=== PATIENT | female | born 1995 | race Two or more races ===

== ENCOUNTER 2022-07-11 09:20 | Emergency (ER) | payer MEDICAID, OTHER, SELFPAY ==
[2022-07-11 09:25] VITALS: BP 107/42; PULSE 72; RESP 18; TEMP 36.6; O2SAT 98; BMI 22.3
[2022-07-11 09:47] LABS: MANUAL DIFF FLAG NO
[2022-07-11 09:49] LABS: Basophils Percent Auto 0.3 % (0-2); Eosinophils Percent Auto 0.3 % (0-4); Hematocrit 34.6 % (37.0-47.0); Hemoglobin 12.2 g/dl (12.0-16.0); Imm Gran Abs Auto 0.02 X10*3/uL (0.00-0.03); Imm Gran Pct Auto 0.3 % (0.0-0.4); Lymphocytes Absolute Auto 1.8 X10*3/uL (1.2-4.9); Lymphocytes Percent Auto 27.1 % (20-40); Mean Corpuscular HGB Conc 35.3 g/dl (31.0-35.0); Mean Corpuscular Hemoglobin 29.7 pg (27.0-33.0); Mean Corpuscular Volume 84.2 fL (80.0-98.0); Mean Platelet Volume 10.7 fL (9.4-12.3); Monocytes Absolute Auto 0.4 X10*3/uL (0.1-1.2); Monocytes Percent Auto 6.5 % (2-11); Neutrophils Absolute Auto 4.3 x10*3/uL (2.0-8.3); Neutrophils Percent Auto 65.5 % (45-73); Platelet Count 235 X10*3/uL (160-400); Red Blood Count 4.11 X10*6/uL (4.20-5.50); Red Cell Distribution Width 11.9 % (11.0-16.0); White Blood Count 6.6 X10*3/uL (4.8-10.8)
--- NOTE | 2022-07-11 09:56 | ED.NAVMDI ---
HPI - Nausea/Vomiting/Diarrhea General Chief complaint: Nausea/Vomiting/Diarrhea Stated complaint: headache, vomiting, body aches Time Seen by Provider: 07/11/22 09:49 History of Present Illness HPI Narrative: patient complains of 1 week of nausea and vomiting, no diarrhea, she also complains of body aches and a mild headache, she is not sure if she is Headache is mild, gradual onset, no dizziness or confusion, she attributes it to not eating normally for several days and feels very hungry Body aches are not accompanied by any fever no runny nose no cough no diarrhea no chills no sore throat no difficulty breathing or swallowing There is no abdominal pain there is no dysuria there is no vaginal bleeding no pelvic pain She believes last menstrual period was 5-6 weeks ago Related Data Previous Rx's Medication Instructions Recorded metoclopramide HCl 10 mg tablet 10 mg PO Q6H PRN nausea and 07/11/22 (Reglan) vomiting #10 tabs Allergies Allergy/AdvReac Type Severity Reaction Status Date / Time No Known Allergies Allergy Verified 07/11/22 09:31 [facility] Past Medical History Source: nursing notes reviewed Social History Social History Advance Directives: No Advance Directives Information Provided: Yes Physical Exam Vital Signs: Vital Signs: Last Vital Signs Temp 97.9 F 07/11/22 09:25 Pulse 72 07/11/22 09:25 Resp 18 07/11/22 09:25 BP 107/42 L 07/11/22 09:25 Pulse Ox 98 07/11/22 09:25 O2 Del Method 07/11/22 09:25 BMI result Body Mass Index 22.3 general appearance is comfortable relax no acute distress, and cooperative The eyes anicteric no pallor The pharynx no redness swelling or exudate, membranes are mildly dry Neck is supple The chest is clear to auscultation bilateral Heart no murmur Abdomen is soft and nontender Extremities no edema no rash Course Course Course Narrative: patient had a positive test, beta hCG was 887145 Urinalysis had a specific gravity of 1.03 mildly elevated, squamous epithelial were elevated, there was bacteria in a contaminated sample but patient has no symptoms of UTI and no treatment was offered now in this contaminated specimen No significant lab abnormality on chemistry or CBC, kidney function was normal glucose was 80 Patient responded well to Zofran and hydration and felt much better and was tolerating p.o. without nausea and was discharged after discussion about need to follow up with care and she was given the number of the [facility] napoles Medications Administered Discontinued Medications Generic Name Dose Route Start Last Admin Trade Name Divya PRN Reason Stop Dose Admin Sodium Chloride 1,000 mls @ 999 mls/hr 07/11/22 10:00 07/11/22 10:51 Ns IVCONT 07/11/22 11:00 999 mls/hr .[id number] ALLAN Administration Ondansetron HCl 4 mg 07/11/22 09:55 07/11/22 10:57 Ondansetron Hcl 4 Mg/2 Ml Vial IVPUSH 07/11/22 09:56 4 mg ONCE ONE Administration Medical Decision Making Lab Data MDM Lab Attestation statement: I reviewed the patient's lab results. 07/11/22 09:41 07/11/22 09:41 Labs: Lab Results 07/11/22 07/11/22 07/11/22 Range/Units 09:41 09:41 09:41 WBC 6.6 (4.8-10.8) X10*3/uL RBC 4.11 L (4.20-5.50) X10*6/uL Hgb 12.2 (12.0-16.0) g/dl Hct 34.6 L (37.0-47.0) % MCV 84.2 (80.0-98.0) fL MCH 29.7 (27.0-33.0) pg MCHC 35.3 H (31.0-35.0) g/dl RDW 11.9 (11.0-16.0) % Plt Count 235 (160-400) X10*3/uL MPV 10.7 (9.4-12.3) fL Immature Gran % (Auto) 0.3 (0.0-0.4) % Neut % (Auto) 65.5 (45-73) % Lymph % (Auto) 27.1 (20-40) % Delta % (Auto) 6.5 (2-11) % Eos % (Auto) 0.3 (0-4) % Baso % (Auto) 0.3 (0-2) % Lymph # (Auto) 1.8 (1.2-4.9) X10*3/uL Delta # (Auto) 0.4 (0.1-1.2) X10*3/uL Eos # (Auto) 0.0 (0.0-0.4) X10*3/uL Baso # (Auto) 0.0 (0.0-0.2) X10*3/uL Abs Immat Gran (auto) 0.02 (0.00-0.03) X10*3/uL Absolute Neuts (auto) 4.3 (2.0-8.3) x10*3/uL Absolute Nucleated RBC 0.000 (0.0-0.012) X10*3/uL Nucleated RBC % (auto) 0.0 (0.0-0.2) /100WBC Sodium 136 (135-145) mmol/L Potassium 3.7 (3.3-5.1) mmol/L Chloride 105 (96-108) mmol/L Carbon Dioxide 21 L (22-29) mmol/L Anion Gap 14 (12-20) BUN 7 L (9-16) mg/dL Creatinine 0.56 (0.5-1.4) mg/dL Estim Creat Clear Calc 97.4 Estimated GFR > 60 Random Glucose 80 (60-115) mg/dL Calcium 9.3 (8.4-10.2) mg/dL Beta HCG, Quant 275090 mIU/mL Urine Color Urine Appearance Urine pH (5.0-9.0) Ur Specific [place] (1.005-1.025) Urine Protein (Neg-Trace) mg/dL Urine Glucose (UA) (Negative) mg/dL Urine Ketones (Negative) mg/dL Urine Blood (Negative) Urine Nitrite (Negative) Ur Leukocyte Esterase (Negative) Urine RBC (0-2) /HPF Urine WBC (0-5) /HPF Ur Squamous Epith Cells (0-2) /HPF Urine Bacteria (None Seen) Hyaline Casts (0-2) /LPF Urine Test (NEGATIVE) COVID-19 (LU) (Negative) COVID-19 Clin Com Influenza Type A (PARUL) Negative (Negative) Influenza Type B (PARUL) Negative (Negative) Influenza A & B Note See Note 07/11/22 07/11/22 07/11/22 Range/Units 09:41 10:01 10:01 WBC (4.8-10.8) X10*3/uL RBC (4.20-5.50) X10*6/uL Hgb (12.0-16.0) g/dl Hct (37.0-47.0) % MCV (80.0-98.0) fL MCH (27.0-33.0) pg MCHC (31.0-35.0) g/dl RDW (11.0-16.0) % Plt Count (160-400) X10*3/uL MPV (9.4-12.3) fL Immature Gran % (Auto) (0.0-0.4) % Neut % (Auto) (45-73) % Lymph % (Auto) (20-40) % Delta % (Auto) (2-11) % Eos % (Auto) (0-4) % Baso % (Auto) (0-2) % Lymph # (Auto) (1.2-4.9) X10*3/uL Delta # (Auto) (0.1-1.2) X10*3/uL Eos # (Auto) (0.0-0.4) X10*3/uL Baso # (Auto) (0.0-0.2) X10*3/uL Abs Immat Gran (auto) (0.00-0.03) X10*3/uL Absolute Neuts (auto) (2.0-8.3) x10*3/uL Absolute Nucleated RBC (0.0-0.012) X10*3/uL Nucleated RBC % (auto) (0.0-0.2) /100WBC Sodium (135-145) mmol/L Potassium (3.3-5.1) mmol/L Chloride (96-108) mmol/L Carbon Dioxide (22-29) mmol/L Anion Gap (12-20) BUN (9-16) mg/dL Creatinine (0.5-1.4) mg/dL Estim Creat Clear Calc Estimated GFR Random Glucose (60-115) mg/dL Calcium (8.4-10.2) mg/dL Beta HCG, Quant mIU/mL Urine Color Dark Yellow Urine Appearance Cloudy Urine pH 6.0 (5.0-9.0) Ur Specific [place] >= 1.030 H (1.005-1.025) Urine Protein 30 (1+) H (Neg-Trace) mg/dL Urine Glucose (UA) Negative (Negative) mg/dL Urine Ketones >=160 (Negative) mg/dL Urine Blood Negative (Negative) Urine Nitrite Negative (Negative) Ur Leukocyte Esterase Small (1+) H (Negative) Urine RBC 0-2 (0-2) /HPF Urine WBC 0-5 (0-5) /HPF Ur Squamous Epith Cells >20 (0-2) /HPF Urine Bacteria 4+ (None Seen) Hyaline Casts 0-2 (0-2) /LPF Urine Test WEAKLY POSITIVE H (NEGATIVE) COVID-19 (LU) Negative (Negative) COVID-19 Clin Com See Note Influenza Type A (PARUL) (Negative) Influenza Type B (PARUL) (Negative) Influenza A & B Note Discharge Plan Discharge Clinical Impression: Hyperemesis gravidarum, Patient Disposition: Home, Self-Care Additional Instructions: follow closely with midwives for care [phone] For vomiting you can use Reglan as needed for nausea Return any time or for uncontrolled vomiting dehydration abdominal pain vaginal bleeding any worse condition or any concerns Drink plenty of fluids, sometimes frequent small portions of food and able you to eat without becoming nauseous Prescriptions: New metoclopramide HCl [Reglan] 10 mg tablet 10 mg PO Q6H PRN (Reason: nausea and vomiting) Qty: 10 0RF Referrals: Cain Combs MD [Physician] - Stand Alone Forms: Work/School Release Interventions: ED Discharge Assessment Last Done: 07/11/22 13:50 Discharge Date/Time: 07/11/22 13:51
[2022-07-11 10:05] LABS: COVID-19 Test Negative (Negative); IDNOW Serial# 16C4AD1C; IDNOW Serial# BCCEAD1C; Influenza A Negative (Negative); Influenza B2 Negative (Negative)
[2022-07-11 10:08] LABS: Anion Gap 14 (12-20); Blood Urea Nitrogen 7 mg/dL (9-16); Calcium 9.3 mg/dL (8.4-10.2); Carbon Dioxide 21 mmol/L (22-29); Chloride 105 mmol/L (96-108); Creatinine Clr Calc Pharmacy 97.4; Estimated Glomerular Filt Rate > 60; Glucose Random 80 mg/dL (60-115); Potassium 3.7 mmol/L (3.3-5.1); Sodium 136 mmol/L (135-145)
[2022-07-11 10:10] LABS: Appearance Urine Cloudy; Color Urine Dark Yellow; Glucose Urine UA Negative (Negative); Leukocyte Esterase Urine Small (1+) (Negative); Nitrite Urine Negative (Negative); Specific Gravity - Urine >= 1.030 (1.005-1.025); UMIC TRIGGER UACC YES; Urine Blood Negative (Negative); Urine Ketones >=160 mg/dL (Negative); Urine Protein 30 (1+) mg/dL (Neg-Trace)
[2022-07-11 10:16] LABS: UPreg QC Valid YES; Urine Pregnancy WEAKLY POSITIVE (NEGATIVE)
[2022-07-11 10:18] LABS: Bacteria Urine 4+ (None Seen); Hyaline Casts Urine 0-2 /LPF (0-2); RBC Urine 0-2 /HPF (0-2); Squamous Epithelial Cell Urine >20 /HPF (0-2); UACC Culture Trigger YES; WBC Urine 0-5 /HPF (0-5)
[2022-07-11] MEDS: 0.9 % Sodium Chloride 1,000 ML 999 ML IVCONT (10:51)
[2022-07-11] MEDS: ondansetron HCL 4 MG/2 ML VIAL IVPUSH (10:57)
== END 2022-07-11 13:51 | disposition home or self-care (01) ==
PROVIDERS: Physician Assistant Medical; Emergency Provider Emergency Medicine
DX: O21.0 Mild hyperemesis gravidarum (principal); Z3A.01 Less than 8 weeks gestation of pregnancy; Z20.822 Contact with and (suspected) exposure to COVID-19; Z79.899 Other long term (current) drug therapy
CPT/HCPCS: 80048; 81001; 81025; 84702; 85025; 87086; 87502; 87635; 96374; 99283; 99284; J2405

== ENCOUNTER 2022-07-19 15:04 | Emergency (ER) | payer MEDICAID, OTHER, SELFPAY ==
--- NOTE | ~2022-07-19 | US_ITS ---
EXAMINATION: US OBSTETRICAL ULTRASOUND CLINICAL INFORMATION: , abdominal pain COMPARISON: None. Single live intrauterine . [place]-rump length 2.4 cm corresponds to 9 week 1 day . There is a yolk sac. heart rate 165 bpm. 2 associated fluid collections. One measuring 2.2 x 1.6 x 1.3 cm. Another 2.7 x 1.4 x 1.1 cm. These could represent areas of subchorionic bleed The right ovary is 2.9 x 2 x 2 cm. Normal-appearing. The left ovary is 3 x 2.1 x 2.4 cm. Normal-appearing. No free fluid US/US OB <= 14 weeks fetus IMPRESSION: Single live intrauterine . 9 weeks 1 day by ultrasound criteria. 2 fluid collections are identified by the electronics recycler may represent areas of subchorionic hemorrhage
--- NOTE | ~2022-07-19 | US_ITS ---
EXAMINATION: US ABDOMEN LIMITED CLINICAL INFORMATION: Right upper quadrant pain. COMPARISON: None TECHNIQUE: Real-time imaging of the right upper quadrant abdominal viscera. FINDINGS: The pancreas is not well delineated. No free fluid in the area. Liver is grossly within normal limits. No lesion or ductal dilatation. Gallbladder limited in visualization due to shadowing. I suspect multiple gallstones or possibly sludge or even lesions/polyp formation. No convincing evidence of gallbladder wall edema on the imaging submitted. The common duct is 5 mm within normal limits. The right kidney is 10 cm. No hydronephrosis or mass is seen. Impression; The gallbladder appears abnormal. Multiple filling defects with some shadowing would suggest gallstones. Given the overall appearance tumefactive sludge would be a consideration. Polyp formation cannot be excluded. No convincing evidence for gallbladder wall edema. There is no ductal dilatation
[2022-07-19 15:06] VITALS: BP 111/73; PULSE 72; RESP 18; TEMP 36.4; O2SAT 98; BMI 21.7
--- NOTE | 2022-07-19 15:06 | ED_ITS ---
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 She states her vomit has occasionally had red steaks, no clots, coffe ground emesis, or large volume hematemesis. She states she was seen here on the 11 of July for similar complaints, was sent home with ashley Haider with some improvement in the nausea. She states the epigastric pain is after she eats. She has had several episodes of forceful vomiting with blood-streaked emesis. She denies any bloody bowel movements or melanotic stools. She denies any lower abdominal cramping, vaginal bleeding. She denies any fever or chills. She does report intermittent right upper quadrant pain and right upper back pain as well. The pains come and go. <RAMOS Polanco - Last Filed: 07/19/22 18:00> MD Complaint: abdominal pain <RAMOS Polanco - Last Filed: 07/19/22 18:00> Onset (ago): week(s) (2) <RAMOS Polanco - Last Filed: 07/19/22 18:00> Pain Consistency: intermittent <RAMOS Polanco Last Filed: 07/19/22 18:00> Location: abdomen <RAMOS Polanco Last Filed: 07/19/22 18:00> Severity: moderate <RAMOS Polanco Last Filed: 07/19/22 18:00> Severity scale (1-10): 6 <RAMOS Polanco Last Filed: 07/19/22 18:00> Quality: Aching and Burning <RAMOS Polanco Last Filed: 07/19/22 18:00> Relieving factors: none <RAMOS Polanco Last Filed: 07/19/22 18:00> Exacerbating factors: eating <RAMOS Polanco Last Filed: 07/19/22 18:00> Associated symptoms: nausea, vomiting and abdominal pain <RAMOS Polanco Last Filed: 07/19/22 18:00> Vaginal discharge: none <RAMOS Polanco Last Filed: 07/19/22 18:00> Vaginal bleeding: none <RAMOS Polanco Last Filed: 07/19/22 18:00> Patient : Yes <RAMOS Polanco Last Filed: 07/19/22 18:00> Related Data Home medications: Previous Rx's Medication Instructions Recorded metoclopramide HCl 10 mg tablet 10 mg PO Q6H PRN nausea and 07/11/22 (Reglan) vomiting #10 tabs cephalexin 500 mg tablet 500 mg PO Q6H 7 days #28 tabs 07/19/22 ondansetron 4 mg disintegrating 4 mg PO Q8H PRN nausea and 07/19/22 tablet vomiting #10 tabs pantoprazole 40 mg tablet,delayed 40 mg PO DAILY #30 tabs 07/19/22 release (Protonix) prenat.vits,jayesh,ykv-[id number] 1 tab PO DAILY #30 tabs 07/19/22 <RAMOS Weaver Last Filed: 07/19/22 15:13> Allergies/Adverse reactions: Allergies Allergy/AdvReac Type Severity Reaction Status Date / Time No Known Allergies Allergy Verified 07/11/22 09:31 <RAMOS Weaver Last Filed: 07/19/22 15:13> Review of Systems Review of Systems: Yes all other systems are reviewed and are negative <RAMOS Polanco Last Filed: 07/19/22 18:00> [facility] Social History Social History: Social History Alcohol intake: unknown Smoked in Last 30 Days: No Use of substances other than those prescribed or required for medical reasons: Unknown Advance Directives: No Advance Directives Information Provided: No Patient : Yes <RAMOS Weaver - Last Filed: 07/19/22 15:13> Physical Exam Vital Signs: Vital Signs: Last Vital Signs Temp 98.1 F 07/19/22 20:27 Pulse 70 07/19/22 20:27 Resp 16 07/19/22 20:27 BP 104/61 07/19/22 20:27 Pulse Ox 98 07/19/22 20:27 O2 Del Method 07/19/22 20:27 BMI result Body Mass Index 21.7 <RAMOS Weaver - Last Filed: 07/19/22 15:13> Vital Signs: Last Vital Signs Temp 98.1 F 07/19/22 20:27 Pulse 70 07/19/22 20:27 Resp 16 07/19/22 20:27 BP 104/61 07/19/22 20:27 Pulse Ox 98 07/19/22 20:27 O2 Del Method 07/19/22 20:27 BMI result Body Mass Index 21.7 <RAMOS Polanco - Last Filed: 07/19/22 18:00> Vital Signs: Last Vital Signs Temp 98.1 F 07/19/22 20:27 Pulse 70 07/19/22 20:27 Resp 16 07/19/22 20:27 BP 104/61 07/19/22 20:27 Pulse Ox 98 07/19/22 20:27 O2 Del Method 07/19/22 20:27 BMI result Body Mass Index 21.7 <RAMOS Goncalves - Last Filed: 07/19/22 22:44> Appearance: Alert. Oriented X3. No acute distress. Eyes: Pupils equal, round and reactive to light. ENT: Pharynx normal. Moist mucus membranes. Neck: Normal inspection. Neck supple. CVS: Normal heart rate and rhythm. Pulses normal. Respiratory: No respiratory distress. Breath sounds normal. Abdomen: Soft with epigastric tenderness, negative Regan sign. normal +BS x4. Pelvic deferred. Skin: Skin warm and dry. Normal skin color. Normal skin turgor. No rashes. Extremities: No lower extremity edema. Neuro: Oriented X 3. No motor deficit. No sensory deficit. Nonfocal <RAMOS Polanco - Last Filed: 07/19/22 18:00> Course Course Course Narrative: ZANDER--26-year-old female @ unknown weeks gestation. Unknown LMP. presenting to the ED c/o nausea, vomiting, blood streaks in vomit x few days. Also reports chest pain and headache. Found out she was in ED on 07/11 when she presented to ED w/similar sx. Denies abdominal pain EKG, Labs including hCG, COVID-19/influenza, UA, IV have ordered <RAMOS Weaver - Last Filed: 07/19/22 15:13> Reevaluation(s) Reevaluation #1: Labs showing stable hematocrit, up to 35.8 from 30/4 0.6 last week. No leukocytosis. Platelets are normal. She has transaminitis with normal bilirubin and alk-phos. Her troponin is normal. She has mild elevation of her lipase as well, however not 3 times the upper limit of normal. Less likely pancreatitis. Her hCG is on the rise. Will get right upper quadrant ultrasound given her right upper quadrant pain and back pain, this could be referred from the gallbladder. She was treated with Tums, Prilosec and Zofran. Will reassess. <RAMOS Polanco - Last Filed: 07/19/22 18:00> Reevaluation #2: Ultrasound of right upper quadrant with normal gallbladder, multiple filling defects with some shadowing which could suggest gallstones, patient appears comfortable, negative/benign abdominal exam upon re-evaluation. Polyp formation can not be excluded discuss these results with patient. No convincing evidence for gallbladder wall edema. No ductal dilation. Patient's urine does have an infection will discharge home on Keflex as she is currently . According to patient she is however unsure how far along she is. Will order OB pelvic and transvaginal. <RAMOS Goncalves - Last Filed: 07/19/22 22:44> Time: 20:07 <RAMOS Goncalves - Last Filed: 07/19/22 22:44> Reevaluation #3: Patient's ultrasound with single live intrauterine measuring 9 weeks and 1 day by ultrasound. There are 2 fluid collections that are identified concerning for subchorionic hemorrhage, patient denies lower abdominal pain, vaginal bleeding or discharge, contractions. Patient refusing pelvic exam. Explained to her that this could potentially lead to a miscarriage or a normal . I did explain to her that she needs to return if she experiences lower abdominal pain or abdominal pain, contractions, vaginal bleeding, went over strict return precautions. I will send her home with vitamins, OBGYN follow-up. I advised her to return with any new or worsening symptoms. Educated patient on diagnosis and treatment plan, answered all question, patient verbalizes understanding. At this time patient will be discharged home, advised to return with new or worsening symptoms. Educated on worrisome signs and symptoms and when to return. At this time I feel comfortable discharge home. Discussed this case w/ my attending Dr. Landaverde who agrees w. diagnosis and tx plan. To know at time of discharge patient's pain and right upper quadrant improved, I did give her strict return precautions and advised her to return if this worsens. She is tolerating p.o. and appears comfortable no acute distress. Stable vitals. <RAMOS Goncalves - Last Filed: 07/19/22 22:44> Medications Administered Discontinued Medications Generic Name Dose Route Start Last Admin Trade Name Julio Cesarq PRN Reason Stop Dose Admin Calcium Carbonate 1,500 mg 07/19/22 16:11 07/19/22 16:20 Calcium Carbonate 750 Mg Tab.Chew PO 07/19/22 16:12 1,500 mg ONCE ONE Administration Sodium Chloride 1,000 mls @ 999 mls/hr 07/19/22 15:15 07/19/22 16:29 Ns IV 07/19/22 16:15 Infused .Q1H1M ALLAN Infusion Omeprazole 40 mg 07/19/22 16:11 07/19/22 16:20 Omeprazole 40 Mg Capsule.Dr PO 07/19/22 16:12 40 mg ONCE ONE Administration Ondansetron HCl 4 mg 07/19/22 16:11 07/19/22 16:20 Ondansetron Odt 4 Mg Tab.Rapdis TRANSLINGU 07/19/22 16:12 4 mg ONCE ONE Administration <RAMOS Weaver - Last Filed: 07/19/22 15:13> Medications Administered Discontinued Medications Generic Name Dose Route Start Last Admin Trade Name Freq PRN Reason Stop Dose Admin Calcium Carbonate 1,500 mg 07/19/22 16:11 07/19/22 16:20 Calcium Carbonate 750 Mg Tab.Chew PO 07/19/22 16:12 1,500 mg ONCE ONE Administration Sodium Chloride 1,000 mls @ 999 mls/hr 07/19/22 15:15 07/19/22 16:29 Ns IV 07/19/22 16:15 Infused .Q1H1M ALLAN Infusion Omeprazole 40 mg 07/19/22 16:11 07/19/22 16:20 Omeprazole 40 Mg Capsule. PO 07/19/22 16:12 40 mg ONCE ONE Administration Ondansetron HCl 4 mg 07/19/22 16:11 07/19/22 16:20 Ondansetron Odt 4 Mg Tab.Rapdis TRANSLINGU 07/19/22 16:12 4 mg ONCE ONE Administration <RAMOS Polanco - Last Filed: 07/19/22 18:00> Medications Administered Discontinued Medications Generic Name Dose Route Start Last Admin Trade Name Freq PRN Reason Stop Dose Admin Calcium Carbonate 1,500 mg 07/19/22 16:11 07/19/22 16:20 Calcium Carbonate 750 Mg Tab.Chew PO 07/19/22 16:12 1,500 mg ONCE ONE Administration Sodium Chloride 1,000 mls @ 999 mls/hr 07/19/22 15:15 07/19/22 16:29 Ns IV 07/19/22 16:15 Infused .Q1H1M ALLAN Infusion Omeprazole 40 mg 07/19/22 16:11 07/19/22 16:20 Omeprazole 40 Mg Capsule. PO 07/19/22 16:12 40 mg ONCE ONE Administration Ondansetron HCl 4 mg 07/19/22 16:11 07/19/22 16:20 Ondansetron Odt 4 Mg Tab.Rapdis TRANSLINGU 07/19/22 16:12 4 mg ONCE ONE Administration <RAMOS Goncalves - Last Filed: 07/19/22 22:44> Medical Decision Making Medical Decision Making MDM Narrative: 26-year-old female presents to the ER for evaluation of burning epigastric abdominal pain, chest pain, blood-streaked vomitus and headaches. Seen recently in the ER for the same, sent home with antiemetics. She also endorses right upper quadrant pain and scapular pain. Could be referred from a gallbladder. She has mild transaminitis on lab work. Ultrasound is pending. Her blood streaked vomitus is most consistent with minor Trish-Givens tears and not over upper GI bleeding. Could be some mild gastritis as well. <RAMOS Polanco - Last Filed: 07/19/22 18:00> Differential Diagnosis Differential Diagnoses: The differential diagnosis associated with the presentation includes <RAMOS Polanco - Last Filed: 07/19/22 18:00> Upper GI bleed, Trish-Givens tears, gastritis, PUD, cholecystitis, biliary colic, less likely ACS or PE, no evidence of threatened or miscarriage <RAMOS Polanco - Last Filed: 07/19/22 18:00> Lab Data MDM Lab Attestation statement: I reviewed the patient's lab results. <RAMOS Polanco Last Filed: 07/19/22 18:00> Mild hyponatremia most likely hypovolemic in nature. Stable blood counts, no leukocytosis. Transaminitis without abnormalities of bilirubin or alk-phos to suggest a biliary obstruction <RAMOS Polanco Last Filed: 07/19/22 18:00> Result Diagrams: 07/19/22 15:24 07/19/22 15:24 <RAMOS Weaver - Last Filed: 07/19/22 15:13> Labs: Lab Results 07/19/22 07/19/22 07/19/22 Range/Units 15:24 15:24 15:24 WBC 6.0 (4.8-10.8) X10*3/uL RBC 4.25 (4.20-5.50) X10*6/uL Hgb 12.6 (12.0-16.0) g/dl Hct 35.8 L (37.0-47.0) % MCV 84.2 (80.0-98.0) fL MCH 29.6 (27.0-33.0) pg MCHC 35.2 H (31.0-35.0) g/dl RDW 11.9 (11.0-16.0) % Plt Count 240 (160-400) X10*3/uL MPV 11.0 (9.4-12.3) fL Immature Gran % (Auto) 0.2 (0.0-0.4) % Neut % (Auto) 62.5 (45-73) % Lymph % (Auto) 26.8 (20-40) % [place] % (Auto) 9.8 (2-11) % Eos % (Auto) 0.2 (0-4) % Baso % (Auto) 0.5 (0-2) % Lymph # (Auto) 1.6 (1.2-4.9) X10*3/uL [place] # (Auto) 0.6 (0.1-1.2) X10*3/uL Eos # (Auto) 0.0 (0.0-0.4) X10*3/uL Baso # (Auto) 0.0 (0.0-0.2) X10*3/uL Abs Immat Gran (auto) 0.01 (0.00-0.03) X10*3/uL Absolute Neuts (auto) 3.8 (2.0-8.3) x10*3/uL Absolute Nucleated RBC 0.000 (0.0-0.012) X10*3/uL Nucleated RBC % (auto) 0.0 (0.0-0.2) /100WBC PT (10.0-13.1) SEC INR (0.9-1.1) Sodium 131 L (135-145) mmol/L Potassium 3.7 (3.3-5.1) mmol/L Chloride 102 (96-108) mmol/L Carbon Dioxide 19 L (22-29) mmol/L Anion Gap 14 (12-20) BUN 6 L (9-16) mg/dL Creatinine 0.57 (0.5-1.4) mg/dL Estim Creat Clear Calc 98.3 Estimated GFR > 60 Random Glucose 86 (60-115) mg/dL Calcium 8.9 (8.4-10.2) mg/dL Magnesium 2.1 (1.6-2.6) mg/dL Total Bilirubin 0.9 (0.0-1.0) mg/dL Direct Bilirubin 0.4 (0.0-0.5) mg/dL AST 147 H (5-31) U/L ALT 151 H (0-31) U/L Alkaline Phosphatase 51 (39-117) U/L Troponin I High Sens < 3.5 (<3.5-17.0) ng/L Total Protein 7.2 (6.5-8.0) g/dL Albumin 4.1 (3.5-5.0) g/dL Lipase 93 H (8-78) U/L Beta HCG, Quant 840306 mIU/mL Urine Color Urine Appearance Urine pH (5.0-9.0) Ur Specific [place] (1.005-1.025) Urine Protein (Neg-Trace) mg/dL Urine Glucose (UA) (Negative) mg/dL Urine Ketones (Negative) mg/dL Urine Blood (Negative) Urine Nitrite (Negative) Ur Leukocyte Esterase (Negative) Urine RBC (0-2) /HPF Urine WBC (0-5) /HPF Ur Squamous Epith Cells (0-2) /HPF Calcium Oxalate Crystal Urine Bacteria (None Seen) Hyaline Casts (0-2) /LPF COVID-19 (LU) (Negative) COVID-19 Clin Com Influenza Type A (PARUL) (Negative) Influenza Type B (PARUL) (Negative) Influenza A & B Note 07/19/22 07/19/22 07/19/22 Range/Units 15:24 15:24 15:24 WBC (4.8-10.8) X10*3/uL RBC (4.20-5.50) X10*6/uL Hgb (12.0-16.0) g/dl Hct (37.0-47.0) % MCV (80.0-98.0) fL MCH (27.0-33.0) pg MCHC (31.0-35.0) g/dl RDW (11.0-16.0) % Plt Count (160-400) X10*3/uL MPV (9.4-12.3) fL Immature Gran % (Auto) (0.0-0.4) % Neut % (Auto) (45-73) % Lymph % (Auto) (20-40) % [place] % (Auto) (2-11) % Eos % (Auto) (0-4) % Baso % (Auto) (0-2) % Lymph # (Auto) (1.2-4.9) X10*3/uL [place] # (Auto) (0.1-1.2) X10*3/uL Eos # (Auto) (0.0-0.4) X10*3/uL Baso # (Auto) (0.0-0.2) X10*3/uL Abs Immat Gran (auto) (0.00-0.03) X10*3/uL Absolute Neuts (auto) (2.0-8.3) x10*3/uL Absolute Nucleated RBC (0.0-0.012) X10*3/uL Nucleated RBC % (auto) (0.0-0.2) /100WBC PT 16.0 H (10.0-13.1) SEC INR 1.4 H (0.9-1.1) Sodium (135-145) mmol/L Potassium (3.3-5.1) mmol/L Chloride (96-108) mmol/L Carbon Dioxide (22-29) mmol/L Anion Gap (12-20) BUN (9-16) mg/dL Creatinine (0.5-1.4) mg/dL Estim Creat Clear Calc Estimated GFR Random Glucose (60-115) mg/dL Calcium (8.4-10.2) mg/dL Magnesium (1.6-2.6) mg/dL Total Bilirubin (0.0-1.0) mg/dL Direct Bilirubin (0.0-0.5) mg/dL AST (5-31) U/L ALT (0-31) U/L Alkaline Phosphatase (39-117) U/L Troponin I High Sens (<3.5-17.0) ng/L Total Protein (6.5-8.0) g/dL Albumin (3.5-5.0) g/dL Lipase (8-78) U/L Beta HCG, Quant mIU/mL Urine Color Urine Appearance Urine pH (5.0-9.0) Ur Specific [place] (1.005-1.025) Urine Protein (Neg-Trace) mg/dL Urine Glucose (UA) (Negative) mg/dL Urine Ketones (Negative) mg/dL Urine Blood (Negative) Urine Nitrite (Negative) Ur Leukocyte Esterase (Negative) Urine RBC (0-2) /HPF Urine WBC (0-5) /HPF Ur Squamous Epith Cells (0-2) /HPF Calcium Oxalate Crystal Urine Bacteria (None Seen) Hyaline Casts (0-2) /LPF COVID-19 (LU) Negative (Negative) COVID-19 Clin Com See Note Influenza Type A (PARUL) Negative (Negative) Influenza Type B (PARUL) Negative (Negative) Influenza A & B Note See Note 07/19/22 Range/Units 19:50 WBC (4.8-10.8) X10*3/uL RBC (4.20-5.50) X10*6/uL Hgb (12.0-16.0) g/dl Hct (37.0-47.0) % MCV (80.0-98.0) fL MCH (27.0-33.0) pg MCHC (31.0-35.0) g/dl RDW (11.0-16.0) % Plt Count (160-400) X10*3/uL MPV (9.4-12.3) fL Immature Gran % (Auto) (0.0-0.4) % Neut % (Auto) (45-73) % Lymph % (Auto) (20-40) % [place] % (Auto) (2-11) % Eos % (Auto) (0-4) % Baso % (Auto) (0-2) % Lymph # (Auto) (1.2-4.9) X10*3/uL [place] # (Auto) (0.1-1.2) X10*3/uL Eos # (Auto) (0.0-0.4) X10*3/uL Baso # (Auto) (0.0-0.2) X10*3/uL Abs Immat Gran (auto) (0.00-0.03) X10*3/uL Absolute Neuts (auto) (2.0-8.3) x10*3/uL Absolute Nucleated RBC (0.0-0.012) X10*3/uL Nucleated RBC % (auto) (0.0-0.2) /100WBC PT (10.0-13.1) SEC INR (0.9-1.1) Sodium (135-145) mmol/L Potassium (3.3-5.1) mmol/L Chloride (96-108) mmol/L Carbon Dioxide (22-29) mmol/L Anion Gap (12-20) BUN (9-16) mg/dL Creatinine (0.5-1.4) mg/dL Estim Creat Clear Calc Estimated GFR Random Glucose (60-115) mg/dL Calcium (8.4-10.2) mg/dL Magnesium (1.6-2.6) mg/dL Total Bilirubin (0.0-1.0) mg/dL Direct Bilirubin (0.0-0.5) mg/dL AST (5-31) U/L ALT (0-31) U/L Alkaline Phosphatase (39-117) U/L Troponin I High Sens (<3.5-17.0) ng/L Total Protein (6.5-8.0) g/dL Albumin (3.5-5.0) g/dL Lipase (8-78) U/L Beta HCG, Quant mIU/mL Urine Color Yellow Urine Appearance Cloudy Urine pH 6.0 (5.0-9.0) Ur Specific [place] 1.015 (1.005-1.025) Urine Protein Negative (Neg-Trace) mg/dL Urine Glucose (UA) Negative (Negative) mg/dL Urine Ketones 80 (Negative) mg/dL Urine Blood Negative (Negative) Urine Nitrite Negative (Negative) Ur Leukocyte Esterase Small (1+) H (Negative) Urine RBC 0-2 (0-2) /HPF Urine WBC 0-5 (0-5) /HPF Ur Squamous Epith Cells 11-20 (0-2) /HPF Calcium Oxalate Crystal Present Urine Bacteria 3+ (None Seen) Hyaline Casts 0-2 (0-2) /LPF COVID-19 (LU) (Negative) COVID-19 Clin Com Influenza Type A (PARUL) (Negative) Influenza Type B (PARUL) (Negative) Influenza A & B Note <RAMOS Weaver - Last Filed: 07/19/22 15:13> Lab Results 07/19/22 07/19/22 07/19/22 Range/Units 15:24 15:24 15:24 WBC 6.0 (4.8-10.8) X10*3/uL RBC 4.25 (4.20-5.50) X10*6/uL Hgb 12.6 (12.0-16.0) g/dl Hct 35.8 L (37.0-47.0) % MCV 84.2 (80.0-98.0) fL MCH 29.6 (27.0-33.0) pg MCHC 35.2 H (31.0-35.0) g/dl RDW 11.9 (11.0-16.0) % Plt Count 240 (160-400) X10*3/uL MPV 11.0 (9.4-12.3) fL Immature Gran % (Auto) 0.2 (0.0-0.4) % Neut % (Auto) 62.5 (45-73) % Lymph % (Auto) 26.8 (20-40) % [place] % (Auto) 9.8 (2-11) % Eos % (Auto) 0.2 (0-4) % Baso % (Auto) 0.5 (0-2) % Lymph # (Auto) 1.6 (1.2-4.9) X10*3/uL [place] # (Auto) 0.6 (0.1-1.2) X10*3/uL Eos # (Auto) 0.0 (0.0-0.4) X10*3/uL Baso # (Auto) 0.0 (0.0-0.2) X10*3/uL Abs Immat Gran (auto) 0.01 (0.00-0.03) X10*3/uL Absolute Neuts (auto) 3.8 (2.0-8.3) x10*3/uL Absolute Nucleated RBC 0.000 (0.0-0.012) X10*3/uL Nucleated RBC % (auto) 0.0 (0.0-0.2) /100WBC PT (10.0-13.1) SEC INR (0.9-1.1) Sodium 131 L (135-145) mmol/L Potassium 3.7 (3.3-5.1) mmol/L Chloride 102 (96-108) mmol/L Carbon Dioxide 19 L (22-29) mmol/L Anion Gap 14 (12-20) BUN 6 L (9-16) mg/dL Creatinine 0.57 (0.5-1.4) mg/dL Estim Creat Clear Calc 98.3 Estimated GFR > 60 Random Glucose 86 (60-115) mg/dL Calcium 8.9 (8.4-10.2) mg/dL Magnesium 2.1 (1.6-2.6) mg/dL Total Bilirubin 0.9 (0.0-1.0) mg/dL Direct Bilirubin 0.4 (0.0-0.5) mg/dL AST 147 H (5-31) U/L ALT 151 H (0-31) U/L Alkaline Phosphatase 51 (39-117) U/L Troponin I High Sens < 3.5 (<3.5-17.0) ng/L Total Protein 7.2 (6.5-8.0) g/dL Albumin 4.1 (3.5-5.0) g/dL Lipase 93 H (8-78) U/L Beta HCG, Quant [id number] mIU/mL Urine Color Urine Appearance Urine pH (5.0-9.0) Ur Specific [place] (1.005-1.025) Urine Protein (Neg-Trace) mg/dL Urine Glucose (UA) (Negative) mg/dL Urine Ketones (Negative) mg/dL Urine Blood (Negative) Urine Nitrite (Negative) Ur Leukocyte Esterase (Negative) Urine RBC (0-2) /HPF Urine WBC (0-5) /HPF Ur Squamous Epith Cells (0-2) /HPF Calcium Oxalate Crystal Urine Bacteria (None Seen) Hyaline Casts (0-2) /LPF COVID-19 (LU) (Negative) COVID-19 Clin Com Influenza Type A (PARUL) (Negative) Influenza Type B (PARUL) (Negative) Influenza A & B Note 07/19/22 07/19/22 07/19/22 Range/Units 15:24 15:24 15:24 WBC (4.8-10.8) X10*3/uL RBC (4.20-5.50) X10*6/uL Hgb (12.0-16.0) g/dl Hct (37.0-47.0) % MCV (80.0-98.0) fL MCH (27.0-33.0) pg MCHC (31.0-35.0) g/dl RDW (11.0-16.0) % Plt Count (160-400) X10*3/uL MPV (9.4-12.3) fL Immature Gran % (Auto) (0.0-0.4) % Neut % (Auto) (45-73) % Lymph % (Auto) (20-40) % [place] % (Auto) (2-11) % Eos % (Auto) (0-4) % Baso % (Auto) (0-2) % Lymph # (Auto) (1.2-4.9) X10*3/uL [place] # (Auto) (0.1-1.2) X10*3/uL Eos # (Auto) (0.0-0.4) X10*3/uL Baso # (Auto) (0.0-0.2) X10*3/uL Abs Immat Gran (auto) (0.00-0.03) X10*3/uL Absolute Neuts (auto) (2.0-8.3) x10*3/uL Absolute Nucleated RBC (0.0-0.012) X10*3/uL Nucleated RBC % (auto) (0.0-0.2) /100WBC PT 16.0 H (10.0-13.1) SEC INR 1.4 H (0.9-1.1) Sodium (135-145) mmol/L Potassium (3.3-5.1) mmol/L Chloride (96-108) mmol/L Carbon Dioxide (22-29) mmol/L Anion Gap (12-20) BUN (9-16) mg/dL Creatinine (0.5-1.4) mg/dL Estim Creat Clear Calc Estimated GFR Random Glucose (60-115) mg/dL Calcium (8.4-10.2) mg/dL Magnesium (1.6-2.6) mg/dL Total Bilirubin (0.0-1.0) mg/dL Direct Bilirubin (0.0-0.5) mg/dL AST (5-31) U/L ALT (0-31) U/L Alkaline Phosphatase (39-117) U/L Troponin I High Sens (<3.5-17.0) ng/L Total Protein (6.5-8.0) g/dL Albumin (3.5-5.0) g/dL Lipase (8-78) U/L Beta HCG, Quant mIU/mL Urine Color Urine Appearance Urine pH (5.0-9.0) Ur Specific [place] (1.005-1.025) Urine Protein (Neg-Trace) mg/dL Urine Glucose (UA) (Negative) mg/dL Urine Ketones (Negative) mg/dL Urine Blood (Negative) Urine Nitrite (Negative) Ur Leukocyte Esterase (Negative) Urine RBC (0-2) /HPF Urine WBC (0-5) /HPF Ur Squamous Epith Cells (0-2) /HPF Calcium Oxalate Crystal Urine Bacteria (None Seen) Hyaline Casts (0-2) /LPF COVID-19 (LU) Negative (Negative) COVID-19 Clin Com See Note Influenza Type A (PARUL) Negative (Negative) Influenza Type B (PARUL) Negative (Negative) Influenza A & B Note See Note 07/19/22 Range/Units 19:50 WBC (4.8-10.8) X10*3/uL RBC (4.20-5.50) X10*6/uL Hgb (12.0-16.0) g/dl Hct (37.0-47.0) % MCV (80.0-98.0) fL MCH (27.0-33.0) pg MCHC (31.0-35.0) g/dl RDW (11.0-16.0) % Plt Count (160-400) X10*3/uL MPV (9.4-12.3) fL Immature Gran % (Auto) (0.0-0.4) % Neut % (Auto) (45-73) % Lymph % (Auto) (20-40) % [place] % (Auto) (2-11) % Eos % (Auto) (0-4) % Baso % (Auto) (0-2) % Lymph # (Auto) (1.2-4.9) X10*3/uL [place] # (Auto) (0.1-1.2) X10*3/uL Eos # (Auto) (0.0-0.4) X10*3/uL Baso # (Auto) (0.0-0.2) X10*3/uL Abs Immat Gran (auto) (0.00-0.03) X10*3/uL Absolute Neuts (auto) (2.0-8.3) x10*3/uL Absolute Nucleated RBC (0.0-0.012) X10*3/uL Nucleated RBC % (auto) (0.0-0.2) /100WBC PT (10.0-13.1) SEC INR (0.9-1.1) Sodium (135-145) mmol/L Potassium (3.3-5.1) mmol/L Chloride (96-108) mmol/L Carbon Dioxide (22-29) mmol/L Anion Gap (12-20) BUN (9-16) mg/dL Creatinine (0.5-1.4) mg/dL Estim Creat Clear Calc Estimated GFR Random Glucose (60-115) mg/dL Calcium (8.4-10.2) mg/dL Magnesium (1.6-2.6) mg/dL Total Bilirubin (0.0-1.0) mg/dL Direct Bilirubin (0.0-0.5) mg/dL AST (5-31) U/L ALT (0-31) U/L Alkaline Phosphatase (39-117) U/L Troponin I High Sens (<3.5-17.0) ng/L Total Protein (6.5-8.0) g/dL Albumin (3.5-5.0) g/dL Lipase (8-78) U/L Beta HCG, Quant mIU/mL Urine Color Yellow Urine Appearance Cloudy Urine pH 6.0 (5.0-9.0) Ur Specific [place] 1.015 (1.005-1.025) Urine Protein Negative (Neg-Trace) mg/dL Urine Glucose (UA) Negative (Negative) mg/dL Urine Ketones 80 (Negative) mg/dL Urine Blood Negative (Negative) Urine Nitrite Negative (Negative) Ur Leukocyte Esterase Small (1+) H (Negative) Urine RBC 0-2 (0-2) /HPF Urine WBC 0-5 (0-5) /HPF Ur Squamous Epith Cells 11-20 (0-2) /HPF Calcium Oxalate Crystal Present Urine Bacteria 3+ (None Seen) Hyaline Casts 0-2 (0-2) /LPF COVID-19 (LU) (Negative) COVID-19 Clin Com Influenza Type A (PARUL) (Negative) Influenza Type B (PARUL) (Negative) Influenza A & B Note <Dilcia Renschler, PA - Last Filed: 07/19/22 18:00> Lab Results 07/19/22 07/19/22 07/19/22 Range/Units 15:24 15:24 15:24 WBC 6.0 (4.8-10.8) X10*3/uL RBC 4.25 (4.20-5.50) X10*6/uL Hgb 12.6 (12.0-16.0) g/dl Hct 35.8 L (37.0-47.0) % MCV 84.2 (80.0-98.0) fL MCH 29.6 (27.0-33.0) pg MCHC 35.2 H (31.0-35.0) g/dl RDW 11.9 (11.0-16.0) % Plt Count 240 (160-400) X10*3/uL MPV 11.0 (9.4-12.3) fL Immature Gran % (Auto) 0.2 (0.0-0.4) % Neut % (Auto) 62.5 (45-73) % Lymph % (Auto) 26.8 (20-40) % [place] % (Auto) 9.8 (2-11) % Eos % (Auto) 0.2 (0-4) % Baso % (Auto) 0.5 (0-2) % Lymph # (Auto) 1.6 (1.2-4.9) X10*3/uL [place] # (Auto) 0.6 (0.1-1.2) X10*3/uL Eos # (Auto) 0.0 (0.0-0.4) X10*3/uL Baso # (Auto) 0.0 (0.0-0.2) X10*3/uL Abs Immat Gran (auto) 0.01 (0.00-0.03) X10*3/uL Absolute Neuts (auto) 3.8 (2.0-8.3) x10*3/uL Absolute Nucleated RBC 0.000 (0.0-0.012) X10*3/uL Nucleated RBC % (auto) 0.0 (0.0-0.2) /100WBC PT (10.0-13.1) SEC INR (0.9-1.1) Sodium 131 L (135-145) mmol/L Potassium 3.7 (3.3-5.1) mmol/L Chloride 102 (96-108) mmol/L Carbon Dioxide 19 L (22-29) mmol/L Anion Gap 14 (12-20) BUN 6 L (9-16) mg/dL Creatinine 0.57 (0.5-1.4) mg/dL Estim Creat Clear Calc 98.3 Estimated GFR > 60 Random Glucose 86 (60-115) mg/dL Calcium 8.9 (8.4-10.2) mg/dL Magnesium 2.1 (1.6-2.6) mg/dL Total Bilirubin 0.9 (0.0-1.0) mg/dL Direct Bilirubin 0.4 (0.0-0.5) mg/dL AST 147 H (5-31) U/L ALT 151 H (0-31) U/L Alkaline Phosphatase 51 (39-117) U/L Troponin I High Sens < 3.5 (<3.5-17.0) ng/L Total Protein 7.2 (6.5-8.0) g/dL Albumin 4.1 (3.5-5.0) g/dL Lipase 93 H (8-78) U/L Beta HCG, Quant 063235 mIU/mL Urine Color Urine Appearance Urine pH (5.0-9.0) Ur Specific [place] (1.005-1.025) Urine Protein (Neg-Trace) mg/dL Urine Glucose (UA) (Negative) mg/dL Urine Ketones (Negative) mg/dL Urine Blood (Negative) Urine Nitrite (Negative) Ur Leukocyte Esterase (Negative) Urine RBC (0-2) /HPF Urine WBC (0-5) /HPF Ur Squamous Epith Cells (0-2) /HPF Calcium Oxalate Crystal Urine Bacteria (None Seen) Hyaline Casts (0-2) /LPF COVID-19 (LU) (Negative) COVID-19 Clin Com Influenza Type A (PARUL) (Negative) Influenza Type B (PARUL) (Negative) Influenza A & B Note 07/19/22 07/19/22 07/19/22 Range/Units 15:24 15:24 15:24 WBC (4.8-10.8) X10*3/uL RBC (4.20-5.50) X10*6/uL Hgb (12.0-16.0) g/dl Hct (37.0-47.0) % MCV (80.0-98.0) fL MCH (27.0-33.0) pg MCHC (31.0-35.0) g/dl RDW (11.0-16.0) % Plt Count (160-400) X10*3/uL MPV (9.4-12.3) fL Immature Gran % (Auto) (0.0-0.4) % Neut % (Auto) (45-73) % Lymph % (Auto) (20-40) % [place] % (Auto) (2-11) % Eos % (Auto) (0-4) % Baso % (Auto) (0-2) % Lymph # (Auto) (1.2-4.9) X10*3/uL [place] # (Auto) (0.1-1.2) X10*3/uL Eos # (Auto) (0.0-0.4) X10*3/uL Baso # (Auto) (0.0-0.2) X10*3/uL Abs Immat Gran (auto) (0.00-0.03) X10*3/uL Absolute Neuts (auto) (2.0-8.3) x10*3/uL Absolute Nucleated RBC (0.0-0.012) X10*3/uL Nucleated RBC % (auto) (0.0-0.2) /100WBC PT 16.0 H (10.0-13.1) SEC INR 1.4 H (0.9-1.1) Sodium (135-145) mmol/L Potassium (3.3-5.1) mmol/L Chloride (96-108) mmol/L Carbon Dioxide (22-29) mmol/L Anion Gap (12-20) BUN (9-16) mg/dL Creatinine (0.5-1.4) mg/dL Estim Creat Clear Calc Estimated GFR Random Glucose (60-115) mg/dL Calcium (8.4-10.2) mg/dL Magnesium (1.6-2.6) mg/dL Total Bilirubin (0.0-1.0) mg/dL Direct Bilirubin (0.0-0.5) mg/dL AST (5-31) U/L ALT (0-31) U/L Alkaline Phosphatase (39-117) U/L Troponin I High Sens (<3.5-17.0) ng/L Total Protein (6.5-8.0) g/dL Albumin (3.5-5.0) g/dL Lipase (8-78) U/L Beta HCG, Quant mIU/mL Urine Color Urine Appearance Urine pH (5.0-9.0) Ur Specific [place] (1.005-1.025) Urine Protein (Neg-Trace) mg/dL Urine Glucose (UA) (Negative) mg/dL Urine Ketones (Negative) mg/dL Urine Blood (Negative) Urine Nitrite (Negative) Ur Leukocyte Esterase (Negative) Urine RBC (0-2) /HPF Urine WBC (0-5) /HPF Ur Squamous Epith Cells (0-2) /HPF Calcium Oxalate Crystal Urine Bacteria (None Seen) Hyaline Casts (0-2) /LPF COVID-19 (LU) Negative (Negative) COVID-19 Clin Com See Note Influenza Type A (PARUL) Negative (Negative) Influenza Type B (PARUL) Negative (Negative) Influenza A & B Note See Note 07/19/22 Range/Units 19:50 WBC (4.8-10.8) X10*3/uL RBC (4.20-5.50) X10*6/uL Hgb (12.0-16.0) g/dl Hct (37.0-47.0) % MCV (80.0-98.0) fL MCH (27.0-33.0) pg MCHC (31.0-35.0) g/dl RDW (11.0-16.0) % Plt Count (160-400) X10*3/uL MPV (9.4-12.3) fL Immature Gran % (Auto) (0.0-0.4) % Neut % (Auto) (45-73) % Lymph % (Auto) (20-40) % [place] % (Auto) (2-11) % Eos % (Auto) (0-4) % Baso % (Auto) (0-2) % Lymph # (Auto) (1.2-4.9) X10*3/uL [place] # (Auto) (0.1-1.2) X10*3/uL Eos # (Auto) (0.0-0.4) X10*3/uL Baso # (Auto) (0.0-0.2) X10*3/uL Abs Immat Gran (auto) (0.00-0.03) X10*3/uL Absolute Neuts (auto) (2.0-8.3) x10*3/uL Absolute Nucleated RBC (0.0-0.012) X10*3/uL Nucleated RBC % (auto) (0.0-0.2) /100WBC PT (10.0-13.1) SEC INR (0.9-1.1) Sodium (135-145) mmol/L Potassium (3.3-5.1) mmol/L Chloride (96-108) mmol/L Carbon Dioxide (22-29) mmol/L Anion Gap (12-20) BUN (9-16) mg/dL Creatinine (0.5-1.4) mg/dL Estim Creat Clear Calc Estimated GFR Random Glucose (60-115) mg/dL Calcium (8.4-10.2) mg/dL Magnesium (1.6-2.6) mg/dL Total Bilirubin (0.0-1.0) mg/dL Direct Bilirubin (0.0-0.5) mg/dL AST (5-31) U/L ALT (0-31) U/L Alkaline Phosphatase (39-117) U/L Troponin I High Sens (<3.5-17.0) ng/L Total Protein (6.5-8.0) g/dL Albumin (3.5-5.0) g/dL Lipase (8-78) U/L Beta HCG, Quant mIU/mL Urine Color Yellow Urine Appearance Cloudy Urine pH 6.0 (5.0-9.0) Ur Specific [place] 1.015 (1.005-1.025) Urine Protein Negative (Neg-Trace) mg/dL Urine Glucose (UA) Negative (Negative) mg/dL Urine Ketones 80 (Negative) mg/dL Urine Blood Negative (Negative) Urine Nitrite Negative (Negative) Ur Leukocyte Esterase Small (1+) H (Negative) Urine RBC 0-2 (0-2) /HPF Urine WBC 0-5 (0-5) /HPF Ur Squamous Epith Cells 11-20 (0-2) /HPF Calcium Oxalate Crystal Present Urine Bacteria 3+ (None Seen) Hyaline Casts 0-2 (0-2) /LPF COVID-19 (LU) (Negative) COVID-19 Clin Com Influenza Type A (PARUL) (Negative) Influenza Type B (PARUL) (Negative) Influenza A & B Note <RAMOS Goncalves - Last Filed: 07/19/22 22:44> Independent Interpretation I performed an independent interpretation of an: EKG <RAMOS Polanco Last Filed: 07/19/22 18:00> Interpretation: Normal sinus rhythm, ventricular rate 73 beats per minute, normal NH interval, normal QTC, no previous to compare, no ST segment elevation or depressions. <RAMOS Polanco Last Filed: 07/19/22 18:00> External Record Review External record reviewed: Outpatient record and Prior outpatient labs <RAMOS Polanco - Last Filed: 07/19/22 18:00> Tests considered The following testing was considered but not selected: Pelvic ultrasound considered but not indicated given no pain or bleeding. <RAMOS Polanco Last Filed: 07/19/22 18:00> Prescription Management I considered prescription management with: Pain Medication <RAMOS Polanco Last Filed: 07/19/22 18:00> Will need to manage pain with Tylenol only. Will treat for gastritis verses GERD verses PUD with PPI and Tums. <RAMOS Polanco Last Filed: 07/19/22 18:00> Critical Care Time Critical Care Time Critical Care Time: No <RAMOS Goncalves Last Filed: 07/19/22 22:44> Discharge Plan Discharge Clinical Impression: Gastritis, , UTI (urinary tract infection), Subchorionic hemorrhage <RAMOS Weaver Last Filed: 07/19/22 15:13> Patient Disposition: Still a Patient <RAMOS Weaver Last Filed: 07/19/22 15:13> Instructions: Nausea and Vomiting in (ED), Gastritis (ED), Urinary Tract Infection in Women (ED), at 7 to 10 Weeks (ED), at 11 to 14 Weeks (ED) <RAMOS Weaver - Last Filed: 07/19/22 15:13> Additional Instructions: Follow up with FOOD QUALITY TECHNICIAN this week. Call Thursday for an appointment. Take the prescribed antacid medication each morning. Take the prescribed nausea medication as needed. You can also take TUMS for abdominal pain and burning due to reflux. Get these at any pharmacy Stick to a bland diet - no spicy or acidic foods. If you develop new or worsening symptoms call 911 or come back to the ER for further evaluation. Return if you were bleeding through more than 2 pads per hour or having heavy vaginal bleeding or discharge or abdominal pain. Seguimiento con obstetra/ginec?logo esta semana. Llame el lunes para awilda constantino. [place] el medicamento anti?cido recetado todas las ma?anas. [place] el medicamento recetado para las n?useas seg?n sea necesario. Tambi?n puede emigdio TUMS para el dolor abdominal y el ardor por reflujo. Cons?guelos en cualquier farmacia Siga awilda dieta blanda, sin comidas picantes o ?cidas. Si desarrolla s?ntomas nuevos o que empeoran, llame al 911 o regrese a la gil de emergencias para awilda evaluaci?n adicional. Regrese si estaba sangrando a adelina?s de m?s de 2 toallas higi?nicas por hora o si ten?a sangrado o flujo vaginal intenso o dolor abdominal. US/US OB <= 14 weeks fetus IMPRESSION: Single live intrauterine . 9 weeks 1 day by ultrasound criteria. 2 fluid collections are identified by the iap displays analyst may represent areas of subchorionic hemorrhage The gallbladder appears abnormal. Multiple filling defects with some shadowing would suggest gallstones. Given the overall appearance tumefactive sludge would be a consideration. Polyp formation cannot be excluded. No convincing evidence for gallbladder wall edema. There is no ductal dilatation <RAMOS Weaver - Last Filed: 07/19/22 15:13> Prescriptions: New pantoprazole [Protonix] 40 mg tablet,delayed release (DR/EC) 40 mg PO DAILY Qty: 30 0RF ondansetron 4 mg tablet,disintegrating 4 mg PO Q8H PRN (Reason: nausea and vomiting) Qty: 10 0RF cephalexin 500 mg tablet 500 mg PO Q6H 7 Days Qty: 28 0RF prenat.vits,jayesh,wex-wooa-xhuvg Tablet 1 tab PO DAILY Qty: 30 0RF No Action metoclopramide HCl [Reglan] 10 mg tablet 10 mg PO Q6H PRN (Reason: nausea and vomiting) Qty: 10 0RF <RAMOS Weaver - Last Filed: 07/19/22 15:13> Referrals: Cain Combs MD [Physician] - <RAMOS Weaver - Last Filed: 07/19/22 15:13> Stand Alone Forms: Work/School Release <RAMOS Weaver - Last Filed: 07/19/22 15:13> Print Language: Slovenian <RAMOS Weaver - Last Filed: 07/19/22 15:13>
--- NOTE | 2022-07-19 15:11 | ECG_ITS ---
Test Reason : CP Blood Pressure : / mmHG Vent. Rate : 073 BPM Atrial Rate : 073 BPM P-R Int : 124 ms QRS Dur : 088 ms QT Int : 364 ms P-R-T Axes : 052 024 015 degrees QTc Int : 401 ms Normal sinus rhythm Incomplete RBBB Normal ECG No previous ECGs available Referred By: Yessica Leigh Electronically Signed By:Scott Schafer
[2022-07-19 15:30] LABS: MANUAL DIFF FLAG NO
[2022-07-19 15:31] LABS: Basophils Percent Auto 0.5 % (0-2); Eosinophils Percent Auto 0.2 % (0-4); Hematocrit 35.8 % (37.0-47.0); Hemoglobin 12.6 g/dl (12.0-16.0); Imm Gran Abs Auto 0.01 X10*3/uL (0.00-0.03); Imm Gran Pct Auto 0.2 % (0.0-0.4); Lymphocytes Absolute Auto 1.6 X10*3/uL (1.2-4.9); Lymphocytes Percent Auto 26.8 % (20-40); Mean Corpuscular HGB Conc 35.2 g/dl (31.0-35.0); Mean Corpuscular Hemoglobin 29.6 pg (27.0-33.0); Mean Corpuscular Volume 84.2 fL (80.0-98.0); Monocytes Absolute Auto 0.6 X10*3/uL (0.1-1.2); Monocytes Percent Auto 9.8 % (2-11); Neutrophils Absolute Auto 3.8 x10*3/uL (2.0-8.3); Neutrophils Percent Auto 62.5 % (45-73); Platelet Count 240 X10*3/uL (160-400); Red Blood Count 4.25 X10*6/uL (4.20-5.50); Red Cell Distribution Width 11.9 % (11.0-16.0)
[2022-07-19 15:36] LABS: INTERNATIONAL NORM RATIO 1.4 (0.9-1.1)
--- NOTE | 2022-07-19 15:36 | PC.NURSE ---
Patient primarily Danish speaking reports 3 days of bloody vomiting reports adela blood small amounts. AOx 4 neuros intact abdomen soft tender no guarding noted abd pain epigastric. IV access obtained fluids started will CTM
[2022-07-19] MEDS: 0.9 % Sodium Chloride 1,000 ML 999 ML IV ×2 (15:38→22:57)
--- NOTE | 2022-07-19 15:43 | PC.NURSE ---
Patient tolerating IVF algorithm design engineer called will AYLIN
[2022-07-19 15:50] LABS: COVID-19 Test Negative (Negative); IDNOW Serial# 16C4AD1C
[2022-07-19 15:56] LABS: Alanine Aminotransferase 151 U/L (0-31); Albumin Level 4.1 g/dL (3.5-5.0); Alkaline Phosphatase 51 U/L (39-117); Anion Gap 14 (12-20); Aspartate Amino Transferase 147 U/L (5-31); Bilirubin Direct 0.4 mg/dL (0.0-0.5); Bilirubin Total 0.9 mg/dL (0.0-1.0); Blood Urea Nitrogen 6 mg/dL (9-16); Calcium 8.9 mg/dL (8.4-10.2); Carbon Dioxide 19 mmol/L (22-29); Chloride 102 mmol/L (96-108); Creatinine Clr Calc Pharmacy 98.3; Estimated Glomerular Filt Rate > 60; Glucose Random 86 mg/dL (60-115); Lipase 93 U/L (8-78); Magnesium 2.1 mg/dL (1.6-2.6); Potassium 3.7 mmol/L (3.3-5.1); Sodium 131 mmol/L (135-145); Total Protein 7.2 g/dL (6.5-8.0)
[2022-07-19 15:59] LABS: IDNOW Serial# BCCEAD1C; Influenza A Negative (Negative); Influenza B2 Negative (Negative)
[2022-07-19 16:18] LABS: Troponin-I High Sensitivity < 3.5 ng/L (<3.5-17.0)
[2022-07-19] MEDS: Ondansetron ODT 4 MG TAB.RAPDIS TRANSLINGU (16:20)
[2022-07-19] MEDS: Omeprazole 40 MG CAPSULE.DR PO (16:20)
[2022-07-19] MEDS: Calcium Carbonate 750 MG TAB.CHEW 1500 MG PO (16:20)
--- NOTE | 2022-07-19 18:19 | PC.NURSE ---
Patient resting comfortably no nausea vomiting noted AOx 4 tolerated IVF will CTM
--- NOTE | 2022-07-19 18:23 | PC.NURSE ---
Bedside ultrasound being performed will CTM
[2022-07-19 18:32] VITALS: BP 97/58; PULSE 62; RESP 18; O2SAT 96
[2022-07-19 19:56] LABS: Appearance Urine Cloudy; Color Urine Yellow; Glucose Urine UA Negative (Negative); Leukocyte Esterase Urine Small (1+) (Negative); Nitrite Urine Negative (Negative); Specific Gravity - Urine 1.015 (1.005-1.025); UMIC TRIGGER UACC YES; Urine Blood Negative (Negative); Urine Ketones 80 mg/dL (Negative); Urine Protein Negative (Neg-Trace)
[2022-07-19 20:06] LABS: Bacteria Urine 3+ (None Seen); Calcium Oxalate Crystals Urine Present; Hyaline Casts Urine 0-2 /LPF (0-2); RBC Urine 0-2 /HPF (0-2); UACC Culture Trigger YES; WBC Urine 0-5 /HPF (0-5)
[2022-07-19 20:27] VITALS: BP 104/61; PULSE 70; RESP 16; TEMP 36.7; O2SAT 98
[2022-07-19] MEDS: Acetaminophen 325 MG TABLET 650 MG PO (22:56)
--- NOTE | 2022-07-19 22:57 | PC.NURSE ---
Assumed care of pt. at 1900. At this time, pt in room, lying in bed, respirations even and unlabored. Pt. just given saltines and water for PO challenge.
[2022-07-19 23:11] VITALS: BP 103/57; PULSE 55; RESP 17; TEMP 37; O2SAT 99
[2022-07-19 23:15] LABS: Alanine Aminotransferase 122 U/L (0-31); Albumin Level 3.7 g/dL (3.5-5.0); Alkaline Phosphatase 45 U/L (39-117); Anion Gap 10 (12-20); Aspartate Amino Transferase 70 U/L (5-31); Bilirubin Total 0.9 mg/dL (0.0-1.0); Blood Urea Nitrogen 4 mg/dL (9-16); Calcium 8.6 mg/dL (8.4-10.2); Carbon Dioxide 20 mmol/L (22-29); Chloride 106 mmol/L (96-108); Creatinine Clr Calc Pharmacy 116.6; Estimated Glomerular Filt Rate > 60; Glucose Random 73 mg/dL (60-115); Potassium 3.3 mmol/L (3.3-5.1); Sodium 133 mmol/L (135-145); Total Protein 6.2 g/dL (6.5-8.0)
== END 2022-07-20 | disposition home or self-care (01) ==
PROVIDERS: Physician Assistant; Emergency Provider Emergency Medicine
DX: O23.41 Unspecified infection of urinary tract in pregnancy, first trimester (principal); N39.0 Urinary tract infection, site not specified; B96.89 Other specified bacterial agents as the cause of diseases classified elsewhere; O99.611 Diseases of the digestive system complicating pregnancy, first trimester; K29.70 Gastritis, unspecified, without bleeding; O43.91 Unspecified placental disorder, first trimester; Z3A.09 9 weeks gestation of pregnancy; Z20.822 Contact with and (suspected) exposure to COVID-19
CPT/HCPCS: 36415; 76705; 76801; 80048; 80053; 80076; 81001; 81003; 83690; 83735; 84484; 84702; 85025; 85610; 87086; 87502; 87635; 93005; 96360; 99284; 99285

== ENCOUNTER 2022-08-06 19:14 | Emergency (ER) | payer MEDICAID, OTHER, SELFPAY ==
[2022-08-06 19:56] VITALS: BP 112/63; PULSE 63; RESP 16; TEMP 36.7; O2SAT 99; BMI 19.3
--- NOTE | 2022-08-06 19:56 | ED.ABDPAIN ---
HPI - Abdominal Pain General Chief Complaint: Nausea/Vomiting/Diarrhea <Emmy Santana NP - Last Filed: 08/06/22 20:02> Stated Complaint: vomiting,abd pain <Emmy Santana NP - Last Filed: 08/06/22 20:02> Time Seen by Provider: 08/06/22 23:02 <Emmy Santana NP - Last Filed: 08/06/22 20:02> Source: patient <RAMOS Goncalves - Last Filed: 08/07/22 02:36> Mode of arrival: ambulatory <RAMOS Goncalves Last Filed: 08/07/22 02:36> Limitations: no limitations <RAMOS Goncalves Last Filed: 08/07/22 02:36> History of Present Illness HPI narrative: This is a 26-year-old female with no significant medical history presenting to the emergency department with diffuse abdominal pain, nausea, vomiting, acid reflux for the past 2 days worsening. Patient tells me that she is currently around 11 weeks , she has not been followed by OBGYN, she tells me she got an ultrasound here 2 weeks ago that showed that she was and she had a small chorionic hemorrhage present. Patient tells me she is scheduled see OBGYN on August 20 in an office out of [place]. Reports decreased PO intake. Patient denies fevers, chills, vaginal bleeding, vaginal discharge, chest pain, shortness of breath, headache, vision changes, weakness. <RAMOS Goncalves Last Filed: 08/07/22 02:36> Related Data Home Medications: Previous Rx's Medication Instructions Recorded metoclopramide HCl 10 mg tablet 10 mg PO Q6H PRN nausea and 07/11/22 (Reglan) vomiting #10 tabs cephalexin 500 mg tablet 500 mg PO Q6H 7 days #28 tabs 07/19/22 ondansetron 4 mg disintegrating 4 mg PO Q8H PRN nausea and 07/19/22 tablet vomiting #10 tabs pantoprazole 40 mg tablet,delayed 40 mg PO DAILY #30 tabs 07/19/22 release (Protonix) prenat.vits,jayesh,jrs-avux-guvbo 1 tab PO DAILY #30 tabs 07/19/22 cimetidine 800 mg tablet 800 mg PO BID #60 tabs 08/07/22 promethazine 25 mg tablet 25 mg PO Q6H PRN nausea and 08/07/22 vomiting #14 tabs pyridoxine (vitamin B6) 25 mg 25 mg PO TID PRN nausea and 08/07/22 tablet vomiting #30 tabs <Emmy Santana NP - Last Filed: 08/06/22 20:02> Allergies/Adverse Reactions: Allergies Allergy/AdvReac Type Severity Reaction Status Date / Time No Known Allergies Allergy Verified 07/11/22 09:31 <Emmy Santana NP - Last Filed: 08/06/22 20:02> Review of Systems Review of Systems Constitutional : No Weight loss, No Fever, No Chills, + Fatigue, + Malaise ENT/Mouth : No sore throat, No Rhinorrhea Eyes: No Eye Pain, No Swelling, No Redness Cardiovascular : No Chest Pain, No SOB, No Dyspnea on Exertion, No Orthopnea, No Edema, No Palpitations Respiratory : No Cough, No Sputum, No Wheezing Gastrointestinal : + Nausea, + Vomiting, No Diarrhea, No Constipation, + abdominal Pain, No Hematochezia, No Melena Genitourinary : No Dysuria, No Urinary Frequency, No Hematuria, Musculoskeletal : No joint pain, No Myalgias, No Joint Swelling Skin : No Skin Lesions, No rash Neuro : No Weakness, No Numbness, No Dizziness, No Headache Psych : No Anxiety/Panic, No Depression All other systems reviewed and are negative <RAMOS Goncalves - Last Filed: 08/07/22 02:36> Yes all other systems are reviewed and are negative <RAMOS Goncalves - Last Filed: 08/07/22 02:36> [facility] Social History Social History: Social History Alcohol intake: unknown Advance Directives: No Advance Directives Information Provided: Yes <Emmy Santana NP - Last Filed: 08/06/22 20:02> Physical Exam ED Vital Signs: Vital Signs - 24 hr 08/06/22 19:56 08/06/22 23:16 08/07/22 01:08 Temperature 98.0 F 98.5 F 98.0 F Pulse Rate 63 61 60 Respiratory Rate 16 17 18 Blood Pressure 112/63 114/65 112/68 Pulse Oximetry 99 100 100 Oxygen Delivery Method Room Air Room Air Room Air 08/07/22 06:10 Temperature 98.3 F Pulse Rate 68 Respiratory Rate 17 Blood Pressure 106/62 Pulse Oximetry 98 Oxygen Delivery Method Room Air BMI result Body Mass Index 19.3 <Emmy Santana NP - Last Filed: 08/06/22 20:02> Vital Signs - 24 hr 08/06/22 19:56 08/06/22 23:16 08/07/22 01:08 Temperature 98.0 F 98.5 F 98.0 F Pulse Rate 63 61 60 Respiratory Rate 16 17 18 Blood Pressure 112/63 114/65 112/68 Pulse Oximetry 99 100 100 Oxygen Delivery Method Room Air Room Air Room Air 08/07/22 06:10 Temperature 98.3 F Pulse Rate 68 Respiratory Rate 17 Blood Pressure 106/62 Pulse Oximetry 98 Oxygen Delivery Method Room Air BMI result Body Mass Index 19.3 <RAMOS Goncalves - Last Filed: 08/07/22 02:36> Vital Signs - 24 hr 08/06/22 19:56 08/06/22 23:16 08/07/22 01:08 Temperature 98.0 F 98.5 F 98.0 F Pulse Rate 63 61 60 Respiratory Rate 16 17 18 Blood Pressure 112/63 114/65 112/68 Pulse Oximetry 99 100 100 Oxygen Delivery Method Room Air Room Air Room Air 08/07/22 06:10 Temperature 98.3 F Pulse Rate 68 Respiratory Rate 17 Blood Pressure 106/62 Pulse Oximetry 98 Oxygen Delivery Method Room Air BMI result Body Mass Index 19.3 <Harpal Ortega MD - Last Filed: 08/07/22 06:39> Course Course Course Narrative: This is a rapid medical exam. Deferred additional HPI, ROS, PE to primary provider. 26 yo female currently 11 weeks (last US 07/19 which showed single live intrauterine with subchorionic hemorrhage seen) here with complaints of upper abdominal pain/vomiting. NO vag bleeding. Will obtain labs, UA, covid screen. VSS <Emmy Santana NP - Last Filed: 08/06/22 20:02> Reevaluation(s) Reevaluation #1: CBC appears to have a normocytic anemia hemoglobin 11.4, hematocrit 32.8 likely secondary to /normal variation, chemistry with no acute findings requiring intervention. Lipase normal. Beta hCG 51,069. COVID negative. <RAMOS Goncalves - Last Filed: 08/07/22 02:36> Time: 23:43 <RAMOS Goncalves - Last Filed: 08/07/22 02:36> Reevaluation #2: Patient reports symptomatic improvement. Urine is still pending. Sign-out given to Dr. Ortega pending UA and reevaluation. I suspect patient can be discharged home. <RAMOS Goncalves - Last Filed: 08/07/22 02:36> Time: 02:36 <RAMOS Goncalves - Last Filed: 08/07/22 02:36> Reevaluation #3: The patient is feeling significantly better. She has been able to drink some fluid. She states that her nausea has improved but is still present therefore she was given a Phenergan suppository 25 mg. And I will prescribe this medication for. She is also complaining of heartburn like symptoms. Patient's urinalysis revealed 1+ protein and trace leukocyte esterase otherwise was unremarkable. The patient states she is currently taking an antibiotic for urinary tract infection which was prescribed here from the emergency department. Patient had a urine culture from 07/19/2022 which only grew lactobacillus and was not consistent with urinary tract infection. Patient will be discharged home with prescriptions for Phenergan and cimetidine. She was also advised to stay on a brat diet for the next 2-3 days. <Harpal Ortega MD - Last Filed: 08/07/22 06:39> Time: 06:30 <Harpal Ortega MD - Last Filed: 08/07/22 06:39> Medical Decision Making Medical Decision Making [facility] Narrative: 0000 26-year-old female currently around 11 weeks without care presents with nausea, vomiting, abdominal pain. Physical examination with mild diffusely tender abdomen. Normoactive bowel sounds. Vital signs stable. Remainder of exam unremarkable. History and physical examination concerning for viral illness or nausea and vomiting related to . I do not suspect acute abdomen, appendicitis, cholecystitis, diverticulitis or pancreatitis. Patient also likely having GERD. Plan at this time is paroxetine and fluid hydration. Will also give Maalox. <RAMOS Goncalves - Last Filed: 08/07/22 02:36> Differential Diagnosis Differential Diagnoses: The differential diagnosis associated with the presentation includes <RAMOS Goncalves - Last Filed: 08/07/22 02:36> History and physical examination concerning for viral illness or nausea and vomiting related to . I do not suspect acute abdomen, appendicitis, cholecystitis, diverticulitis or pancreatitis. Patient also likely having GERD. <RAMOS Goncalves - Last Filed: 08/07/22 02:36> Admission/Observation Consideration of admission/observation: Escalation of care including admission/observation considered <RAMOS Goncalves - Last Filed: 08/07/22 02:36> Lab Data MDM Lab Attestation statement: I reviewed the patient's lab results. <RAMOS Goncalves - Last Filed: 08/07/22 02:36> Result Diagrams: 08/06/22 21:43 08/06/22 21:43 <Emmy Santana NP - Last Filed: 08/06/22 20:02> Labs: Lab Results 08/06/22 08/06/22 08/06/22 Range/Units 21:41 21:43 21:43 WBC 7.0 (4.8-10.8) X10*3/uL RBC 3.79 L (4.20-5.50) X10*6/uL Hgb 11.4 L (12.0-16.0) g/dl Hct 32.8 L (37.0-47.0) % MCV 86.5 (80.0-98.0) fL MCH 30.1 (27.0-33.0) pg MCHC 34.8 (31.0-35.0) g/dl RDW 12.8 (11.0-16.0) % Plt Count 355 D (160-400) X10*3/uL MPV 10.0 (9.4-12.3) fL Immature Gran % (Auto) 0.3 (0.0-0.4) % Neut % (Auto) 81.2 H (45-73) % Lymph % (Auto) 15.4 L (20-40) % [place] % (Auto) 3.0 (2-11) % Eos % (Auto) 0.0 (0-4) % Baso % (Auto) 0.1 (0-2) % Lymph # (Auto) 1.1 L (1.2-4.9) X10*3/uL [place] # (Auto) 0.2 (0.1-1.2) X10*3/uL Eos # (Auto) 0.0 (0.0-0.4) X10*3/uL Baso # (Auto) 0.0 (0.0-0.2) X10*3/uL Abs Immat Gran (auto) 0.02 (0.00-0.03) X10*3/uL Absolute Neuts (auto) 5.6 (2.0-8.3) x10*3/uL Absolute Nucleated RBC 0.000 (0.0-0.012) X10*3/uL Nucleated RBC % (auto) 0.0 (0.0-0.2) /100WBC Sodium 135 (135-145) mmol/L Potassium 3.3 (3.3-5.1) mmol/L Chloride 106 (96-108) mmol/L Carbon Dioxide 19 L (22-29) mmol/L Anion Gap 13 (12-20) BUN 5 L (9-16) mg/dL Creatinine 0.51 (0.5-1.4) mg/dL Estim Creat Clear Calc 120.3 Estimated GFR > 60 Random Glucose 96 (60-115) mg/dL Calcium 9.3 D (8.4-10.2) mg/dL Total Bilirubin 0.8 (0.0-1.0) mg/dL Direct Bilirubin 0.3 (0.0-0.5) mg/dL AST 19 (5-31) U/L ALT 59 H (0-31) U/L Alkaline Phosphatase 97 (39-117) U/L Troponin I High Sens (<3.5-17.0) ng/L Total Protein 7.1 (6.5-8.0) g/dL Albumin 4.0 (3.5-5.0) g/dL Lipase 12 (8-78) U/L Beta HCG, Quant 52675 mIU/mL COVID-19 (LU) Negative (Negative) COVID-19 Clin Com See Note 08/07/22 Range/Units 02:30 WBC (4.8-10.8) X10*3/uL RBC (4.20-5.50) X10*6/uL Hgb (12.0-16.0) g/dl Hct (37.0-47.0) % MCV (80.0-98.0) fL MCH (27.0-33.0) pg MCHC (31.0-35.0) g/dl RDW (11.0-16.0) % Plt Count (160-400) X10*3/uL MPV (9.4-12.3) fL Immature Gran % (Auto) (0.0-0.4) % Neut % (Auto) (45-73) % Lymph % (Auto) (20-40) % [place] % (Auto) (2-11) % Eos % (Auto) (0-4) % Baso % (Auto) (0-2) % Lymph # (Auto) (1.2-4.9) X10*3/uL [place] # (Auto) (0.1-1.2) X10*3/uL Eos # (Auto) (0.0-0.4) X10*3/uL Baso # (Auto) (0.0-0.2) X10*3/uL Abs Immat Gran (auto) (0.00-0.03) X10*3/uL Absolute Neuts (auto) (2.0-8.3) x10*3/uL Absolute Nucleated RBC (0.0-0.012) X10*3/uL Nucleated RBC % (auto) (0.0-0.2) /100WBC Sodium (135-145) mmol/L Potassium (3.3-5.1) mmol/L Chloride (96-108) mmol/L Carbon Dioxide (22-29) mmol/L Anion Gap (12-20) BUN (9-16) mg/dL Creatinine (0.5-1.4) mg/dL Estim Creat Clear Calc Estimated GFR Random Glucose (60-115) mg/dL Calcium (8.4-10.2) mg/dL Total Bilirubin (0.0-1.0) mg/dL Direct Bilirubin (0.0-0.5) mg/dL AST (5-31) U/L ALT (0-31) U/L Alkaline Phosphatase (39-117) U/L Troponin I High Sens < 3.5 (<3.5-17.0) ng/L Total Protein (6.5-8.0) g/dL Albumin (3.5-5.0) g/dL Lipase (8-78) U/L Beta HCG, Quant mIU/mL COVID-19 (LU) (Negative) COVID-19 Clin Com <Emmy Santana HULL SORTER - Last Filed: 08/06/22 20:02> Lab Results 08/06/22 08/06/22 08/06/22 Range/Units 21:41 21:43 21:43 WBC 7.0 (4.8-10.8) X10*3/uL RBC 3.79 L (4.20-5.50) X10*6/uL Hgb 11.4 L (12.0-16.0) g/dl Hct 32.8 L (37.0-47.0) % MCV 86.5 (80.0-98.0) fL MCH 30.1 (27.0-33.0) pg MCHC 34.8 (31.0-35.0) g/dl RDW 12.8 (11.0-16.0) % Plt Count 355 D (160-400) X10*3/uL MPV 10.0 (9.4-12.3) fL Immature Gran % (Auto) 0.3 (0.0-0.4) % Neut % (Auto) 81.2 H (45-73) % Lymph % (Auto) 15.4 L (20-40) % [place] % (Auto) 3.0 (2-11) % Eos % (Auto) 0.0 (0-4) % Baso % (Auto) 0.1 (0-2) % Lymph # (Auto) 1.1 L (1.2-4.9) X10*3/uL [place] # (Auto) 0.2 (0.1-1.2) X10*3/uL Eos # (Auto) 0.0 (0.0-0.4) X10*3/uL Baso # (Auto) 0.0 (0.0-0.2) X10*3/uL Abs Immat Gran (auto) 0.02 (0.00-0.03) X10*3/uL Absolute Neuts (auto) 5.6 (2.0-8.3) x10*3/uL Absolute Nucleated RBC 0.000 (0.0-0.012) X10*3/uL Nucleated RBC % (auto) 0.0 (0.0-0.2) /100WBC Sodium 135 (135-145) mmol/L Potassium 3.3 (3.3-5.1) mmol/L Chloride 106 (96-108) mmol/L Carbon Dioxide 19 L (22-29) mmol/L Anion Gap 13 (12-20) BUN 5 L (9-16) mg/dL Creatinine 0.51 (0.5-1.4) mg/dL Estim Creat Clear Calc 120.3 Estimated GFR > 60 Random Glucose 96 (60-115) mg/dL Calcium 9.3 D (8.4-10.2) mg/dL Total Bilirubin 0.8 (0.0-1.0) mg/dL Direct Bilirubin 0.3 (0.0-0.5) mg/dL AST 19 (5-31) U/L ALT 59 H (0-31) U/L Alkaline Phosphatase 97 (39-117) U/L Troponin I High Sens (<3.5-17.0) ng/L Total Protein 7.1 (6.5-8.0) g/dL Albumin 4.0 (3.5-5.0) g/dL Lipase 12 (8-78) U/L Beta HCG, Quant 15317 mIU/mL COVID-19 (LU) Negative (Negative) COVID-19 Clin Com See Note 08/07/22 Range/Units 02:30 WBC (4.8-10.8) X10*3/uL RBC (4.20-5.50) X10*6/uL Hgb (12.0-16.0) g/dl Hct (37.0-47.0) % MCV (80.0-98.0) fL MCH (27.0-33.0) pg MCHC (31.0-35.0) g/dl RDW (11.0-16.0) % Plt Count (160-400) X10*3/uL MPV (9.4-12.3) fL Immature Gran % (Auto) (0.0-0.4) % Neut % (Auto) (45-73) % Lymph % (Auto) (20-40) % [place] % (Auto) (2-11) % Eos % (Auto) (0-4) % Baso % (Auto) (0-2) % Lymph # (Auto) (1.2-4.9) X10*3/uL [place] # (Auto) (0.1-1.2) X10*3/uL Eos # (Auto) (0.0-0.4) X10*3/uL Baso # (Auto) (0.0-0.2) X10*3/uL Abs Immat Gran (auto) (0.00-0.03) X10*3/uL Absolute Neuts (auto) (2.0-8.3) x10*3/uL Absolute Nucleated RBC (0.0-0.012) X10*3/uL Nucleated RBC % (auto) (0.0-0.2) /100WBC Sodium (135-145) mmol/L Potassium (3.3-5.1) mmol/L Chloride (96-108) mmol/L Carbon Dioxide (22-29) mmol/L Anion Gap (12-20) BUN (9-16) mg/dL Creatinine (0.5-1.4) mg/dL Estim Creat Clear Calc Estimated GFR Random Glucose (60-115) mg/dL Calcium (8.4-10.2) mg/dL Total Bilirubin (0.0-1.0) mg/dL Direct Bilirubin (0.0-0.5) mg/dL AST (5-31) U/L ALT (0-31) U/L Alkaline Phosphatase (39-117) U/L Troponin I High Sens < 3.5 (<3.5-17.0) ng/L Total Protein (6.5-8.0) g/dL Albumin (3.5-5.0) g/dL Lipase (8-78) U/L Beta HCG, Quant mIU/mL COVID-19 (LU) (Negative) COVID-19 Clin Com <RAMOS Goncalves - Last Filed: 08/07/22 02:36> Lab Results 08/06/22 08/06/22 08/06/22 Range/Units 21:41 21:43 21:43 WBC 7.0 (4.8-10.8) X10*3/uL RBC 3.79 L (4.20-5.50) X10*6/uL Hgb 11.4 L (12.0-16.0) g/dl Hct 32.8 L (37.0-47.0) % MCV 86.5 (80.0-98.0) fL MCH 30.1 (27.0-33.0) pg MCHC 34.8 (31.0-35.0) g/dl RDW 12.8 (11.0-16.0) % Plt Count 355 D (160-400) X10*3/uL MPV 10.0 (9.4-12.3) fL Immature Gran % (Auto) 0.3 (0.0-0.4) % Neut % (Auto) 81.2 H (45-73) % Lymph % (Auto) 15.4 L (20-40) % [place] % (Auto) 3.0 (2-11) % Eos % (Auto) 0.0 (0-4) % Baso % (Auto) 0.1 (0-2) % Lymph # (Auto) 1.1 L (1.2-4.9) X10*3/uL [place] # (Auto) 0.2 (0.1-1.2) X10*3/uL Eos # (Auto) 0.0 (0.0-0.4) X10*3/uL Baso # (Auto) 0.0 (0.0-0.2) X10*3/uL Abs Immat Gran (auto) 0.02 (0.00-0.03) X10*3/uL Absolute Neuts (auto) 5.6 (2.0-8.3) x10*3/uL Absolute Nucleated RBC 0.000 (0.0-0.012) X10*3/uL Nucleated RBC % (auto) 0.0 (0.0-0.2) /100WBC Sodium 135 (135-145) mmol/L Potassium 3.3 (3.3-5.1) mmol/L Chloride 106 (96-108) mmol/L Carbon Dioxide 19 L (22-29) mmol/L Anion Gap 13 (12-20) BUN 5 L (9-16) mg/dL Creatinine 0.51 (0.5-1.4) mg/dL Estim Creat Clear Calc 120.3 Estimated GFR > 60 Random Glucose 96 (60-115) mg/dL Calcium 9.3 D (8.4-10.2) mg/dL Total Bilirubin 0.8 (0.0-1.0) mg/dL Direct Bilirubin 0.3 (0.0-0.5) mg/dL AST 19 (5-31) U/L ALT 59 H (0-31) U/L Alkaline Phosphatase 97 (39-117) U/L Troponin I High Sens (<3.5-17.0) ng/L Total Protein 7.1 (6.5-8.0) g/dL Albumin 4.0 (3.5-5.0) g/dL Lipase 12 (8-78) U/L Beta HCG, Quant 41400 mIU/mL COVID-19 (LU) Negative (Negative) COVID-19 Clin Com See Note 08/07/22 Range/Units 02:30 WBC (4.8-10.8) X10*3/uL RBC (4.20-5.50) X10*6/uL Hgb (12.0-16.0) g/dl Hct (37.0-47.0) % MCV (80.0-98.0) fL MCH (27.0-33.0) pg MCHC (31.0-35.0) g/dl RDW (11.0-16.0) % Plt Count (160-400) X10*3/uL MPV (9.4-12.3) fL Immature Gran % (Auto) (0.0-0.4) % Neut % (Auto) (45-73) % Lymph % (Auto) (20-40) % [place] % (Auto) (2-11) % Eos % (Auto) (0-4) % Baso % (Auto) (0-2) % Lymph # (Auto) (1.2-4.9) X10*3/uL [place] # (Auto) (0.1-1.2) X10*3/uL Eos # (Auto) (0.0-0.4) X10*3/uL Baso # (Auto) (0.0-0.2) X10*3/uL Abs Immat Gran (auto) (0.00-0.03) X10*3/uL Absolute Neuts (auto) (2.0-8.3) x10*3/uL Absolute Nucleated RBC (0.0-0.012) X10*3/uL Nucleated RBC % (auto) (0.0-0.2) /100WBC Sodium (135-145) mmol/L Potassium (3.3-5.1) mmol/L Chloride (96-108) mmol/L Carbon Dioxide (22-29) mmol/L Anion Gap (12-20) BUN (9-16) mg/dL Creatinine (0.5-1.4) mg/dL Estim Creat Clear Calc Estimated GFR Random Glucose (60-115) mg/dL Calcium (8.4-10.2) mg/dL Total Bilirubin (0.0-1.0) mg/dL Direct Bilirubin (0.0-0.5) mg/dL AST (5-31) U/L ALT (0-31) U/L Alkaline Phosphatase (39-117) U/L Troponin I High Sens < 3.5 (<3.5-17.0) ng/L Total Protein (6.5-8.0) g/dL Albumin (3.5-5.0) g/dL Lipase (8-78) U/L Beta HCG, Quant mIU/mL COVID-19 (LU) (Negative) COVID-19 Clin Com <Harpal Ortega MD - Last Filed: 08/07/22 06:39> Core Measures AMI core measures followed: Yes <RAMOS Goncalves - Last Filed: 08/07/22 02:36> Measure exclusions: not indicated <RAMOS Goncalves - Last Filed: 08/07/22 02:36> Medications Administered Discontinued Medications Generic Name Dose Route Start Last Admin Trade Name Divya PRN Reason Stop Dose Admin Al Hydroxide/Mg Hydroxide 30 ml 08/07/22 01:11 08/07/22 01:39 Magnesium Hydrox/Alum Hydrox 30 Ml Oral.Susp PO 08/07/22 01:12 30 ml ONCE ONE Administration Diphenhydramine HCl 25 mg 08/07/22 01:25 08/07/22 01:42 Diphenhydramine Hcl 50 Mg/Ml Vial IVPUSH 08/07/22 01:26 25 mg ONCE ONE Administration Sodium Chloride 1,000 mls @ 999 mls/hr 08/07/22 00:45 08/07/22 02:06 Ns IV 08/07/22 01:45 Infused .Q1H1M ALLAN Infusion Metoclopramide HCl 10 mg 08/07/22 01:25 08/07/22 01:43 Metoclopramide Hcl 10 Mg/2 Ml Vial IVPUSH 08/07/22 01:26 10 mg ONCE ONE Administration Pyridoxine HCl 25 mg 08/07/22 00:38 08/07/22 01:39 Pyridoxine Hcl (Vitamin B6) 50 Mg Tablet PO 08/07/22 00:39 25 mg ONCE ONE Administration <Emmy Santana NP - Last Filed: 08/06/22 20:02> Medications Administered Discontinued Medications Generic Name Dose Route Start Last Admin Trade Name Divya PRN Reason Stop Dose Admin Al Hydroxide/Mg Hydroxide 30 ml 08/07/22 01:11 08/07/22 01:39 Magnesium Hydrox/Alum Hydrox 30 Ml Oral.Susp PO 08/07/22 01:12 30 ml ONCE ONE Administration Diphenhydramine HCl 25 mg 08/07/22 01:25 08/07/22 01:42 Diphenhydramine Hcl 50 Mg/Ml Vial IVPUSH 08/07/22 01:26 25 mg ONCE ONE Administration Sodium Chloride 1,000 mls @ 999 mls/hr 08/07/22 00:45 08/07/22 02:06 Ns IV 08/07/22 01:45 Infused .Q1H1M ALLAN Infusion Metoclopramide HCl 10 mg 08/07/22 01:25 08/07/22 01:43 Metoclopramide Hcl 10 Mg/2 Ml Vial IVPUSH 08/07/22 01:26 10 mg ONCE ONE Administration Pyridoxine HCl 25 mg 08/07/22 00:38 08/07/22 01:39 Pyridoxine Hcl (Vitamin B6) 50 Mg Tablet PO 08/07/22 00:39 25 mg ONCE ONE Administration <RAMOS Goncalves - Last Filed: 08/07/22 02:36> Medications Administered Discontinued Medications Generic Name Dose Route Start Last Admin Trade Name Divya PRN Reason Stop Dose Admin Al Hydroxide/Mg Hydroxide 30 ml 08/07/22 01:11 08/07/22 01:39 Magnesium Hydrox/Alum Hydrox 30 Ml Oral.Susp PO 08/07/22 01:12 30 ml ONCE ONE Administration Diphenhydramine HCl 25 mg 08/07/22 01:25 08/07/22 01:42 Diphenhydramine Hcl 50 Mg/Ml Vial IVPUSH 08/07/22 01:26 25 mg ONCE ONE Administration Sodium Chloride 1,000 mls @ 999 mls/hr 08/07/22 00:45 08/07/22 02:06 Ns IV 08/07/22 01:45 Infused .Q1H1M ALLAN Infusion Metoclopramide HCl 10 mg 08/07/22 01:25 08/07/22 01:43 Metoclopramide Hcl 10 Mg/2 Ml Vial IVPUSH 08/07/22 01:26 10 mg ONCE ONE Administration Pyridoxine HCl 25 mg 08/07/22 00:38 08/07/22 01:39 Pyridoxine Hcl (Vitamin B6) 50 Mg Tablet PO 08/07/22 00:39 25 mg ONCE ONE Administration <Harpal Ortega MD - Last Filed: 08/07/22 06:39> Critical Care Time Critical Care Time Critical Care Time: No <RAMOS Goncalves - Last Filed: 08/07/22 02:36> Discharge Plan Discharge Clinical Impression: Nausea and vomiting during , Gastritis <Emmy Santana NP - Last Filed: 08/06/22 20:02> Patient Disposition: Home, Self-Care <Emmy Santana NP - Last Filed: 08/06/22 20:02> Instructions: Nausea and Vomiting in (ED), Acute Nausea and Vomiting (ED) <Emmy Santana NP - Last Filed: 08/06/22 20:02> Additional Instructions: Continue taking your antibiotic as prescribed. Your blood work was unremarkable. Your COVID-19 test was negative. Take Phenergan (promethazine) 25 mg suppositories, 1 suppository every 6 hours as needed for nausea and vomiting. Cimetidine is a medication that reduces the amount of acid that your stomach produces and will help with your heartburn symptoms. Take cimetidine 800 mg pills, 1 pill every 12 hours for 1 month. For the next 24 hours, stay on a MARY ANN diet (bananas, rice, applesauce, tea and toast). Follow-up with your doctor in 2 days. Please return to the emergency department if your symptoms get worse or if you develop any symptoms that are concerning to you. <Emmy Santana NP - Last Filed: 08/06/22 20:02> Prescriptions: New pyridoxine (vitamin B6) 25 mg tablet 25 mg PO TID PRN (Reason: nausea and vomiting) Qty: 30 0RF cimetidine 800 mg tablet 800 mg PO BID Qty: 60 0RF Rx Instructions: administer with meals promethazine 25 mg tablet 25 mg PO Q6H PRN (Reason: nausea and vomiting) Qty: 14 0RF No Action pantoprazole [Protonix] 40 mg tablet,delayed release (DR/EC) 40 mg PO DAILY Qty: 30 0RF ondansetron 4 mg tablet,disintegrating 4 mg PO Q8H PRN (Reason: nausea and vomiting) Qty: 10 0RF cephalexin 500 mg tablet 500 mg PO Q6H 7 Days Qty: 28 0RF prenat.vits,jayesh,ahn-iszn-vtevs Tablet 1 tab PO DAILY Qty: 30 0RF metoclopramide HCl [Reglan] 10 mg tablet 10 mg PO Q6H PRN (Reason: nausea and vomiting) Qty: 10 0RF <Emmy Santana NP - Last Filed: 08/06/22 20:02> Referrals: [facility] [place] [facility] [Provider Group] - 1 day <Emmy Santana NP - Last Filed: 08/06/22 20:02>
[2022-08-06 21:49] LABS: MANUAL DIFF FLAG NO
[2022-08-06 21:52] LABS: Basophils Percent Auto 0.1 % (0-2); Hematocrit 32.8 % (37.0-47.0); Hemoglobin 11.4 g/dl (12.0-16.0); Imm Gran Abs Auto 0.02 X10*3/uL (0.00-0.03); Imm Gran Pct Auto 0.3 % (0.0-0.4); Lymphocytes Absolute Auto 1.1 X10*3/uL (1.2-4.9); Lymphocytes Percent Auto 15.4 % (20-40); Mean Corpuscular HGB Conc 34.8 g/dl (31.0-35.0); Mean Corpuscular Hemoglobin 30.1 pg (27.0-33.0); Mean Corpuscular Volume 86.5 fL (80.0-98.0); Monocytes Absolute Auto 0.2 X10*3/uL (0.1-1.2); Neutrophils Absolute Auto 5.6 x10*3/uL (2.0-8.3); Neutrophils Percent Auto 81.2 % (45-73); Platelet Count 355 X10*3/uL (160-400); Red Blood Count 3.79 X10*6/uL (4.20-5.50); Red Cell Distribution Width 12.8 % (11.0-16.0)
[2022-08-06 22:08] LABS: COVID-19 Test Negative (Negative)
[2022-08-06 22:14] LABS: Alanine Aminotransferase 59 U/L (0-31); Alkaline Phosphatase 97 U/L (39-117); Anion Gap 13 (12-20); Aspartate Amino Transferase 19 U/L (5-31); Bilirubin Direct 0.3 mg/dL (0.0-0.5); Bilirubin Total 0.8 mg/dL (0.0-1.0); Blood Urea Nitrogen 5 mg/dL (9-16); Calcium 9.3 mg/dL (8.4-10.2); Carbon Dioxide 19 mmol/L (22-29); Chloride 106 mmol/L (96-108); Creatinine Clr Calc Pharmacy 120.3; Estimated Glomerular Filt Rate > 60; Glucose Random 96 mg/dL (60-115); Lipase 12 U/L (8-78); Potassium 3.3 mmol/L (3.3-5.1); Sodium 135 mmol/L (135-145); Total Protein 7.1 g/dL (6.5-8.0)
[2022-08-06 23:16] VITALS: BP 114/65; PULSE 61; RESP 17; TEMP 36.9; O2SAT 100
[2022-08-07] MEDS: 0.9 % Sodium Chloride 1,000 ML 999 ML IV (01:05)
[2022-08-07 01:08] VITALS: BP 112/68; PULSE 60; RESP 18; TEMP 36.7; O2SAT 100
--- NOTE | 2022-08-07 01:12 | ECG_ITS ---
Test Reason : NAUSEA Blood Pressure : / mmHG Vent. Rate : 058 BPM Atrial Rate : 058 BPM P-R Int : 120 ms QRS Dur : 096 ms QT Int : 466 ms P-R-T Axes : 028 039 043 degrees QTc Int : 457 ms Sinus bradycardia Incomplete right bundle branch block Borderline ECG When compared to the previous EKG of No significant changes seen Referred By: Cindy Vasquez Electronically Signed By:Scott Schafer
[2022-08-07] MEDS: Magnesium Hydrox/Alum Hydrox 30 ML ORAL.SUSP PO (01:39)
[2022-08-07] MEDS: Pyridoxine HCl (Vitamin B6) 50 MG TABLET 25 MG PO (01:39)
[2022-08-07] MEDS: diphenhydrAMINE HCL 50 MG/ML VIAL 25 MG IVPUSH (01:42)
[2022-08-07] MEDS: Metoclopramide HCl 10 MG/2 ML VIAL IVPUSH (01:43)
[2022-08-07 02:55] LABS: Troponin-I High Sensitivity < 3.5 ng/L (<3.5-17.0)
[2022-08-07 06:10] VITALS: BP 106/62; PULSE 68; RESP 17; TEMP 36.8; O2SAT 98
[2022-08-07 06:32] LABS: Appearance Urine Cloudy; Color Urine Dark Yellow; Glucose Urine UA Negative (Negative); Leukocyte Esterase Urine Trace (Negative); Nitrite Urine Negative (Negative); Specific Gravity - Urine >= 1.030 (1.005-1.025); UMIC TRIGGER UACC YES; Urine Blood Negative (Negative); Urine Ketones 80 mg/dL (Negative); Urine Protein 30 (1+) mg/dL (Neg-Trace)
[2022-08-07 06:44] LABS: Bacteria Urine 4+ (None Seen); Hyaline Casts Urine 0-2 /LPF (0-2); RBC Urine 0-2 /HPF (0-2); Squamous Epithelial Cell Urine >20 /HPF (0-2); WBC Urine 0-5 /HPF (0-5)
== END 2022-08-07 07:12 | disposition home or self-care (01) ==
PROVIDERS: Nurse Practitioner Family; Physician Assistant; Emergency Provider Emergency Medicine Emergency Medical Services
DX: O26.91 Pregnancy related conditions, unspecified, first trimester (principal); Z3A.11 11 weeks gestation of pregnancy; K29.70 Gastritis, unspecified, without bleeding; R11.2 Nausea with vomiting, unspecified; Z79.899 Other long term (current) drug therapy; Z20.822 Contact with and (suspected) exposure to COVID-19; Z20.828 Contact with and (suspected) exposure to other viral communicable diseases
CPT/HCPCS: 36415; 80048; 80076; 81001; 83690; 84484; 84702; 85025; 87635; 93005; 96361; 96374; 96375; 99284; J1200; J2765

== ENCOUNTER 2022-08-08 17:24 | Inpatient (IN) | payer OTHER, SELFPAY ==
--- NOTE | ~2022-08-08 | MR_ITS ---
EXAMINATION: MR ABDOMEN WITHOUT CONTRAST CLINICAL INFORMATION: Choledocholithiasis. Vomiting postcholecystectomy. COMPARISON: None. TECHNIQUE: Multisequence multidimensional MR acquisition of the abdomen performed on a 1.5 Jordyn magnet. Heavily T2 weighted sequence performed for MRCP acquisition. FINDINGS: LUNG BASES: The visualized lung bases are unremarkable. LIVER, GALLBLADDER, AND BILIARY TREE: The liver is normal in size, smooth in contour, and normal in signal. No focal hepatic lesion or intrahepatic biliary ductal dilatation is present. Cholecystectomy. Normal caliber of the common bile duct measuring 0.3 cm. No ductal filling defect identified. Trace perihepatic fluid noted. PANCREAS: Unremarkable. SPLEEN: Unremarkable. ADRENAL GLANDS: Unremarkable. KIDNEYS AND URETERS: The kidneys are normal in size and shape. No hydronephrosis. No perinephric stranding. GASTROINTESTINAL TRACT: No bowel obstruction. No ascites or fluid collection. ABDOMINAL WALL: No significant hernia is appreciated. LYMPH NODES: No lymphadenopathy. VASCULAR: Caliber aorta. OSSEOUS STRUCTURES: Marrow signal normal. OTHER: Partial visualization of an intrauterine . This is not evaluated on this study. MR/MR MRCP IMPRESSION: 1. Normal caliber of the common bile duct. No ductal filling defect identified. 2. Trace perihepatic fluid. 3. Partial visualization of an intrauterine . This is not evaluated on this study.
--- NOTE | ~2022-08-08 | XR_ITS ---
EXAMINATION: XR chest 2V CLINICAL INFORMATION: Reason for Exam epigastric pain COMPARISON: None TECHNIQUE: 2 views of the chest FINDINGS: Clear lungs. No pneumothorax or pleural effusion. Normal cardiomediastinal silhouette. XR/XR chest 2V IMPRESSION: * Clear lungs.
--- NOTE | ~2022-08-08 | US_ITS ---
EXAMINATION: US FIRST TRIMESTER CLINICAL INFORMATION: Pain LMP: Unknown Beta-hCG: Unknown COMPARISON: 07/19/2022 TECHNIQUE: Transabdominal imaging was performed. FINDINGS: UTERUS AND INTRAUTERINE GESTATIONAL SAC: There is a single intrauterine gestational sac. CROWN-RUMP LENGTH (CRL) : 5.29 cm, estimated age 12 weeks and 1 day, estimated date of confinement is 02/20/2023 YOLK SAC: Not found HEART MOTION: 153 BPM. SUBCHORIONIC HEMORRHAGE: None OVARIES: Right: Normal Left: Normal FREE FLUID: None OTHER FINDINGS: Incidental finding was made of gallbladder debris and small stones. Thickening of the gallbladder wall roughly 4 mm. No pericholecystic fluid, this was previously evaluated one day earlier, suspect cholecystitis.. US/US OB <= 14 weeks fetus IMPRESSION: 1. No ultrasound evidence of subchorionic bleed. 2. Live intrauterine 12 weeks 1 day. 3. Redemonstration of multiple gallstones with thickening of the gallbladder, as previously suggested on ultrasound from one day earlier this is concerning for acute cholecystitis.
--- NOTE | ~2022-08-08 | US_ITS ---
EXAMINATION: US Limited OB first trimester CLINICAL INFORMATION: Postoperative confirm viability. COMPARISON: Prior ultrasound same day earlier TECHNIQUE: Limited ultrasound just to confirm postoperative viability. FINDINGS: Ultrasound revealed single live intrauterine , heart rate detected at 147 bpm. US/US OB <= 14 weeks fetus IMPRESSION: Live intrauterine .
--- NOTE | ~2022-08-08 | US_ITS ---
EXAMINATION: US ABDOMEN LIMITED CLINICAL INFORMATION: Right upper quadrant pain cholecystitis??. COMPARISON: 07/19/2022 TECHNIQUE: Real-time imaging of the gallbladder and common bile duct. FINDINGS: GALLBLADDER: Gallbladder is filled with echogenic, shadowing foci, consistent with cholelithiasis. A small amount of sludge is also suspected. Gallbladder wall is normal in thickness, measuring between 1 and 2 mm in thickness. Patient is tender in the region of the gallbladder. COMMON BILE DUCT: Normal in caliber measuring 0.3 cm in diameter. Imaged portion of the liver is unremarkable without appreciable intrahepatic ductal dilatation, the liver is only partially assessed. US/US abdomen limited IMPRESSION: Cholelithiasis. Sludge is also likely present in the gallbladder. The presence of a positive sonographic Esteves's sign does raise the possibility of acute cholecystitis, though there are no additional supportive sonographic findings (such as wall thickening or pericholecystic fluid) to support acute inflammation.
[2022-08-08 17:53] VITALS: BP 101/60; PULSE 71; RESP 20; TEMP 37; O2SAT 100; BMI 22.7
--- NOTE | 2022-08-08 17:57 | ED.GENADULT ---
HPI - General Adult General Chief complaint: Abdominal Pain <RAMOS Mcintyre - Last Filed: 08/08/22 17:58> Stated complaint: Abdominal pain <RAMOS Mcintyre - Last Filed: 08/08/22 17:58> Time Seen by Provider: 08/08/22 19:49 <RAMOS Mcintyre - Last Filed: 08/08/22 17:58> History of Present Illness HPI narrative: Patient is 11 weeks primary comes here for persistent vomiting and epigastric discomfort for last 4 weeks patient was seen here 2 days ago workup was negative ultrasound done on 07/19/22 showed sludge/gallstones patient unable to get the prescription filled been vomiting persistently now vomited about 20 times today able to hold any liquids <Vasiliy Bryant MD - Last Filed: 08/09/22 00:57> Related Data Home medications: Previous Rx's Medication Instructions Recorded metoclopramide HCl 10 mg tablet 10 mg PO Q6H PRN nausea and 07/11/22 (Reglan) vomiting #10 tabs cephalexin 500 mg tablet 500 mg PO Q6H 7 days #28 tabs 07/19/22 ondansetron 4 mg disintegrating 4 mg PO Q8H PRN nausea and 07/19/22 tablet vomiting #10 tabs pantoprazole 40 mg tablet,delayed 40 mg PO DAILY #30 tabs 07/19/22 release (Protonix) prenat.vits,jayesh,kuq-nohu-tqelv 1 tab PO DAILY #30 tabs 07/19/22 cimetidine 800 mg tablet 800 mg PO BID #60 tabs 08/07/22 promethazine 25 mg tablet 25 mg PO Q6H PRN nausea and 08/07/22 vomiting #14 tabs pyridoxine (vitamin B6) 25 mg 25 mg PO TID PRN nausea and 08/07/22 tablet vomiting #30 tabs <RAMOS Mcintyre - Last Filed: 08/08/22 17:58> Allergies/adverse reactions: Allergies Allergy/AdvReac Type Severity Reaction Status Date / Time No Known Allergies Allergy Verified 08/08/22 17:59 <RAMOS Mcintyre - Last Filed: 08/08/22 17:58> Review of Systems Review of Systems: Yes all other systems are reviewed and are negative <Vasiliy Bryant MD - Last Filed: 08/09/22 00:57> FORMERLY [facility] Social History Social History: Social History Alcohol intake: unknown Advance Directives: No Advance Directives Information Provided: No <RAMOS Mcintyre - Last Filed: 08/08/22 17:58> Physical Exam ED Vital Signs: Vital Signs - 24 hr 08/08/22 17:53 08/08/22 19:44 08/08/22 23:32 Temperature 98.6 F 98.6 F 99.4 F Pulse Rate 71 56 58 Respiratory Rate 20 20 18 Blood Pressure 101/60 112/63 104/56 L Pulse Oximetry 100 99 97 Oxygen Delivery Method Room Air Room Air Room Air BMI result Body Mass Index 22.7 <RAMOS Mcintyre - Last Filed: 08/08/22 17:58> Vital Signs - 24 hr 08/08/22 17:53 08/08/22 19:44 08/08/22 23:32 Temperature 98.6 F 98.6 F 99.4 F Pulse Rate 71 56 58 Respiratory Rate 20 20 18 Blood Pressure 101/60 112/63 104/56 L Pulse Oximetry 100 99 97 Oxygen Delivery Method Room Air Room Air Room Air BMI result Body Mass Index 22.7 <Vasiliy Bryant MD - Last Filed: 08/09/22 00:57> Appearance: Alert. Oriented X3. No acute distress. Eyes: No pallor or icterus ENT: Pharynx normal. Oral Mucosa moist Neck: Normal inspection. Neck supple. CVS: Normal heart rate and rhythm. Pulses normal. Respiratory: No respiratory distress. Equal air entry bilateral, no wheezing/rales/rhonchi Abdomen: Soft , epigastric tenderness+ Esteves sign negative, Bowel sounds are present, no mass palpable, no CVA tenderness Skin: Skin warm and dry. Normal skin color. Normal skin turgor. Extremities: No lower extremity edema. No calf tenderness Neuro: Oriented X 3. No motor deficit. <Vasiliy Bryant MD - Last Filed: 08/09/22 00:57> Course Course Course Narrative: RME performed by Clarita Hill PA-C. Patient is a 26 year old female presenting to the emergency department with epigastric pain. Patient states that it best when she swallows and everything she eats, she throws up. Labs ordered. Patient placed back in waiting room pending room availability and results. <RAMOS Mcintyre - Last Filed: 08/08/22 17:58> Medications Administered Discontinued Medications Generic Name Dose Route Start Last Admin Trade Name Divya PRN Reason Stop Dose Admin Al Hydroxide/Mg Hydroxide 30 ml 08/08/22 20:09 08/08/22 20:43 Magnesium Hydrox/Alum Hydrox 30 Ml Oral.Susp PO 08/08/22 20:10 30 ml ONCE ONE Administration Famotidine 20 mg 08/08/22 20:09 08/08/22 20:43 Famotidine/Pf 20 Mg/2 Ml Vial IVPUSH 08/08/22 20:10 20 mg ONCE ONE Administration Sodium Chloride 1,000 mls @ 999 mls/hr 08/08/22 20:09 08/08/22 22:38 Ns IV 08/08/22 21:09 Infused .Q1H1M ONE Infusion Lidocaine HCl 15 ml 08/08/22 22:59 08/08/22 23:21 Lidocaine Hcl Viscous 2 % 15 Ml Solution MUCOUS MEM 08/08/22 23:00 15 ml ONCE ONE Administration Ondansetron HCl 4 mg 08/08/22 20:09 08/08/22 20:43 Ondansetron Hcl 4 Mg/2 Ml Vial IVPUSH 08/08/22 20:10 4 mg ONCE ONE Administration <RAMOS Mcintyre - Last Filed: 08/08/22 17:58> Medications Administered Discontinued Medications Generic Name Dose Route Start Last Admin Trade Name Freq PRN Reason Stop Dose Admin Al Hydroxide/Mg Hydroxide 30 ml 08/08/22 20:09 08/08/22 20:43 Magnesium Hydrox/Alum Hydrox 30 Ml Oral.Susp PO 08/08/22 20:10 30 ml ONCE ONE Administration Famotidine 20 mg 08/08/22 20:09 08/08/22 20:43 Famotidine/Pf 20 Mg/2 Ml Vial IVPUSH 08/08/22 20:10 20 mg ONCE ONE Administration Sodium Chloride 1,000 mls @ 999 mls/hr 08/08/22 20:09 08/08/22 22:38 Ns IV 08/08/22 21:09 Infused .Q1H1M ONE Infusion Lidocaine HCl 15 ml 08/08/22 22:59 08/08/22 23:21 Lidocaine Hcl Viscous 2 % 15 Ml Solution MUCOUS MEM 08/08/22 23:00 15 ml ONCE ONE Administration Ondansetron HCl 4 mg 08/08/22 20:09 08/08/22 20:43 Ondansetron Hcl 4 Mg/2 Ml Vial IVPUSH 08/08/22 20:10 4 mg ONCE ONE Administration <Vasiliy Bryant MD - Last Filed: 08/09/22 00:57> Medical Decision Making Medical Decision Making [facility] Narrative: Patient 11 weeks with cholelithiasis with sludge with Esteves sign positive persistent vomiting for 48 hours unable to hold liquids down 2nd visit to the ER for same normal LFTs normal WBC count will admit patient for biliary colic for possible cholecystectomy for persistent pain case with Dr. Ireland surgeon will admit the patient to his service <Vasiliy Bryant MD - Last Filed: 08/09/22 00:57> Lab Data [facility] Lab Attestation statement: I reviewed the patient's lab results. <Vasiliy Bryant MD - Last Filed: 08/09/22 00:57> Result Diagrams: 08/08/22 18:40 08/08/22 18:40 <RAMOS Mcintyre - Last Filed: 08/08/22 17:58> Labs: Lab Results 08/08/22 08/08/22 Range/Units 18:40 18:40 WBC 6.6 (4.8-10.8) X10*3/uL RBC 3.57 L (4.20-5.50) X10*6/uL Hgb 10.6 L (12.0-16.0) g/dl Hct 30.5 L (37.0-47.0) % MCV 85.4 (80.0-98.0) fL MCH 29.7 (27.0-33.0) pg MCHC 34.8 (31.0-35.0) g/dl RDW 12.9 (11.0-16.0) % Plt Count 306 (160-400) X10*3/uL MPV 9.8 (9.4-12.3) fL Immature Gran % (Auto) 0.3 (0.0-0.4) % Neut % (Auto) 71.0 (45-73) % Lymph % (Auto) 21.8 (20-40) % Young % (Auto) 6.4 (2-11) % Eos % (Auto) 0.2 (0-4) % Baso % (Auto) 0.3 (0-2) % Lymph # (Auto) 1.4 (1.2-4.9) X10*3/uL Young # (Auto) 0.4 (0.1-1.2) X10*3/uL Eos # (Auto) 0.0 (0.0-0.4) X10*3/uL Baso # (Auto) 0.0 (0.0-0.2) X10*3/uL Abs Immat Gran (auto) 0.02 (0.00-0.03) X10*3/uL Absolute Neuts (auto) 4.7 (2.0-8.3) x10*3/uL Absolute Nucleated RBC 0.000 (0.0-0.012) X10*3/uL Nucleated RBC % (auto) 0.0 (0.0-0.2) /100WBC Sodium 134 L (135-145) mmol/L Potassium 3.3 (3.3-5.1) mmol/L Chloride 103 (96-108) mmol/L Carbon Dioxide 20 L (22-29) mmol/L Anion Gap 14 (12-20) BUN 4 L (9-16) mg/dL Creatinine 0.46 L (0.5-1.4) mg/dL Estim Creat Clear Calc 132.4 Estimated GFR > 60 Random Glucose 84 (60-115) mg/dL Calcium 8.9 (8.4-10.2) mg/dL Magnesium 2.0 (1.6-2.6) mg/dL Total Bilirubin 0.7 (0.0-1.0) mg/dL AST 23 (5-31) U/L ALT 53 H (0-31) U/L Alkaline Phosphatase 81 (39-117) U/L Total Protein 6.4 L (6.5-8.0) g/dL Albumin 3.8 (3.5-5.0) g/dL Beta HCG, Quant 11892 mIU/mL <RAMOS Mcintyre - Last Filed: 08/08/22 17:58> Lab Results 08/08/22 08/08/22 Range/Units 18:40 18:40 WBC 6.6 (4.8-10.8) X10*3/uL RBC 3.57 L (4.20-5.50) X10*6/uL Hgb 10.6 L (12.0-16.0) g/dl Hct 30.5 L (37.0-47.0) % MCV 85.4 (80.0-98.0) fL MCH 29.7 (27.0-33.0) pg MCHC 34.8 (31.0-35.0) g/dl RDW 12.9 (11.0-16.0) % Plt Count 306 (160-400) X10*3/uL MPV 9.8 (9.4-12.3) fL Immature Gran % (Auto) 0.3 (0.0-0.4) % Neut % (Auto) 71.0 (45-73) % Lymph % (Auto) 21.8 (20-40) % Young % (Auto) 6.4 (2-11) % Eos % (Auto) 0.2 (0-4) % Baso % (Auto) 0.3 (0-2) % Lymph # (Auto) 1.4 (1.2-4.9) X10*3/uL Young # (Auto) 0.4 (0.1-1.2) X10*3/uL Eos # (Auto) 0.0 (0.0-0.4) X10*3/uL Baso # (Auto) 0.0 (0.0-0.2) X10*3/uL Abs Immat Gran (auto) 0.02 (0.00-0.03) X10*3/uL Absolute Neuts (auto) 4.7 (2.0-8.3) x10*3/uL Absolute Nucleated RBC 0.000 (0.0-0.012) X10*3/uL Nucleated RBC % (auto) 0.0 (0.0-0.2) /100WBC Sodium 134 L (135-145) mmol/L Potassium 3.3 (3.3-5.1) mmol/L Chloride 103 (96-108) mmol/L Carbon Dioxide 20 L (22-29) mmol/L Anion Gap 14 (12-20) BUN 4 L (9-16) mg/dL Creatinine 0.46 L (0.5-1.4) mg/dL Estim Creat Clear Calc 132.4 Estimated GFR > 60 Random Glucose 84 (60-115) mg/dL Calcium 8.9 (8.4-10.2) mg/dL Magnesium 2.0 (1.6-2.6) mg/dL Total Bilirubin 0.7 (0.0-1.0) mg/dL AST 23 (5-31) U/L ALT 53 H (0-31) U/L Alkaline Phosphatase 81 (39-117) U/L Total Protein 6.4 L (6.5-8.0) g/dL Albumin 3.8 (3.5-5.0) g/dL Beta HCG, Quant 40625 mIU/mL <Vasiliy Bryant MD - Last Filed: 08/09/22 00:57> Radiology Impression Discussion of test interpretation with radiology: I have reviewed the radiologist's reading. <Vasiliy Bryant MD - Last Filed: 08/09/22 00:57> Radiologist Impression: Cholelithiasis. Sludge is also likely present in the gallbladder. The presence of a positive sonographic Esteves's sign does raise the possibility of acute cholecystitis, though there are no additional supportive sonographic findings (such as wall thickening or pericholecystic fluid) to support acute inflammation <Vasiliy Bryant MD - Last Filed: 08/09/22 00:57> Discharge Plan Discharge Clinical Impression: Cholecystitis, Vomiting, First trimester <RAMOS Mcintyre - Last Filed: 08/08/22 17:58> Patient Disposition: Admitted As Inpatient <RAMOS Mcintyre - Last Filed: 08/08/22 17:58>
--- NOTE | 2022-08-08 17:58 | ECG_ITS ---
Test Reason : EPIGASTRIC PAIN Blood Pressure : / mmHG Vent. Rate : 061 BPM Atrial Rate : 061 BPM P-R Int : 114 ms QRS Dur : 094 ms QT Int : 414 ms P-R-T Axes : 044 025 021 degrees QTc Int : 416 ms Normal sinus rhythm RSR' or QR pattern in V1 suggests right ventricular conduction delay Borderline ECG When compared with ECG of 07-AUG-2022 01:34, No significant change was found Referred By: Clarita Hill Electronically Signed By:Scott Schafer
[2022-08-08 18:43] LABS: MANUAL DIFF FLAG NO
[2022-08-08 18:44] LABS: Basophils Percent Auto 0.3 % (0-2); Eosinophils Percent Auto 0.2 % (0-4); Hematocrit 30.5 % (37.0-47.0); Hemoglobin 10.6 g/dl (12.0-16.0); Imm Gran Abs Auto 0.02 X10*3/uL (0.00-0.03); Imm Gran Pct Auto 0.3 % (0.0-0.4); Lymphocytes Absolute Auto 1.4 X10*3/uL (1.2-4.9); Lymphocytes Percent Auto 21.8 % (20-40); Mean Corpuscular HGB Conc 34.8 g/dl (31.0-35.0); Mean Corpuscular Hemoglobin 29.7 pg (27.0-33.0); Mean Corpuscular Volume 85.4 fL (80.0-98.0); Mean Platelet Volume 9.8 fL (9.4-12.3); Monocytes Absolute Auto 0.4 X10*3/uL (0.1-1.2); Monocytes Percent Auto 6.4 % (2-11); Neutrophils Absolute Auto 4.7 x10*3/uL (2.0-8.3); Platelet Count 306 X10*3/uL (160-400); Red Blood Count 3.57 X10*6/uL (4.20-5.50); Red Cell Distribution Width 12.9 % (11.0-16.0); White Blood Count 6.6 X10*3/uL (4.8-10.8)
[2022-08-08 19:19] LABS: Alanine Aminotransferase 53 U/L (0-31); Albumin Level 3.8 g/dL (3.5-5.0); Alkaline Phosphatase 81 U/L (39-117); Anion Gap 14 (12-20); Aspartate Amino Transferase 23 U/L (5-31); Bilirubin Total 0.7 mg/dL (0.0-1.0); Blood Urea Nitrogen 4 mg/dL (9-16); Calcium 8.9 mg/dL (8.4-10.2); Carbon Dioxide 20 mmol/L (22-29); Chloride 103 mmol/L (96-108); Creatinine Clr Calc Pharmacy 132.4; Estimated Glomerular Filt Rate > 60; Glucose Random 84 mg/dL (60-115); Potassium 3.3 mmol/L (3.3-5.1); Sodium 134 mmol/L (135-145); Total Protein 6.4 g/dL (6.5-8.0)
[2022-08-08 19:44] VITALS: BP 112/63; PULSE 56; RESP 20; TEMP 37; O2SAT 99
[2022-08-08] MEDS: 0.9 % Sodium Chloride 1,000 ML 999 ML IV (20:41)
[2022-08-08] MEDS: Famotidine/PF 20 MG/2 ML VIAL IVPUSH (20:43)
[2022-08-08] MEDS: ondansetron HCL 4 MG/2 ML VIAL IVPUSH (20:43)
[2022-08-08] MEDS: Magnesium Hydrox/Alum Hydrox 30 ML ORAL.SUSP PO (20:43)
--- NOTE | 2022-08-08 20:46 | PC.NURSE ---
pt medicated per provider order, NS running.
--- NOTE | 2022-08-08 22:46 | PC.NURSE ---
pt continues to report abd pain. no nausea at this time.
[2022-08-08] MEDS: Lidocaine HCl Viscous 2 % 15 ML SOLUTION MUCOUS MEM (23:21)
[2022-08-08 23:32] VITALS: BP 104/56; PULSE 58; RESP 18; TEMP 37.4; O2SAT 97
[2022-08-09] VITALS (14 sets, daily range): BP systolic 96–119; BP diastolic 56–74; PULSE 56–78; RESP 16–18; TEMP 36.2–36.8; O2SAT 98–100
--- NOTE | 2022-08-09 01:05 | P.HPGS_ITS ---
History of Present Illness History of Present Illness Date of Service: 08/09/22 Chief complaint: biliary colic Narrative: Liseth Hernandez is a 26 year old female 11 wks with biliary colic & inability to tolerate PO. She is seen with the help of anchor operator and her partner is at the bedside. She notes this is the 2nd or 3rd time she has had abdominal pain and describes both lower abdominal pain in her suprapubic/infraumbilical area with diffuse radiation causing nausea and vomiting. She further denies epigastric and right upper quadrant pain with vomiting. The patient and her partner note that she is trying to keep the baby and expressed concerns regarding her ongoing pain and inability to tolerate p.o.. She denies other significant medical problems such as diabetes, hypertension and denies any significant family health problems Review of Systems Review of Systems: Yes all other systems are reviewed and are negative Constitutional: Constitutional: Reports as per [facility] Past Medical History Medical History Cholecystitis Functional capacity: independent ambulation Social History Social History Alcohol intake: unknown Patient Tobacco Use Status: Tobacco use Unknown Advance Directives: No Advance Directives Information Provided: No Nutrition Risks: No Nutritional Risk Meds Allergies Allergy/AdvReac Type Severity Reaction Status Date / Time No Known Allergies Allergy Verified 08/08/22 17:59 Active Medications: Current Medications Sodium Chloride (Ns) 1,000 mls @ 999 mls/hr IV .Q1H1M ONE Stop: 08/09/22 01:51 Physical Exam Vital Signs: Vital Signs: Last Vital Signs Temp 99.4 F 08/08/22 23:32 Pulse 58 08/08/22 23:32 Resp 18 08/08/22 23:32 BP 104/56 L 08/08/22 23:32 Pulse Ox 97 08/08/22 23:32 O2 Del Method 08/08/22 23:32 BMI result Body Mass Index 22.7 The patient is non-toxic NC/AT, PERRLA, EOMI Mood, affect & judgment all appear appropriate Sclera anicteric conjunctiva pink and moist Oropharynx is clear with no aphthous ulcers, Mallampati class 1, mucous membranes moist Neck is supple with no masses, adenopathy or bruits Heart is regular, normal S1-S2 no rubs or murmurs Lungs are clear and equal anteriorly with no audible wheezing, rubs or dullness to percussion Abdomen is shows no demonstrable hernias. No HSM, rebound, rigidity, guarding, masses or bruits are present. Some vague epigastric and right upper quadrant tenderness is present as well as infraumbilical midline and right lower quadrant tenderness. Rectal exam is deferred Skin has good turgor and is free of rashes Extremities free of cyanosis clubbing edema Results Results Labs: Short CBC 08/08/22 Range/Units 18:40 WBC 6.6 (4.8-10.8) X10*3/uL Hgb 10.6 L (12.0-16.0) g/dl Hct 30.5 L (37.0-47.0) % Plt Count 306 (160-400) X10*3/uL BMP 08/08/22 18:40 Sodium 134 L Potassium 3.3 Chloride 103 Carbon Dioxide 20 L BUN 4 L Creatinine 0.46 L Calcium 8.9 Liver Function 08/08/22 Range/Units 18:40 Total Bilirubin 0.7 (0.0-1.0) mg/dL AST 23 (5-31) U/L ALT 53 H (0-31) U/L Alkaline Phosphatase 81 (39-117) U/L Albumin 3.8 (3.5-5.0) g/dL Abdominal ultrasound report/results: report reviewed and image reviewed Additional studies: Repeat labs from this morning show no white count and no liver function elevation. Assessment and Plan (1) Biliary colic: Status: Acute (2) Vomiting: Status: Acute (3) First trimester : Status: Acute Plan NPO IVF Pain meds & antiemetics trend labs will discuss & biliary colic I have contacted Dr. Combs for input regarding the patient's abdominal complaints. She does not appear to have acute calculous cholecystitis as evidence by ultrasound and lab findings and current physical exam. She is likely experiencing intermittent biliary colic, but part of her history described ongoing nausea which may be secondary to her . A consult has been placed and he will see the patient. Continue IV fluid, pain meds and will reassess later today. Time Spent With Patient Time: Total time managing care of this patient today ____ minutes. Quality Stroke Does the patient have a stroke diagnosis?: No VTE Prior VTE?: No VTE Risk Level:: Surgical - moderate VTE Device Contraindication: N/A - Device Ordered VTE Drug Contraindication: Treatment Not Indicated Procedures Date of Service Date of Service: 08/09/22
[2022-08-09] MEDS: 0.9 % Sodium Chloride 1,000 ML 999 ML IV (01:26)
[2022-08-09] MEDS: Morphine Sulfate 4 MG/ML CARTRIDGE IVPUSH (01:27)
[2022-08-09 01:30] LABS: Appearance Urine Cloudy; Color Urine Yellow; Glucose Urine UA Negative (Negative); Leukocyte Esterase Urine Small (1+) (Negative); Nitrite Urine Negative (Negative); PH 6.5 (5.0-9.0); Specific Gravity - Urine 1.025 (1.005-1.025); UMIC TRIGGER UACC YES; Urine Blood Negative (Negative); Urine Ketones >=160 mg/dL (Negative); Urine Protein Trace mg/dL (Neg-Trace)
[2022-08-09 01:33] LABS: COVID-19 Test Negative (Negative); IDNOW Serial# 6674DD1D
[2022-08-09 01:55] LABS: Bacteria Urine 3+ (None Seen); Hyaline Casts Urine 0-2 /LPF (0-2); RBC Urine 0-2 /HPF (0-2); UACC Culture Trigger YES; WBC Urine 0-5 /HPF (0-5)
[2022-08-09 06:18] LABS: MANUAL DIFF FLAG NO
[2022-08-09 06:20] LABS: Basophils Percent Auto 0.5 % (0-2); Eosinophils Percent Auto 0.2 % (0-4); Hematocrit 28.5 % (37.0-47.0); Hemoglobin 9.7 g/dl (12.0-16.0); Imm Gran Abs Auto 0.01 X10*3/uL (0.00-0.03); Imm Gran Pct Auto 0.2 % (0.0-0.4); Lymphocytes Absolute Auto 2.3 X10*3/uL (1.2-4.9); Lymphocytes Percent Auto 37.9 % (20-40); Mean Corpuscular Hemoglobin 29.6 pg (27.0-33.0); Mean Corpuscular Volume 86.9 fL (80.0-98.0); Mean Platelet Volume 10.1 fL (9.4-12.3); Monocytes Absolute Auto 0.5 X10*3/uL (0.1-1.2); Monocytes Percent Auto 7.7 % (2-11); Neutrophils Absolute Auto 3.2 x10*3/uL (2.0-8.3); Neutrophils Percent Auto 53.5 % (45-73); Platelet Count 255 X10*3/uL (160-400); Red Blood Count 3.28 X10*6/uL (4.20-5.50); Red Cell Distribution Width 13.1 % (11.0-16.0)
[2022-08-09 06:40] LABS: Alanine Aminotransferase 39 U/L (0-31); Albumin Level 3.1 g/dL (3.5-5.0); Alkaline Phosphatase 70 U/L (39-117); Anion Gap 9 (12-20); Aspartate Amino Transferase 17 U/L (5-31); Bilirubin Total 0.6 mg/dL (0.0-1.0); Blood Urea Nitrogen 5 mg/dL (9-16); Calcium 7.9 mg/dL (8.4-10.2); Carbon Dioxide 20 mmol/L (22-29); Chloride 109 mmol/L (96-108); Creatinine Clr Calc Pharmacy 135.4; Estimated Glomerular Filt Rate > 60; Glucose Random 63 mg/dL (60-115); Potassium 3.4 mmol/L (3.3-5.1); Sodium 135 mmol/L (135-145); Total Protein 5.3 g/dL (6.5-8.0)
--- NOTE | 2022-08-09 09:32 | P.CONOB_ITS ---
OB Consult Note - [facility] Data Service Date: 08/09/22 Requesting Physician: Mich Ireland MD, FACS Primary Care Provider: None Physician Narrative I was consulted on Liseth Hernandez who is a 26 year old female at 12 weeks and 1 day of gestation by an early ultrasound presented to the emergency room with right upper quadrant pain associated with nausea and vomiting . The patient presented emergency room twice prior to this presentation with same symptoms and was sent home on Phenergan suppositories, cimetidine and vitamin B6, the patient did not use Phenergan suppositories. Few days ago, the patient start having right upper quadrant pain associated with persistent nausea and vomiting, presented yesterday to the emergency room , no fever or chills, no pelvic cramping and/ or bleeding. CBC within normal, no leukocytosis, UA positive leukocyte esterase negative for nitrites, previous urine cultures on 07/19 grew lactobacillus, for which the patient will prescribe cephalexin she took few tablets but discontinued them on her own. OB PMFSH Past Medical History Medical History Cholecystitis Functional capacity: independent ambulation Social History Social History Alcohol intake: unknown Patient Tobacco Use Status: Tobacco use Unknown Advance Directives: No Advance Directives Information Provided: No Nutrition Risks: No Nutritional Risk Meds Allergies Allergy/AdvReac Type Severity Reaction Status Date / Time No Known Allergies Allergy Verified 08/08/22 17:59 Active Medications: Current Medications Hydromorphone HCl (Hydromorphone Hcl 1 Mg/Ml Syringe) 0.5 mg IVPUSH Q4H PRN; Protocol PRN Reason: Pain, Severe (Pain Scale 7-10) Hydromorphone HCl (Hydromorphone Hcl 0.5 Mg/0.5 Ml Syringe) 0.25 mg IVPUSH Q2H PRN; Protocol PRN Reason: Pain, Moderate (Pain Scale 4-6 Ondansetron HCl (Ondansetron Hcl 4 Mg/2 Ml Vial) 4 mg IVPUSH Q6H PRN PRN Reason: Nausea and Vomiting Sodium Chloride (0.9 % Sodium Chloride Flush 3 Ml Syringe) [facility] Last Admin: 08/09/22 06:35 Dose: Not Given OB Physical Exam Physical Exam Gastrointestinal: Bowel sounds present, Abdomen soft, Tender (Right upper quadrant tenderness, no CVA tenderness) and No guarding Genitourinary (Female): Normal external genitalia, No CVAT, No adnexal masses, No adnexal tenderness, No uterine masses and No uterine tenderness OB Consult Results Labs 08/09/22 05:59 08/09/22 05:59 Labs: Short CBC 08/08/22 08/09/22 Range/Units 18:40 05:59 WBC 6.6 6.0 (4.8-10.8) X10*3/uL Hgb 10.6 L 9.7 L (12.0-16.0) g/dl Hct 30.5 L 28.5 L (37.0-47.0) % Plt Count 306 255 (160-400) X10*3/uL BMP 08/08/22 08/09/22 18:40 05:59 Sodium 134 L 135 Potassium 3.3 3.4 Chloride 103 109 H Carbon Dioxide 20 L 20 L BUN 4 L 5 L Creatinine 0.46 L 0.45 L Calcium 8.9 7.9 L D Liver Function 08/08/22 08/09/22 Range/Units 18:40 05:59 Total Bilirubin 0.7 0.6 (0.0-1.0) mg/dL AST 23 17 (5-31) U/L ALT 53 H 39 H (0-31) U/L Alkaline Phosphatase 81 70 (39-117) U/L Albumin 3.8 3.1 L (3.5-5.0) g/dL Urine 08/09/22 Range/Units 01:24 Urine Color Yellow Urine Appearance Cloudy Urine pH 6.5 (5.0-9.0) Ur Specific [place] 1.025 (1.005-1.025) Urine Protein Trace (Neg-Trace) mg/dL Urine Glucose (UA) Negative (Negative) mg/dL Antibody Screen Antibody Screen NEGATIVE 08/09/22 01:12 OB - CN: A/P Assessment and Plan (1) Biliary colic: Status: Acute Assessment and Plan: Defer management to General surgery (2) Vomiting: Status: Acute Assessment and Plan: -UA shows positive leukocyte esterase, negative for nitrites , urine culture sent. The patient was previously prescribed cephalexin 500 mg p.o. q.6 took few tablets tablets but discontinued them on her own. Check urine culture if positive will treat accordingly -Cholelithiasis by ultrasound, ultrasound showed thickness of the gallbladder wall is 0.44 cm today compared 0.3 cm yesterday, will defer management to general surgeon -Low calcium, asymptomatic, needs calcium with vitamin-D 2 g p.o. q.day, if not tolerated IV, repeat calcium level in the morning -TSH ordered -large ketones in the urine, needs D5 LR at 125 cc /hour -antiemetic treatment: vit B6 25 mg p.o. q.8 hours if tolerated, metoclopramide 5-10 mg IV every 8 hours, if nausea and vomiting is persistent consider Dimenhydrinate 50 mg in 50 cc of normal saline over 20 minutes every 4-6 hours IV, or , or promethazine 25 mg IV q.6 hours IV. A possible association of ondansetron use in the first trimester and cleft palate and cardiac defect has been reported with a low absolute risk, but the data were limited and inconsistent , other studies have not shown the associations. If all other antiemetics fail to control nausea and vomiting, Zofran use benefits will outweigh its potential risks. (3) First trimester : Status: Acute Plan Ob Ultrasound showed live intrauterine at 12 weeks of gestation was 153 beats per minute, no evidence of subchorionic hemorrhage, thickening of gallbladder wall concerning for cholecystitis. GC and chlamydia taken. vitamin tablet p.o. q.d. if tolerate Time Spent With Patient Time: Total time managing care of this patient today ____ minutes.
[2022-08-09] MEDS: Lactated Ringers 1,000 ML 100 ML IVCONT (10:45)
--- NOTE | 2022-08-09 11:55 | W.PM.OPN ---
Operative Note Operative Note Date of Service: 08/09/22 Narrative: Preop diagnosis: [Acute calculous cholecystitis, 12 weeks IU ] Postop diagnosis: [Early acute calculous cholecystitis, retrocecal appendix not visible via laparoscopy] Procedure: [Laparoscopic cholecystectomy] Surgeon: Mich Ireland MD Assist: [] Anesthesia: [GET] Estimated blood loss: [3cc] Specimen: [Gallbladder and contents] Intraoperative findings: [The gallbladder was edematous and starting to become tense consistent with early acute calculous cholecystitis. The cystic duct was 4-5 mm; the cystic artery 3 mm and the critical view of safety demonstrated. The appendix is retrocecal and was not able to be demonstrated without mobilized the cecum. Uterus appeared grossly normal.] Indications: [The patient is a 26-year-old woman with 6 weeks of recurrent biliary colic symptoms. She was noted to be 12 weeks . She reports abdominal pain including localized right upper quadrant pain with unrelenting nature even with IV narcotics. Interval OB ultrasound also evaluated the right upper quadrant, and the gallbladder wall is now thickended to 4mm suggesting acute calculous cholecystitis as the etiology of the patient's pain instead of biliary colic. Following OB consultation with Dr. Combs, options were discussed with the patient and her partner. I recommended allowing 24 hours to see if surgery could be avoided at this point given the risk of demise, however the patient's partner/father of the child and the patient note continued pain and requested surgery be performed at this point since she is not responding to IV narcotics. The inherent risks of the operation including, but are not limited to: Bleeding, infection, need for open surgery, the unlikely but possible issues of bile duct injury, bile leak or retained duct stones and need for ERCP were reviewed via research program assistant. In addition, the fact that loss would occur if we operate now was clearly stated. The patient's partner and the patient acknowledged that they understood and wanted to proceed.] Procedure: [The patient was identified in preoperative holding and again in the operating room and placed supine on the table. 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 The patient was induced in general endotracheal anesthesia administered with excellent effect. An appropriate time-out was performed. A footboard was utilized. The patient's abdomen was widely prepped and draped in the usual manner for surgery using chlorhexidine. Preemptive local was used at all trocar insertion sites. Again at the supraumbilical location and after infiltrating local, made a stab incision and placed a Veress needle without difficulty. An appropriate drop test was performed and a pneumoperitoneum of 15 mmHg was obtained using carbon dioxide. opening pressure was 5mmHg. Next, the needle was withdrawn and a 5 mm/30 degree laparoscoped over Optiview trocar was used to access the abdomen without incident. Upon examining the abdomen, there was no evidence of injury from the Veress needle or trocar. Next, 5 mm trocars were placed in the epigastric, subcostal and right anterior axillary line just above the line of the umbilicus. Under direct laparoscopic vision, the 5 mm umbilical port was upsized to a 12 mm. The patient was then positioned in reverse Trendelenburg position and banked left. The gallbladder was clearly identified and grasped by its fundus. It was retracted cranially and anteriorly and dissection began in the cystic triangle. The cystic duct was identified at its junction on the gallbladder and dissection began laterally, then circumferentially dissected using the [place] dissector and hook. The cystic artery was then carefully identified and circumferentially dissected. Once dissection of both structures was complete and the critical view of safety demonstrated, the duct and artery were double clipped proximally and once distally and sharply divided. Electrocautery was used to remove the gallbladder from its fossa on the liver. Liver bed was inspected for hemostasis and the clips were noted to be on the respective structures. The gallbladder was placed in an Endo-Catch bag and delivered through the umbilicus under direct laparoscopic vision. The abdomen was again inspected with the laparoscoped and a abdomen deflated to assess for hemostasis. The patient was returned to neutral position, the abdomen deflated and the fascia of the supraumbilical incision closed with interrupted Vicryl sutures. Skin was closed with 4-0 Monocryl subcuticular sutures. Mastisol and Steri-Strips were applied followed by Band-Aids. The patient tolerated the procedure well and was extubated recovered in stable condition. All sponge instrument counts were correct. At the patient's request I spoke with her partner, Joseph via hospital research program assistant & explained the operation and postoperative diet, restrictions and OB plan. His questions seemed to be satisfactorily answered. He provided his phone number [phone] to communicate via research program assistant. The need to monitor her for pelvic cramping and vaginal bleeding was discussed.]
[2022-08-09 12:33] LABS: TSH reflex Free T4 0.81 uIU/mL (0.32-4.0)
--- NOTE | 2022-08-09 13:14 | HO.ANESPROP2 ---
[facility] Active Problems Active Problems: All Active Problems (Updated 08/09/22 @ 01:08 by Mich Ireland MD) Biliary colic (Acute) Vomiting (Acute) First trimester (Acute) Past Medical History Medical History Cholecystitis Functional capacity: independent ambulation Family History Family history of problems with anesthesia: No Surgical History History of Problems with Anesthesia: No Social History Social History Alcohol intake: unknown Patient Tobacco Use Status: Tobacco use Unknown Advance Directives: No Advance Directives Information Provided: No Nutrition Risks: No Nutritional Risk Meds Allergies Allergy/AdvReac Type Severity Reaction Status Date / Time No Known Allergies Allergy Verified 08/08/22 17:59 Active Medications: Current Medications Folic Acid (Folic Acid 1 Mg Tablet) 0.5 mg PO DAILY ALLAN Hydromorphone HCl (Hydromorphone Hcl 1 Mg/Ml Syringe) 0.5 mg IVPUSH Q4H PRN; Protocol PRN Reason: Pain, Severe (Pain Scale 7-10) Hydromorphone HCl (Hydromorphone Hcl 0.5 Mg/0.5 Ml Syringe) 0.25 mg IVPUSH Q2H PRN; Protocol PRN Reason: Pain, Moderate (Pain Scale 4-6 Dextrose/Lactated Ringer's (D5lr) 1,000 mls @ 125 mls/hr IVCONT .Q8H ALLAN Metoclopramide HCl (Metoclopramide Hcl 10 Mg/2 Ml Vial) 10 mg IVPUSH Q8H PRN PRN Reason: Nausea Ondansetron HCl (Ondansetron Hcl 4 Mg/2 Ml Vial) 4 mg IVPUSH Q6H PRN PRN Reason: Nausea and Vomiting Pyridoxine HCl (Pyridoxine Hcl (Vitamin B6) 50 Mg Tablet) 25 mg PO Q8H ALLAN Sodium Chloride (0.9 % Sodium Chloride Flush 3 Ml Syringe) 3 ml IVFLUSH QSHIFT [facility] Last Admin: 08/09/22 10:54 Dose: Not Given Home Medications Medication Instructions Recorded Confirmed Last Taken Type vit no.133-ferrous 1 tab PO DAILY 08/09/22 08/09/22 Unknown History fumarate 28 mg-folic acid 800 mcg tablet () Exam Exam Date and Time: August 09, 2022 1314 Height,Weight and Vital Signs: Height 4 ft 10.27 in Weight 49.895 kg Last Vital Signs Temp 98.2 F 08/09/22 11:33 Pulse 71 08/09/22 11:33 Resp 18 08/09/22 11:33 BP 99/62 08/09/22 11:33 Pulse Ox 99 08/09/22 11:33 O2 Del Method 08/09/22 11:33 Pertinent Lab Results Pertinent Lab Results: Laboratory Tests 08/08/22 08/08/22 08/09/22 18:40 18:40 01:12 WBC 6.6 RBC 3.57 L Hgb 10.6 L Hct 30.5 L MCV 85.4 MCH 29.7 MCHC 34.8 RDW 12.9 Plt Count 306 MPV 9.8 Immature Gran % (Auto) 0.3 Neut % (Auto) 71.0 Lymph % (Auto) 21.8 [place] % (Auto) 6.4 Eos % (Auto) 0.2 Baso % (Auto) 0.3 Lymph # (Auto) 1.4 [place] # (Auto) 0.4 Eos # (Auto) 0.0 Baso # (Auto) 0.0 Abs Immat Gran (auto) 0.02 Absolute Neuts (auto) 4.7 Absolute Nucleated RBC 0.000 Nucleated RBC % (auto) 0.0 Sodium 134 L Potassium 3.3 Chloride 103 Carbon Dioxide 20 L Anion Gap 14 BUN 4 L Creatinine 0.46 L Estim Creat Clear Calc 132.4 Estimated GFR > 60 Random Glucose 84 Calcium 8.9 Magnesium 2.0 Total Bilirubin 0.7 AST 23 ALT 53 H Alkaline Phosphatase 81 Total Protein 6.4 L Albumin 3.8 TSH Beta HCG, Quant 56321 Urine Color Urine Appearance Urine pH Ur Specific [place] Urine Protein Urine Glucose (UA) Urine Ketones Urine Blood Urine Nitrite Ur Leukocyte Esterase Urine RBC Urine WBC Ur Squamous Epith Cells Urine Bacteria Hyaline Casts COVID-19 (LU) Negative COVID-19 Clin Com See Note Blood Type Antibody Screen 08/09/22 08/09/22 08/09/22 01:12 01:24 05:59 WBC 6.0 RBC 3.28 L Hgb 9.7 L Hct 28.5 L MCV 86.9 MCH 29.6 MCHC 34.0 RDW 13.1 Plt Count 255 MPV 10.1 Immature Gran % (Auto) 0.2 Neut % (Auto) 53.5 Lymph % (Auto) 37.9 [place] % (Auto) 7.7 Eos % (Auto) 0.2 Baso % (Auto) 0.5 Lymph # (Auto) 2.3 [place] # (Auto) 0.5 Eos # (Auto) 0.0 Baso # (Auto) 0.0 Abs Immat Gran (auto) 0.01 Absolute Neuts (auto) 3.2 Absolute Nucleated RBC 0.000 Nucleated RBC % (auto) 0.0 Sodium Potassium Chloride Carbon Dioxide Anion Gap BUN Creatinine Estim Creat Clear Calc Estimated GFR Random Glucose Calcium Magnesium Total Bilirubin AST ALT Alkaline Phosphatase Total Protein Albumin TSH Beta HCG, Quant Urine Color Yellow Urine Appearance Cloudy Urine pH 6.5 Ur Specific [place] 1.025 Urine Protein Trace Urine Glucose (UA) Negative Urine Ketones >=160 Urine Blood Negative Urine Nitrite Negative Ur Leukocyte Esterase Small (1+) H Urine RBC 0-2 Urine WBC 0-5 Ur Squamous Epith Cells 11-20 Urine Bacteria 3+ Hyaline Casts 0-2 COVID-19 (LU) COVID-[place] Blood Type O Positive Antibody Screen NEGATIVE 08/09/22 05:59 WBC RBC Hgb Hct MCV MCH MCHC RDW Plt Count MPV Immature Gran % (Auto) Neut % (Auto) Lymph % (Auto) [place] % (Auto) Eos % (Auto) Baso % (Auto) Lymph # (Auto) [place] # (Auto) Eos # (Auto) Baso # (Auto) Abs Immat Gran (auto) Absolute Neuts (auto) Absolute Nucleated RBC Nucleated RBC % (auto) Sodium 135 Potassium 3.4 Chloride 109 H Carbon Dioxide 20 L Anion Gap 9 L BUN 5 L Creatinine 0.45 L Estim Creat Clear Calc 135.4 Estimated GFR > 60 Random Glucose 63 Calcium 7.9 L D Magnesium Total Bilirubin 0.6 AST 17 ALT 39 H Alkaline Phosphatase 70 Total Protein 5.3 L Albumin 3.1 L TSH 0.81 Beta HCG, Quant Urine Color Urine Appearance Urine pH Ur Specific [place] Urine Protein Urine Glucose (UA) Urine Ketones Urine Blood Urine Nitrite Ur Leukocyte Esterase Urine RBC Urine WBC Ur Squamous Epith Cells Urine Bacteria Hyaline Casts COVID-19 (LU) COVID-19 [place] Blood Type Antibody Screen Airway Mallampati Class: II TM Dist: >3cm Neck ROM: Full Assessment and Plan Assessment Anesthesia Assessment: Anesthesia Plan Discussed and Chart Reviewed Final Anesthetic Review Family History of Problems with Anesthesia: No History of Problems with Anesthesia: No NPO: Yes ASA Class: II and Emergency Final Preanesthetic Review: No Changes in Pt Med Stat, Meds/Allgs Chart Reviewed, Consent Obtained/Reviewed and Anes Risks/Benef Reviewed Patient Risk: Intermediate Procedure Risk: Intermediate Anesthetic Plan Anesthetic Plan: GA Disposition: Standard PACU
[2022-08-09] MEDS: HYDROmorphone HCl 1 MG/ML SYRINGE 0.5 MG IVPUSH (13:27)
[2022-08-09 14:32] LABS: CT PCR NOT DETECTED (Not Detect.)
[2022-08-09 14:33] LABS: NG PCR NOT DETECTED (Not Detect.)
--- NOTE | 2022-08-09 15:57 | PC.NURSE ---
Addendum entered by All Ivey RN 08/09/22 16:07: Dr. Harrison, anesthesiologist and Dr. Ireland notified via [facility] of HR. Original Note: Ultrasound at bedside for HR check per Dr. Combs order. HR 147. Dr. Combs notified via [facility].
--- NOTE | 2022-08-09 17:00 | PM.PNGS ---
Subjective Subjective Date of Service: 08/09/22 Interval history: Patient was resting comfortable in PACU Physical Exam Vital Signs: Vital Signs: Last Vital Signs Temp 97.6 F 08/09/22 16:49 Pulse 62 08/09/22 16:49 Resp 16 08/09/22 16:49 BP 110/69 08/09/22 16:49 Pulse Ox 100 08/09/22 16:49 O2 Del Method 08/09/22 16:49 BMI result Body Mass Index 22.7 No tachycardia No respiratory distress Dressings clean and intact Objective Data Active Medications Fentanyl (Fentanyl Citrate/Pf 100 Mcg/2 Ml Vial) 50 mcg IVPUSH Q5M PRN; Protocol PRN Reason: Pain, Severe (Pain Scale 7-10) Folic Acid (Folic Acid 1 Mg Tablet) 0.5 mg PO DAILY ALLAN Hydromorphone HCl (Hydromorphone Hcl 1 Mg/Ml Syringe) 0.5 mg IVPUSH Q4H PRN; Protocol PRN Reason: Pain, Severe (Pain Scale 7-10) Last Admin: 08/09/22 13:27 Dose: 0.5 mg Documented By: YULIET Hydromorphone HCl (Hydromorphone Hcl 0.5 Mg/0.5 Ml Syringe) 0.25 mg IVPUSH Q2H PRN; Protocol PRN Reason: Pain, Moderate (Pain Scale 4-6 Dextrose/Lactated Ringer's (D5lr) 1,000 mls @ 125 mls/hr IVCONT .Q8H ALLAN Metoclopramide HCl (Metoclopramide Hcl 10 Mg/2 Ml Vial) 10 mg IVPUSH Q8H PRN PRN Reason: Nausea Ondansetron HCl (Ondansetron Hcl 4 Mg/2 Ml Vial) 4 mg IVPUSH Q6H PRN PRN Reason: Nausea and Vomiting Oxycodone HCl (Oxycodone Hcl Immed Release 5 Mg Tablet) 5 mg PO ONCE PRN PRN Reason: Pain, Severe (Pain Scale 7-10) Pyridoxine HCl (Pyridoxine Hcl (Vitamin B6) 50 Mg Tablet) 25 mg PO Q8H ALLAN Sodium Chloride (0.9 % Sodium Chloride Flush 3 Ml Syringe) 3 ml IVFLUSH QSHIFT [facility] Last Admin: 08/09/22 10:54 Dose: Not Given Documented By: KANCHAN Non-Admin Reason: IV Running Labs 08/09/22 05:59 08/09/22 05:59 Labs: Laboratory Results - last 24 hr 08/08/22 08/08/22 08/09/22 18:40 18:40 01:12 MCV 85.4 MCH 29.7 MCHC 34.8 RDW 12.9 Plt Count 306 MPV 9.8 Immature Gran % (Auto) 0.3 Neut % (Auto) 71.0 Lymph % (Auto) 21.8 [place] % (Auto) 6.4 Eos % (Auto) 0.2 Baso % (Auto) 0.3 Lymph # (Auto) 1.4 [place] # (Auto) 0.4 Eos # (Auto) 0.0 Baso # (Auto) 0.0 Abs Immat Gran (auto) 0.02 Absolute Neuts (auto) 4.7 Absolute Nucleated RBC 0.000 Nucleated RBC % (auto) 0.0 Anion Gap 14 Estim Creat Clear Calc 132.4 Estimated GFR > 60 Random Glucose 84 Calcium 8.9 Magnesium 2.0 Total Bilirubin 0.7 AST 23 ALT 53 H Alkaline Phosphatase 81 Total Protein 6.4 L Albumin 3.8 TSH Beta HCG, Quant 22294 Urine Color Urine Appearance Urine pH Ur Specific [place] Urine Protein Urine Glucose (UA) Urine Ketones Urine Blood Urine Nitrite Ur Leukocyte Esterase Urine RBC Urine WBC Ur Squamous Epith Cells Urine Bacteria Hyaline Casts Chlam trachomat DNA PCR COVID-19 (LU) Negative COVID-19 Clin Com See Note N.gonorrhoeae DNA (PCR) Blood Type Antibody Screen 08/09/22 08/09/22 08/09/22 01:12 01:24 05:59 MCV 86.9 MCH 29.6 MCHC 34.0 RDW 13.1 Plt Count 255 MPV 10.1 Immature Gran % (Auto) 0.2 Neut % (Auto) 53.5 Lymph % (Auto) 37.9 [place] % (Auto) 7.7 Eos % (Auto) 0.2 Baso % (Auto) 0.5 Lymph # (Auto) 2.3 [place] # (Auto) 0.5 Eos # (Auto) 0.0 Baso # (Auto) 0.0 Abs Immat Gran (auto) 0.01 Absolute Neuts (auto) 3.2 Absolute Nucleated RBC 0.000 Nucleated RBC % (auto) 0.0 Anion Gap Estim Creat Clear Calc Estimated GFR Random Glucose Calcium Magnesium Total Bilirubin AST ALT Alkaline Phosphatase Total Protein Albumin TSH Beta HCG, Quant Urine Color Yellow Urine Appearance Cloudy Urine pH 6.5 Ur Specific [place] 1.025 Urine Protein Trace Urine Glucose (UA) Negative Urine Ketones >=160 Urine Blood Negative Urine Nitrite Negative Ur Leukocyte Esterase Small (1+) H Urine RBC 0-2 Urine WBC 0-5 Ur Squamous Epith Cells 11-20 Urine Bacteria 3+ Hyaline Casts 0-2 Chlam trachomat DNA PCR COVID-19 (LU) COVID-19 Clin Com N.gonorrhoeae DNA (PCR) Blood Type O Positive Antibody Screen NEGATIVE 08/09/22 08/09/22 05:59 10:32 MCV MCH MCHC RDW Plt Count MPV Immature Gran % (Auto) Neut % (Auto) Lymph % (Auto) [place] % (Auto) Eos % (Auto) Baso % (Auto) Lymph # (Auto) [place] # (Auto) Eos # (Auto) Baso # (Auto) Abs Immat Gran (auto) Absolute Neuts (auto) Absolute Nucleated RBC Nucleated RBC % (auto) Anion Gap 9 L Estim Creat Clear Calc 135.4 Estimated GFR > 60 Random Glucose 63 Calcium 7.9 L D Magnesium Total Bilirubin 0.6 AST 17 ALT 39 H Alkaline Phosphatase 70 Total Protein 5.3 L Albumin 3.1 L TSH 0.81 Beta HCG, Quant Urine Color Urine Appearance Urine pH Ur Specific [place] Urine Protein Urine Glucose (UA) Urine Ketones Urine Blood Urine Nitrite Ur Leukocyte Esterase Urine RBC Urine WBC Ur Squamous Epith Cells Urine Bacteria Hyaline Casts Chlam trachomat DNA PCR NOT DETECTED COVID-19 (LU) COVID-19 Clin Com N.gonorrhoeae DNA (PCR) NOT DETECTED Blood Type Antibody Screen Procedures Date of Service Date of Service: 08/09/22 Progress Note: A&P Assessment and plan (1) Acute calculous cholecystitis: Status: Acute (2) First trimester : Status: Acute Plan heart tones 147 BPM in PACU Procedure, intraoperative findings and postoperative plan were discussed with Jero via rn night per patient request. Time Spent With Patient Time: Total time managing care of this patient today ____ minutes. Quality Stroke Does the patient have a stroke diagnosis?: No VTE Prior VTE?: No VTE Risk Level:: Surgical - moderate VTE Device Contraindication: N/A - Device Ordered VTE Drug Contraindication: Treatment Not Indicated
[2022-08-09] MEDS: Dextrose 5 % and Lactated Ring 1,000 ML 125 ML IVCONT ×2 (18:00→22:30)
[2022-08-09] MEDS: ondansetron HCL 4 MG/2 ML VIAL IVPUSH (18:11)
[2022-08-09] MEDS: Pyridoxine HCl (Vitamin B6) 50 MG TABLET 25 MG PO (18:11)
[2022-08-09] MEDS: Metoclopramide HCl 10 MG/2 ML VIAL IVPUSH (20:31)
[2022-08-10] MEDS: HYDROmorphone HCl 0.5 MG/0.5 ML SYRINGE 0.25 MG IVPUSH (01:18)
[2022-08-10 03:43] VITALS: BP 97/54; PULSE 57; RESP 16; TEMP 37; O2SAT 97
[2022-08-10] MEDS: Dextrose 5 % and Lactated Ring 1,000 ML 125 ML IVCONT ×3 (05:04→20:35)
[2022-08-10 07:26] LABS: MANUAL DIFF FLAG NO
[2022-08-10 07:45] LABS: Basophils Percent Auto 0.1 % (0-2); Hematocrit 28.5 % (37.0-47.0); Hemoglobin 9.9 g/dl (12.0-16.0); Imm Gran Abs Auto 0.03 X10*3/uL (0.00-0.03); Imm Gran Pct Auto 0.4 % (0.0-0.4); Lymphocytes Percent Auto 24.5 % (20-40); Mean Corpuscular HGB Conc 34.7 g/dl (31.0-35.0); Mean Corpuscular Hemoglobin 29.6 pg (27.0-33.0); Mean Corpuscular Volume 85.1 fL (80.0-98.0); Mean Platelet Volume 10.8 fL (9.4-12.3); Monocytes Absolute Auto 0.5 X10*3/uL (0.1-1.2); Monocytes Percent Auto 5.9 % (2-11); Neutrophils Absolute Auto 5.5 x10*3/uL (2.0-8.3); Neutrophils Percent Auto 69.1 % (45-73); Platelet Count 271 X10*3/uL (160-400); Red Blood Count 3.35 X10*6/uL (4.20-5.50); Red Cell Distribution Width 12.9 % (11.0-16.0)
[2022-08-10 08:00] VITALS: BP 115/64; PULSE 62; RESP 18; TEMP 36; O2SAT 96
[2022-08-10 08:47] LABS: Alanine Aminotransferase 41 U/L (0-31); Alkaline Phosphatase 64 U/L (39-117); Anion Gap 12 (12-20); Aspartate Amino Transferase 28 U/L (5-31); Bilirubin Total 0.7 mg/dL (0.0-1.0); Blood Urea Nitrogen < 3 mg/dL (9-16); Calcium 8.2 mg/dL (8.4-10.2); Carbon Dioxide 20 mmol/L (22-29); Chloride 104 mmol/L (96-108); Creatinine Clr Calc Pharmacy 138.5; Estimated Glomerular Filt Rate > 60; Glucose Random 112 mg/dL (60-115); Potassium 3.3 mmol/L (3.3-5.1); Sodium 133 mmol/L (135-145); Total Protein 5.2 g/dL (6.5-8.0)
[2022-08-10] MEDS: Metoclopramide HCl 10 MG/2 ML VIAL IVPUSH (09:19)
[2022-08-10] MEDS: Folic Acid 1 MG TABLET 0.5 MG PO (09:19)
--- NOTE | 2022-08-10 11:16 | P.PNGS_ITS ---
Subjective Subjective Date of Service: 08/10/22 Patient reports: nausea and vomiting Interval history: The patient is seen with the help of camp dining room attendant valery. Patient's significant other, Jero, is at the bedside. The patient is somnolent secondary to recent anti nausea medications. She reports substernal/epigastric pain that is then accompanied by nausea and vomiting. Per Dr. Combs, Zofran is being held and the patient is receiving Reglan and Phenergan. She is not tolerating clear liquids. Physical Exam Vital Signs: Vital Signs: Last Vital Signs Temp 96.8 F 08/10/22 08:00 Pulse 62 08/10/22 08:00 Resp 18 08/10/22 08:00 BP 115/64 08/10/22 08:00 Pulse Ox 96 08/10/22 08:00 O2 Del Method 08/10/22 08:00 BMI result Body Mass Index 22.7 On exam she is resting comfortably She is awake and communicative appropriately but sleepy Abdomen is soft with appropriate tenderness Objective Data Active Medications Fentanyl (Fentanyl Citrate/Pf 100 Mcg/2 Ml Vial) 50 mcg IVPUSH Q5M PRN; Protocol PRN Reason: Pain, Severe (Pain Scale 7-10) Folic Acid (Folic Acid 1 Mg Tablet) 0.5 mg PO DAILY [facility] Last Admin: 08/10/22 09:19 Dose: 0.5 mg Documented By: MANISH Hydromorphone HCl (Hydromorphone Hcl 1 Mg/Ml Syringe) 0.5 mg IVPUSH Q4H PRN; Protocol PRN Reason: Pain, Severe (Pain Scale 7-10) Last Admin: 08/09/22 13:27 Dose: 0.5 mg Documented By: YULIET Hydromorphone HCl (Hydromorphone Hcl 0.5 Mg/0.5 Ml Syringe) 0.25 mg IVPUSH Q2H PRN; Protocol PRN Reason: Pain, Moderate (Pain Scale 4-6 Last Admin: 08/10/22 01:18 Dose: 0.25 mg Documented By: ROSY Dextrose/Lactated Ringer's (D5lr) 1,000 mls @ 125 mls/hr IVCONT .Q8H [facility] Last Admin: 08/10/22 05:04 Dose: 125 mls/hr Documented By: ROSY Promethazine HCl 12.5 mg/ (Sodium Chloride) 50.5 mls @ 202 mls/hr IV Q4H PRN PRN Reason: Nausea and Vomiting Last Infusion: 08/09/22 22:27 Dose: 0 mls/hr Documented By: ROSY Metoclopramide HCl (Metoclopramide Hcl 10 Mg/2 Ml Vial) 10 mg IVPUSH Q8H PRN PRN Reason: Nausea Last Admin: 08/10/22 09:19 Dose: 10 mg Documented By: MANISH Oxycodone HCl (Oxycodone Hcl Immed Release 5 Mg Tablet) 5 mg PO ONCE PRN PRN Reason: Pain, Severe (Pain Scale 7-10) Pyridoxine HCl (Pyridoxine Hcl (Vitamin B6) 50 Mg Tablet) 25 mg PO Q8H [facility] Last Admin: 08/10/22 06:05 Dose: Not Given Documented By: ROSY Non-Admin Reason: pt very nauseous and now sleeping Sodium Chloride (0.9 % Sodium Chloride Flush 3 Ml Syringe) 3 ml IVFLUSH QSHIFT [facility] Last Admin: 08/10/22 07:10 Dose: Not Given Documented By: MANISH Non-Admin Reason: IV Running Labs 08/10/22 06:23 08/10/22 06:23 Labs: Laboratory Results - last 24 hr 08/09/22 08/09/22 08/10/22 05:59 10:32 06:23 MCV 85.1 MCH 29.6 MCHC 34.7 RDW 12.9 Plt Count 271 MPV 10.8 Immature Gran % (Auto) 0.4 Neut % (Auto) 69.1 Lymph % (Auto) 24.5 [place] % (Auto) 5.9 Eos % (Auto) 0.0 Baso % (Auto) 0.1 Lymph # (Auto) 2.0 [place] # (Auto) 0.5 Eos # (Auto) 0.0 Baso # (Auto) 0.0 Abs Immat Gran (auto) 0.03 Absolute Neuts (auto) 5.5 Absolute Nucleated RBC 0.000 Nucleated RBC % (auto) 0.0 Anion Gap Estim Creat Clear Calc Estimated GFR Random Glucose Calcium Total Bilirubin AST ALT Alkaline Phosphatase Total Protein Albumin TSH 0.81 Chlam trachomat DNA PCR NOT DETECTED N.gonorrhoeae DNA (PCR) NOT DETECTED 08/10/22 06:23 MCV MCH MCHC RDW Plt Count MPV Immature Gran % (Auto) Neut % (Auto) Lymph % (Auto) [place] % (Auto) Eos % (Auto) Baso % (Auto) Lymph # (Auto) [place] # (Auto) Eos # (Auto) Baso # (Auto) Abs Immat Gran (auto) Absolute Neuts (auto) Absolute Nucleated RBC Nucleated RBC % (auto) Anion Gap 12 Estim Creat Clear Calc 138.5 Estimated GFR > 60 Random Glucose 112 Calcium 8.2 L Total Bilirubin 0.7 AST 28 ALT 41 H Alkaline Phosphatase 64 Total Protein 5.2 L Albumin 3.0 L TSH Chlam trachomat DNA PCR N.gonorrhoeae DNA (PCR) Procedures Date of Service Date of Service: 08/10/22 Progress Note: A&P Assessment and plan (1) Vomiting: Status: Acute (2) Acute calculous cholecystitis: Status: Acute (3) First trimester : Status: Acute (4) Nausea & vomiting: Status: Acute Plan Keep the patient on clear liquids. I have ordered an MRCP for tomorrow to exclude choledocholithiasis. If there is no evidence of choledocholithiasis, will ask for Dr. Combs help regarding the patient's 1st trimester and nausea/vomiting. Time Spent With Patient Time: Total time managing care of this patient today ____ minutes. Quality Stroke Does the patient have a stroke diagnosis?: No VTE Prior VTE?: No VTE Risk Level:: Surgical - moderate VTE Device Contraindication: N/A - Device Ordered VTE Drug Contraindication: Treatment Not Indicated
[2022-08-10 15:38] VITALS: BP 101/57; PULSE 70; RESP 18; TEMP 37.3; O2SAT 97
--- NOTE | 2022-08-10 17:38 | PM.GYNPNOP ---
[employer] - Subjective Subjective Date of Service: 08/10/22 Interval history: The patient is doing well, ambulating, passed flatus, minimal abdominal pain. Not complaining of right upper quadrant pain any more, but she still has nausea and epigastric pain with heartburn. Vomited once at noon after eating a banana, since then the patient has been able to tolerate clear liquid diet without vomiting. Last Reglan dose was given at 09:15 a.m. with no additional antiemetic given to the patient since then. No pelvic cramping, vaginal bleeding or any other related concerns. heart rate postop was within normal. 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 Physical Exam Vitals Vital signs: Temp Pulse Resp BP Pulse Ox O2 Del Method 99.1 F 70 18 101/57 L 97 08/10/22 15:38 08/10/22 15:38 08/10/22 15:38 08/10/22 15:38 08/10/22 15:38 08/10/22 15:38 BMI result Body Mass Index 22.7 Abdomen Auscultation/Inspection/Palpation: Soft and Tenderness (Mild epigastric) [employer] - Prog Note: Results Labs 08/10/22 06:23 08/10/22 06:23 Labs: Laboratory Results - last 24 hr 08/10/22 08/10/22 06:23 06:23 WBC 8.0 RBC 3.35 L Hgb 9.9 L Hct 28.5 L MCV 85.1 MCH 29.6 MCHC 34.7 RDW 12.9 Plt Count 271 MPV 10.8 Immature Gran % (Auto) 0.4 Neut % (Auto) 69.1 Lymph % (Auto) 24.5 [place] % (Auto) 5.9 Eos % (Auto) 0.0 Baso % (Auto) 0.1 Lymph # (Auto) 2.0 [place] # (Auto) 0.5 Eos # (Auto) 0.0 Baso # (Auto) 0.0 Abs Immat Gran (auto) 0.03 Absolute Neuts (auto) 5.5 Absolute Nucleated RBC 0.000 Nucleated RBC % (auto) 0.0 Sodium 133 L Potassium 3.3 Chloride 104 Carbon Dioxide 20 L Anion Gap 12 BUN < 3 L Creatinine 0.44 L Estim Creat Clear Calc 138.5 Estimated GFR > 60 Random Glucose 112 Calcium 8.2 L Total Bilirubin 0.7 AST 28 ALT 41 H Alkaline Phosphatase 64 Total Protein 5.2 L Albumin 3.0 L [employer] - A/P (1) Vomiting: Status: Acute Assessment and Plan: Discussed with the patient the differential diagnosis of her vomiting includes but not limited to: related, GERD, choledocholithiasis (unlikely per Dr. Ireland) Switch Reglan to scheduled dosing 10 mg q.8 hours, start Pepcid 20 mg IV Q 12 hours, once nausea is improved , continue clear liquid diet and advance diet as tolerated, restart vitamin B6 25 mg p.o. q.8 hours. Folic acid 0.4 mg p.o. q.d.. (2) Acute calculous cholecystitis: Status: Acute (3) First trimester : Status: Acute (4) Nausea & vomiting: Status: Acute Assessment/Plan Procedure/Diagnosis: Procedures Operation Date: 08/09/22 12:30 Actual Procedure Side Surgeon p Cholecystectomy Laparoscopic Not Applicable Mich Ireland MD Time Spent With Patient Time: Total time managing care of this patient today ____ minutes. Quality Measures - LABOR CONTRACT ANALYST H&P VTE Prior VTE?: No VTE Risk Level:: Surgical - moderate VTE Device Contraindication: N/A - Device Ordered VTE Drug Contraindication: Treatment Not Indicated
[2022-08-10] MEDS: Famotidine/PF 20 MG/2 ML VIAL IVPUSH ×2 (18:31→20:36)
[2022-08-10] MEDS: Pyridoxine HCl (Vitamin B6) 50 MG TABLET 25 MG PO (18:31)
[2022-08-10 20:00] VITALS: BP 114/66; PULSE 70; RESP 18; TEMP 36.8; O2SAT 98
[2022-08-11] MEDS: Dextrose 5 % and Lactated Ring 1,000 ML 125 ML IVCONT (02:47)
[2022-08-11] MEDS: Metoclopramide HCl 10 MG/2 ML VIAL IVPUSH ×3 (02:51→20:25)
[2022-08-11] MEDS: Pyridoxine HCl (Vitamin B6) 50 MG TABLET 25 MG PO ×3 (02:53→18:28)
[2022-08-11 02:57] VITALS: BP 128/59; PULSE 75; RESP 18; TEMP 36.4; O2SAT 98
[2022-08-11 06:25] LABS: MANUAL DIFF FLAG NO
[2022-08-11 06:42] LABS: Basophils Percent Auto 0.1 % (0-2); Hematocrit 27.8 % (37.0-47.0); Hemoglobin 9.6 g/dl (12.0-16.0); Imm Gran Abs Auto 0.02 X10*3/uL (0.00-0.03); Imm Gran Pct Auto 0.3 % (0.0-0.4); Lymphocytes Absolute Auto 1.8 X10*3/uL (1.2-4.9); Mean Corpuscular HGB Conc 34.5 g/dl (31.0-35.0); Mean Corpuscular Hemoglobin 29.4 pg (27.0-33.0); Mean Platelet Volume 10.8 fL (9.4-12.3); Monocytes Absolute Auto 0.5 X10*3/uL (0.1-1.2); Monocytes Percent Auto 7.2 % (2-11); Neutrophils Absolute Auto 4.9 x10*3/uL (2.0-8.3); Neutrophils Percent Auto 67.4 % (45-73); Platelet Count 242 X10*3/uL (160-400); Red Blood Count 3.27 X10*6/uL (4.20-5.50); Red Cell Distribution Width 13.2 % (11.0-16.0); White Blood Count 7.2 X10*3/uL (4.8-10.8)
[2022-08-11 07:16] LABS: Alanine Aminotransferase 42 U/L (0-31); Alkaline Phosphatase 60 U/L (39-117); Anion Gap 10 (12-20); Aspartate Amino Transferase 26 U/L (5-31); Bilirubin Total 0.6 mg/dL (0.0-1.0); Blood Urea Nitrogen < 3 mg/dL (9-16); Calcium 8.2 mg/dL (8.4-10.2); Carbon Dioxide 21 mmol/L (22-29); Chloride 107 mmol/L (96-108); Creatinine Clr Calc Pharmacy 141.7; Estimated Glomerular Filt Rate > 60; Glucose Random 104 mg/dL (60-115); Potassium 3.1 mmol/L (3.3-5.1); Sodium 135 mmol/L (135-145); Total Protein 5.2 g/dL (6.5-8.0)
--- NOTE | 2022-08-11 07:44 | PM.PNGS ---
Subjective Subjective Date of Service: 08/11/22 Patient reports: nausea Interval history: The patient is seen with the help of interpretive services. She notes ongoing nausea and intermittent hiccups. She also continues to report diffuse abdominal complaints. She otherwise denies chest pain, difficulty breathing, shortness of breath or lower extremity pain Physical Exam Vital Signs: Vital Signs: Last Vital Signs Temp 97.5 F 08/11/22 02:57 Pulse 75 08/11/22 02:57 Resp 18 08/11/22 02:57 BP 128/59 L 08/11/22 02:57 Pulse Ox 98 08/11/22 02:57 O2 Del Method 08/11/22 02:57 BMI result Body Mass Index 22.7 On exam she is nontoxic She is somewhat fidgety Abdomen has expected incisional tenderness She is in no acute respiratory distress No palpable cords are present in her lower extremities Objective Data Active Medications Famotidine (Famotidine/Pf 20 Mg/2 Ml Vial) 20 mg IVPUSH BID [facility] Last Admin: 08/10/22 20:36 Dose: 20 mg Documented By: DELVIS Fentanyl (Fentanyl Citrate/Pf 100 Mcg/2 Ml Vial) 50 mcg IVPUSH Q5M PRN; Protocol PRN Reason: Pain, Severe (Pain Scale 7-10) Folic Acid (Folic Acid 1 Mg Tablet) 0.5 mg PO DAILY [facility] Last Admin: 08/10/22 09:19 Dose: 0.5 mg Documented By: MANISH Hydromorphone HCl (Hydromorphone Hcl 1 Mg/Ml Syringe) 0.5 mg IVPUSH Q4H PRN; Protocol PRN Reason: Pain, Severe (Pain Scale 7-10) Last Admin: 08/09/22 13:27 Dose: 0.5 mg Documented By: YULIET Hydromorphone HCl (Hydromorphone Hcl 0.5 Mg/0.5 Ml Syringe) 0.25 mg IVPUSH Q2H PRN; Protocol PRN Reason: Pain, Moderate (Pain Scale 4-6 Last Admin: 08/10/22 01:18 Dose: 0.25 mg Documented By: ROSY Dextrose/Lactated Ringer's (D5lr) 1,000 mls @ 125 mls/hr IVCONT .Q8H [facility] Last Infusion: 08/11/22 07:23 Dose: 125 mls/hr Documented By: KAREN Promethazine HCl 12.5 mg/ (Sodium Chloride) 50.5 mls @ 202 mls/hr IV Q4H PRN PRN Reason: Nausea and Vomiting Last Infusion: 08/09/22 22:27 Dose: 0 mls/hr Documented By: ROSY Metoclopramide HCl (Metoclopramide Hcl 10 Mg/2 Ml Vial) 10 mg IVPUSH Q8H PRN PRN Reason: Nausea Last Admin: 08/11/22 02:51 Dose: 10 mg Documented By: DELVIS Metoclopramide HCl (Metoclopramide Hcl 10 Mg/2 Ml Vial) 10 mg IVPUSH Q8H [facility] Oxycodone HCl (Oxycodone Hcl Immed Release 5 Mg Tablet) 5 mg PO ONCE PRN PRN Reason: Pain, Severe (Pain Scale 7-10) Pyridoxine HCl (Pyridoxine Hcl (Vitamin B6) 50 Mg Tablet) 25 mg PO Q8H [facility] Last Admin: 08/11/22 02:53 Dose: 25 mg Documented By: DELVIS Sodium Chloride (0.9 % Sodium Chloride Flush 3 Ml Syringe) 3 ml IVFLUSH QSHIFT [facility] Last Admin: 08/11/22 07:23 Dose: Not Given Documented By: KAREN Non-Admin Reason: IV Running Labs 08/11/22 06:07 08/11/22 06:07 Labs: Laboratory Results - last 24 hr 08/10/22 08/10/22 08/11/22 06:23 06:23 06:07 MCV 85.1 85.0 MCH 29.6 29.4 MCHC 34.7 34.5 RDW 12.9 13.2 Plt Count 271 242 MPV 10.8 10.8 Immature Gran % (Auto) 0.4 0.3 Neut % (Auto) 69.1 67.4 Lymph % (Auto) 24.[address] [place] % (Auto) 5.9 7.2 Eos % (Auto) 0.0 0.0 Baso % (Auto) 0.1 0.1 Lymph # (Auto) 2.[address] [place] # (Auto) 0.5 0.5 Eos # (Auto) 0.0 0.0 Baso # (Auto) 0.0 0.0 Abs Immat Gran (auto) 0.03 0.02 Absolute Neuts (auto) 5.5 4.9 Absolute Nucleated RBC 0.000 0.000 Nucleated RBC % (auto) 0.0 0.0 Anion Gap 12 Estim Creat Clear Calc 138.5 Estimated GFR > 60 Random Glucose 112 Calcium 8.2 L Total Bilirubin 0.7 AST 28 ALT 41 H Alkaline Phosphatase 64 Total Protein 5.2 L Albumin 3.0 L 08/11/22 06:07 MCV MCH MCHC RDW Plt Count MPV Immature Gran % (Auto) Neut % (Auto) Lymph % (Auto) [place] % (Auto) Eos % (Auto) Baso % (Auto) Lymph # (Auto) [place] # (Auto) Eos # (Auto) Baso # (Auto) Abs Immat Gran (auto) Absolute Neuts (auto) Absolute Nucleated RBC Nucleated RBC % (auto) Anion Gap 10 L Estim Creat Clear Calc 141.7 Estimated GFR > 60 Random Glucose 104 Calcium 8.2 L Total Bilirubin 0.6 AST 26 ALT 42 H Alkaline Phosphatase 60 Total Protein 5.2 L Albumin 3.0 L Microbiology Microbiology Results: Microbiology 08/09/22 Unknown Urine Culture - Final Urine clean catch - Urine covarrubias top No growth. Procedures Date of Service Date of Service: 08/11/22 Progress Note: A&P Assessment and plan (1) Nausea & vomiting: Status: Acute (2) Acute calculous cholecystitis: Status: Acute (3) First trimester : Status: Acute Plan Will change IV fluids to half-normal with 20mEq of K MRCP today. LFTs and white count do not suggest choledocholithiasis, however the patient's ongoing nausea remains an issue regarding discharge and will notify Dr. Garret hickey of patient's ongoing nausea Reassess post MRCP Trend labs Time Spent With Patient Time: Total time managing care of this patient today ____ minutes. Quality Stroke Does the patient have a stroke diagnosis?: No VTE Prior VTE?: No VTE Risk Level:: Surgical - moderate VTE Device Contraindication: N/A - Device Ordered VTE Drug Contraindication: Treatment Not Indicated
[2022-08-11 07:53] VITALS: BP 104/57; PULSE 68; RESP 16; TEMP 36.9; O2SAT 98
--- NOTE | 2022-08-11 08:21 | PM.GYNPNOP ---
BIOINFORMATICS SUPPORT SPECIALIST - Subjective Subjective Date of Service: 08/12/22 Interval history: The patient is doing well, ambulating, passed flatus, minimal abdominal pain. Complaining of diffuse abdominal distension, and nausea with heartburn. Vomited once at midnight , since then the patient has been able to tolerate clear liquid diet without vomiting and p.o. vitamin B6 and folic acid. On Reglan and pepcid schedule dosing. No pelvic cramping, vaginal bleeding or any other related concerns. The patient scheduled today for MRCP to rule out choledocholithiasis ART HISTORY PROFESSOR Physical Exam Vitals Vital signs: Temp Pulse Resp BP Pulse Ox O2 Del Method 98.5 F 68 16 104/57 L 98 08/11/22 07:53 08/11/22 07:53 08/11/22 07:53 08/11/22 07:53 08/11/22 07:53 08/11/22 07:53 BMI result Body Mass Index 22.7 Abdomen Auscultation/Inspection/Palpation: Soft, Non-distended and No tenderness BIOINFORMATICS SUPPORT SPECIALIST - Prog Note: Results Labs 08/11/22 06:07 08/11/22 06:07 Labs: Laboratory Results - last 24 hr 08/10/22 08/11/22 08/11/22 06:23 06:07 06:07 WBC 7.2 RBC 3.27 L Hgb 9.6 L Hct 27.8 L MCV 85.0 MCH 29.4 MCHC 34.5 RDW 13.2 Plt Count 242 MPV 10.8 Immature Gran % (Auto) 0.3 Neut % (Auto) 67.4 Lymph % (Auto) 25.0 [place] % (Auto) 7.2 Eos % (Auto) 0.0 Baso % (Auto) 0.1 Lymph # (Auto) 1.8 [place] # (Auto) 0.5 Eos # (Auto) 0.0 Baso # (Auto) 0.0 Abs Immat Gran (auto) 0.02 Absolute Neuts (auto) 4.9 Absolute Nucleated RBC 0.000 Nucleated RBC % (auto) 0.0 Sodium 133 L 135 Potassium 3.3 3.1 L Chloride 104 107 Carbon Dioxide 20 L 21 L Anion Gap 12 10 L BUN < 3 L < 3 L Creatinine 0.44 L 0.43 L Estim Creat Clear Calc 138.5 141.7 Estimated GFR > 60 > 60 Random Glucose 112 104 Calcium 8.2 L 8.2 L Total Bilirubin 0.7 0.6 AST 28 26 ALT 41 H 42 H Alkaline Phosphatase 64 60 Total Protein 5.2 L 5.2 L Albumin 3.0 L 3.0 L BIOINFORMATICS SUPPORT SPECIALIST - A/P (1) Nausea & vomiting: Status: Acute Assessment and Plan: After MRCP, advance diet to low-fat diet, KEEP on p.o. vitamin B6, IV Pepcid. If choledocholithiasis ruled out, nausea and vomiting is not improved will switch to a different anti emetic. Ambulate as frequently as possible to prevent thromboembolism (2) First trimester : Status: Acute Assessment and Plan: Stable no signs or symptoms of SAB Assessment/Plan Procedure/Diagnosis: Procedures Operation Date: 08/09/22 12:30 Actual Procedure Side Surgeon p Cholecystectomy Laparoscopic Not Applicable Mich Ireland MD Time Spent With Patient Time: Total time managing care of this patient today ____ minutes. Quality Measures - ART HISTORY PROFESSOR H&P VTE Prior VTE?: No VTE Risk Level:: Surgical - moderate VTE Device Contraindication: N/A - Device Ordered VTE Drug Contraindication: Treatment Not Indicated
[2022-08-11] MEDS: Famotidine/PF 20 MG/2 ML VIAL IVPUSH ×2 (08:29→20:25)
[2022-08-11] MEDS: Folic Acid 1 MG TABLET 0.5 MG PO (08:30)
--- NOTE | 2022-08-11 09:16 | HO.POSTANES ---
Post Anesthesia Evaluation Post Anesthesia Evaluation Vital Signs: Vital Signs Temp Pulse Resp BP Pulse Ox O2 Del Method 08/11/22 07:53 98.5 F 68 16 104/57 L 98 Room Air 08/11/22 02:57 97.5 F 75 18 128/59 L 98 Room Air Anesthesia: General Endotracheal-GETA Mental Status: Awake Pain Control: Satisfactory (ocaasional pain) Nausea/Vomiting: Mild Hydration: Adequate Anesthesia-Related Issues: No Anes. Related Issues
[2022-08-11 11:29] LABS: Amylase 87 U/L (28-100)
--- NOTE | 2022-08-11 13:29 | MHC.CM.PN ---
met with pt w/interpertator pt is not expected to need servcies when dcd pt is covid vax x 2 has own ride home
[2022-08-11 14:55] VITALS: BP 118/57; PULSE 106; RESP 16; TEMP 36.3; O2SAT 99
[2022-08-11 15:19] VITALS: BMI 22.7
--- NOTE | 2022-08-11 15:25 | MHC.CLN ---
NUTRITION DIET=REGULAR, LOW FAT. RECENT POOR INTAKE DUE TO VOMITING. ADDING ENSURE CLEAR TID (720 KCALS, 24 G PROTEIN) TO INCREASE/IMPROVE NUTRITIONAL INTAKE.
[2022-08-11 20:00] VITALS: BP 106/58; PULSE 65; RESP 18; TEMP 37; O2SAT 98
[2022-08-12 03:33] VITALS: BP 106/68; PULSE 89; RESP 18; TEMP 37; O2SAT 99
[2022-08-12] MEDS: Pyridoxine HCl (Vitamin B6) 50 MG TABLET 25 MG PO ×3 (03:37→18:06)
[2022-08-12] MEDS: Metoclopramide HCl 10 MG/2 ML VIAL IVPUSH (03:37)
[2022-08-12 07:03] VITALS: BP 112/64; PULSE 68; RESP 16; TEMP 36.3; O2SAT 98
[2022-08-12 07:39] LABS: MANUAL DIFF FLAG NO
[2022-08-12 07:47] LABS: Basophils Percent Auto 0.1 % (0-2); Eosinophils Percent Auto 0.1 % (0-4); Hematocrit 28.6 % (37.0-47.0); Hemoglobin 10.3 g/dl (12.0-16.0); Imm Gran Abs Auto 0.04 X10*3/uL (0.00-0.03); Imm Gran Pct Auto 0.5 % (0.0-0.4); Lymphocytes Absolute Auto 1.8 X10*3/uL (1.2-4.9); Lymphocytes Percent Auto 23.8 % (20-40); Mean Corpuscular Hemoglobin 30.7 pg (27.0-33.0); Mean Corpuscular Volume 85.4 fL (80.0-98.0); Mean Platelet Volume 10.9 fL (9.4-12.3); Monocytes Absolute Auto 0.5 X10*3/uL (0.1-1.2); Monocytes Percent Auto 6.5 % (2-11); Neutrophils Absolute Auto 5.1 x10*3/uL (2.0-8.3); Platelet Count 251 X10*3/uL (160-400); Red Blood Count 3.35 X10*6/uL (4.20-5.50); Red Cell Distribution Width 13.5 % (11.0-16.0); White Blood Count 7.4 X10*3/uL (4.8-10.8)
[2022-08-12 08:06] LABS: Alanine Aminotransferase 62 U/L (0-31); Albumin Level 3.3 g/dL (3.5-5.0); Alkaline Phosphatase 71 U/L (39-117); Anion Gap 12 (12-20); Aspartate Amino Transferase 40 U/L (5-31); Bilirubin Total 0.8 mg/dL (0.0-1.0); Blood Urea Nitrogen < 3 mg/dL (9-16); Calcium 8.3 mg/dL (8.4-10.2); Carbon Dioxide 17 mmol/L (22-29); Chloride 106 mmol/L (96-108); Creatinine Clr Calc Pharmacy 156.2; Estimated Glomerular Filt Rate > 60; Glucose Random 91 mg/dL (60-115); Potassium 3.3 mmol/L (3.3-5.1); Sodium 132 mmol/L (135-145); Total Protein 5.7 g/dL (6.5-8.0)
--- NOTE | 2022-08-12 08:09 | PM.GYNPNOP ---
CORRECTIONS CASEWORKER - Subjective Subjective Date of Service: 08/12/22 Interval history: The patient is doing well, ambulating, minimal abdominal pain. Still complaining of nausea with heartburn, vomited after dinner yesterday, but was able to keep some solid food down , bananas and clear liquid diet , tolerating p.o. vitamin B6 and folic acid. On Reglan and pepcid schedule dosing and Phenergan p.r.n. No pelvic cramping, vaginal bleeding or any other related concerns. MRCP done yesterday wnl REPAIRER RECREATIONAL VEHICLE Physical Exam Vitals Vital signs: Temp Pulse Resp BP Pulse Ox O2 Del Method 97.4 F 68 16 112/64 98 08/12/22 07:03 08/12/22 07:03 08/12/22 07:03 08/12/22 07:03 08/12/22 07:03 08/12/22 07:03 BMI result Body Mass Index 22.7 Abdomen Auscultation/Inspection/Palpation: Soft and No tenderness CORRECTIONS CASEWORKER - Prog Note: Results Labs 08/12/22 07:20 08/12/22 07:20 Labs: Laboratory Results - last 24 hr 08/11/22 08/12/22 08/12/22 11:07 07:20 07:20 WBC 7.4 RBC 3.35 L Hgb 10.3 L Hct 28.6 L MCV 85.4 MCH 30.7 MCHC 36.0 H RDW 13.5 Plt Count 251 MPV 10.9 Immature Gran % (Auto) 0.5 H Neut % (Auto) 69.0 Lymph % (Auto) 23.8 [place] % (Auto) 6.5 Eos % (Auto) 0.1 Baso % (Auto) 0.1 Lymph # (Auto) 1.8 [place] # (Auto) 0.5 Eos # (Auto) 0.0 Baso # (Auto) 0.0 Abs Immat Gran (auto) 0.04 H Absolute Neuts (auto) 5.1 Absolute Nucleated RBC 0.000 Nucleated RBC % (auto) 0.0 Sodium 132 L Potassium 3.3 Chloride 106 Carbon Dioxide 17 L Anion Gap 12 BUN < 3 L Creatinine 0.39 L Estim Creat Clear Calc 156.2 Estimated GFR > 60 Random Glucose 91 Calcium 8.3 L Total Bilirubin 0.8 AST 40 H ALT 62 H Alkaline Phosphatase 71 Total Protein 5.7 L Albumin 3.3 L Amylase 87 CORRECTIONS CASEWORKER - A/P (1) Nausea & vomiting: Status: Acute Assessment and Plan: 08:00 Will discontinue Reglan and Phenergan , start the patient on chlorpromazine 25 mg IV q.6 hours scheduled dosing and start p.o. challenge within 45 minutes, keep Pepcid IV schedule dose, Vit B6 and folate p.o., ambulate. 12:08 the patient received dose of Thorazine, the patient states that her nausea has resolved, she was able to keep regular diet and clear liquid down without vomiting. 15:28 the patient is doing well with no more nausea and/or vomiting, her heartburn has resolved, she had 2 regular meals without any vomiting. Will Hep-Lock the IV, convert chlorpromazine IV and Pepcid IV to chlorpromazine 10 mg p.o. Q 4 p.r.n. nausea /vomiting and Pepcid 20 mg p.o. b.i.d. p.r.n. heartburn, and try p.o. diet, if the patient nausea and vomiting/heartburn resumes will convert back to IV treatment (2) First trimester : Status: Acute Assessment/Plan Procedure/Diagnosis: Procedures Operation Date: 08/09/22 12:30 Actual Procedure Side Surgeon p Cholecystectomy Laparoscopic Not Applicable Mich Ireland MD Time Spent With Patient Time: Total time managing care of this patient today ____ minutes. Quality Measures - REPAIRER RECREATIONAL VEHICLE H&P VTE Prior VTE?: No VTE Risk Level:: Surgical - moderate VTE Device Contraindication: N/A - Device Ordered VTE Drug Contraindication: Treatment Not Indicated
--- NOTE | 2022-08-12 08:15 | P.PNGS_ITS ---
Subjective Subjective Date of Service: 08/12/22 Patient reports: still having pain and nausea Interval history: The patient is seen with the help of the hospitalist personnel quality assurance auditor. She endorses ongoing diffuse abdominal pain complaints nausea with breathing, nausea and vomiting with eating and that she is only tolerating certain foods. She otherwise denies pain in her chest or trouble breathing but notes nausea with breathing. Physical Exam Vital Signs: Vital Signs: Last Vital Signs Temp 97.4 F 08/12/22 07:03 Pulse 68 08/12/22 07:03 Resp 16 08/12/22 07:03 BP 112/64 08/12/22 07:03 Pulse Ox 98 08/12/22 07:03 O2 Del Method 08/12/22 07:03 BMI result Body Mass Index 22.7 Her abdomen is flat and nondistended she has appropriate incisional t enderness. Dressings are clean dry and intact Objective Data Active Medications Chlorpromazine HCl (Chlorpromazine Hcl 25 Mg Tablet) 25 mg PO Q4H [facility] Famotidine (Famotidine/Pf 20 Mg/2 Ml Vial) 20 mg IVPUSH BID [facility] Last Admin: 08/11/22 20:25 Dose: 20 mg Documented By: DELVIS Fentanyl (Fentanyl Citrate/Pf 100 Mcg/2 Ml Vial) 50 mcg IVPUSH Q5M PRN; Protocol PRN Reason: Pain, Severe (Pain Scale 7-10) Folic Acid (Folic Acid 1 Mg Tablet) 0.5 mg PO DAILY [facility] Last Admin: 08/11/22 08:30 Dose: 0.5 mg Documented By: KAREN Hydromorphone HCl (Hydromorphone Hcl 1 Mg/Ml Syringe) 0.5 mg IVPUSH Q4H PRN; Protocol PRN Reason: Pain, Severe (Pain Scale 7-10) Last Admin: 08/09/22 13:27 Dose: 0.5 mg Documented By: YULIET Hydromorphone HCl (Hydromorphone Hcl 0.5 Mg/0.5 Ml Syringe) 0.25 mg IVPUSH Q2H PRN; Protocol PRN Reason: Pain, Moderate (Pain Scale 4-6 Last Admin: 08/10/22 01:18 Dose: 0.25 mg Documented By: ROSY Potassium Chloride/Dextrose/Sod Cl (Kcl 20 Meq In 5% Dex/0.45% Sod) 1,000 meq in 50,000 mls @ 80 mls/hr IVCONT .Q24H [facility] Last Admin: 08/12/22 07:12 Dose: Not Given Documented By: KAREN Non-Admin Reason: IV Running Chlorpromazine HCl 25 mg/ (Sodium Chloride) 51 mls @ 51 mls/hr IV Q4H [facility] Metoclopramide HCl (Metoclopramide Hcl 10 Mg/2 Ml Vial) 10 mg IVPUSH Q8H [facility] Last Admin: 08/12/22 03:37 Dose: 10 mg Documented By: DELVIS Oxycodone HCl (Oxycodone Hcl Immed Release 5 Mg Tablet) 5 mg PO ONCE PRN PRN Reason: Pain, Severe (Pain Scale 7-10) Pyridoxine HCl (Pyridoxine Hcl (Vitamin B6) 50 Mg Tablet) 25 mg PO Q8H [facility] Last Admin: 08/12/22 03:37 Dose: 25 mg Documented By: DELVIS Sodium Chloride (0.9 % Sodium Chloride Flush 3 Ml Syringe) 3 ml IVFLUSH [facility] Last Admin: 08/12/22 07:12 Dose: Not Given Documented By: KAREN Non-Admin Reason: IV Running Sodium Chloride (0.9 % Sodium Chloride Flush 3 Ml Syringe) 3 ml IVFLUSH [facility] Last Admin: 08/12/22 07:12 Dose: Not Given Documented By: KAREN Non-Admin Reason: IV Running Labs 08/12/22 07:20 08/12/22 07:20 Labs: Laboratory Results - last 24 hr 08/11/22 08/12/22 08/12/22 11:07 07:20 07:20 MCV 85.4 MCH 30.7 MCHC 36.0 H RDW 13.5 Plt Count 251 MPV 10.9 Immature Gran % (Auto) 0.5 H Neut % (Auto) 69.0 Lymph % (Auto) 23.8 [place] % (Auto) 6.5 Eos % (Auto) 0.1 Baso % (Auto) 0.1 Lymph # (Auto) 1.8 [place] # (Auto) 0.5 Eos # (Auto) 0.0 Baso # (Auto) 0.0 Abs Immat Gran (auto) 0.04 H Absolute Neuts (auto) 5.1 Absolute Nucleated RBC 0.000 Nucleated RBC % (auto) 0.0 Anion Gap 12 Estim Creat Clear Calc 156.2 Estimated GFR > 60 Random Glucose 91 Calcium 8.3 L Total Bilirubin 0.8 AST 40 H ALT 62 H Alkaline Phosphatase 71 Total Protein 5.7 L Albumin 3.3 L Amylase 87 Procedures Date of Service Date of Service: 08/12/22 Progress Note: A&P Assessment and plan (1) Nausea & vomiting: Status: Acute (2) Acute calculous cholecystitis: Status: Acute (3) First trimester : Status: Acute Plan MRCP read is currently pending Patient's labs are not consistent with choledocholithiasis. Will still exclude and are awaiting MRCP reading. I have communicated with Dr. Combs regarding the patient's ongoing nausea and issues and inability to eat related to her first- trimester . Surgically, the patient is stable and should be ready for discharge later today, assuming she does not have choledocholithiasis of course. Await input from Dr. Combs Time Spent With Patient Time: Total time managing care of this patient today ____ minutes. Quality Stroke Does the patient have a stroke diagnosis?: No VTE Prior VTE?: No VTE Risk Level:: Surgical - moderate VTE Device Contraindication: N/A - Device Ordered VTE Drug Contraindication: Treatment Not Indicated
[2022-08-12] MEDS: Famotidine/PF 20 MG/2 ML VIAL IVPUSH (09:48)
[2022-08-12] MEDS: chlorproMAZINE HCl 25 MG in 0.9 % Sodium Chloride 50 ML 51 MG IV ×2 (09:49→13:52)
[2022-08-12] MEDS: Folic Acid 1 MG TABLET 0.5 MG PO (09:49)
--- NOTE | 2022-08-12 11:27 | PM.DS ---
DS: Providers Provider Date of Service: 08/13/22 Date of admission: 08/09/22 01:11 Primary care physician: None Physician Consults: 08/09/22 09:01 Consult to Obstetrics / Gynecology Stat Consulting Provider: Cain Combs Reason for consultation: biliary colic & 11 week Preg; pt wants to try to keep PG Has provider been notified: Yes DS: Diagnosis Discharge Diagnosis (1) Nausea & vomiting: Status: Acute (2) First trimester : Status: Acute (3) Acute calculous cholecystitis: Status: Acute DS: Summary Hospital Course Hospital Course: See admitting H and P for full details. Briefly, this 26-year-old woman presented with a 12 week intrauterine and both right upper quadrant pain that was unrelenting and suprapubic pain both associated with nausea and vomiting. Abdominal ultrasound initially showed gallstones with no evidence of gallbladder wall thickening, however after Dr. Combs was consulted, a repeat ultrasound to assess the intrauterine was performed and gallbladder wall thickening was noted consistent with early calculous cholecystitis. After discussion with Dr. Combs, a detailed discussion with the patient and her partner/father of the was undertaken and the inherent risks of loss were reviewed. The option of transfer was also discussed but declined. Patient underwent an uneventful laparoscopic cholecystectomy and was placed on clears postoperatively but continued to have ongoing problems with nausea and vomiting. Labs reflected no evidence of cholestasis or infection but given the situation, an MRCP was performed which was negative for any ductal dilation, significant fluid collections or ongoing hepatobiliary problems, so input from Dr. Combs was obtained regarding management of this patient who seems to have significant nausea from her . Patient and her partner report that she has a follow-up appointment with their OB and the importance of follow-up given her ongoing nausea was reviewed. Overall condition at the time of discharge on 08/13/22 is improved. Time Spent with Patient Time attestation: Total time managing care of this patient today ____ minutes. Discharge coordination time: Less than 30 minutes Quality: Safe Use of Opioids Does Pt have an Active Cancer Diagnosis on the Problem List?: No Quality: Stroke Does the patient have a stroke diagnosis?: No Physical Exam Vital Signs: Vital Signs: Last Vital Signs Temp 97.4 F 08/12/22 07:03 Pulse 68 08/12/22 07:03 Resp 16 08/12/22 07:03 BP 112/64 08/12/22 07:03 Pulse Ox 98 08/12/22 07:03 O2 Del Method 08/12/22 07:03 BMI result Body Mass Index 22.7 DS: Data Data Completed and Pending Pending studies at discharge: Pending at discharge 08/09/22 15:05 Surgical [PTH] Routine Labs on day of discharge: Laboratory Results - last 24 hr 08/11/22 08/12/22 08/12/22 11:07 07:20 07:20 WBC 7.4 RBC 3.35 L Hgb 10.3 L Hct 28.6 L MCV 85.4 MCH 30.7 MCHC 36.0 H RDW 13.5 Plt Count 251 MPV 10.9 Immature Gran % (Auto) 0.5 H Neut % (Auto) 69.0 Lymph % (Auto) 23.8 [place] % (Auto) 6.5 Eos % (Auto) 0.1 Baso % (Auto) 0.1 Lymph # (Auto) 1.8 [place] # (Auto) 0.5 Eos # (Auto) 0.0 Baso # (Auto) 0.0 Abs Immat Gran (auto) 0.04 H Absolute Neuts (auto) 5.1 Absolute Nucleated RBC 0.000 Nucleated RBC % (auto) 0.0 Sodium 132 L Potassium 3.3 Chloride 106 Carbon Dioxide 17 L Anion Gap 12 BUN < 3 L Creatinine 0.39 L Estim Creat Clear Calc 156.2 Estimated GFR > 60 Random Glucose 91 Calcium 8.3 L Total Bilirubin 0.8 AST 40 H ALT 62 H Alkaline Phosphatase 71 Total Protein 5.7 L Albumin 3.3 L Amylase 87 Discharge Plan Discharge Anticipated Discharge Date/Time: 08/10/22 12:00 Patient Disposition: Home, Self-Care Discharge Diagnosis: Acute calculous cholecystitis, 12 week intrauterine Referrals: Physician,None [Primary Care Provider] - 1 Week Mich Ireland MD [Physician] - 1 Week Discharge Medications: New chlorpromazine 10 mg Tablet 10 mg PO Q4H PRN (Reason: nausea and/or vomiting) Qty: 30 0RF famotidine 20 mg Tablet 20 mg PO BID PRN (Reason: Heartburn) Qty: 40 0RF pyridoxine (vitamin B6) 50 mg Tablet 25 mg PO Q8H Qty: 90 0RF folic acid 1 mg Tablet 0.5 mg PO DAILY Qty: 90 0RF Discontinued cephalexin 500 mg tablet 500 mg PO Q6H 7 Days Qty: 28 0RF 28-800 mg-mcg Tablet 1 tab PO DAILY promethazine 25 mg tablet 25 mg PO Q6H PRN (Reason: nausea and vomiting) Qty: 14 0RF Discharge Orders: Discharge Order (Routine); Ordered 08/13/22 Ordered By: Cain Combs Diet: Low fat Activity on Discharge: No heavy lifting Stand Alone Forms: Patient Portal Discharge page Activity Restrictions/Additional Instructions: You had a laparoscopic cholecystectomy performed by Dr. Ireland. It is normal to experience some neck or shoulder pain from the gas used to inflate your abdomen. It is also normal to have pain or discomfort in your abdomen/belly as well as at the trocar sites (small incisions). This discomfort will resolve over the next 1-3 days, however, if it gets progressively worse, if you should develop worsening pain, nausea, vomiting and cannot keep liquids down, chest pain, difficulty breathing or shortness of breath, fevers over 100F please report to the nearest emergency department. Unless otherwise directed by Dr. Ireland, you should resume taking your regular medications. Please contact your RAPID TRANSIT OPERATOR regarding your & ongoing nausea. You need close follow-up with your topper press operator. You are experiencing a significant amount of nausea related to your and need their guidance. If you develop crampy pelvic pain or vaginal bleeding, please report to the nearest emergency department for evaluation. As Dr. Ireland reviewed in the office, you must not lift more than 20 lb for the next 4 weeks. Strenuous activities can tear out your sutures and cause an incisional hernia that would require another operation. Activities to be avoided include: sports, running, bicycling, yoga, lifting more than 20 lb, digging, gardening, splitting/carrying wood, swimming, hiking uphill, and other activities. If you have questions regarding this specific activity, please check with Dr. Ireland. If your incisions become red, swollen, tender or draining pus, please contact Dr. Ireland or go to the nearest emergency department. Do not shower or bathe for 48 hours. If there are bandages on your incisions, remove them in 48 hours. Do not allow your bandages to become wet for 48 hours. Do not soak in a tub or swimming pool until your incisions have completely sealed, usually 2 or more weeks. After the dressings are removed in 48 hours, you will notice paper tapes called butterflies/Steri-Strips. These tapes will fall off on their own in 1-2 weeks. You do not need to apply another bandage unless your clothing irritates your incisions. If you need to place another Band-Aid on your incisions, be sure to wait until the Steri strip is dry. Please purchase [id number] stool softener known as Colace/docusate, 100 mg. Take 2 tablets with breakfast and the morning and 2 tablets in the evening after dinner until your bowels are moving and urine or longer taking narcotics. Please note that if you are not taking narcotics, the general anesthesia for the procedure can still cause constipation. If you experience diarrhea, stop taking the stool softener medicine. You can take [id number] Tylenol/acetaminophen for pain. You should also use ice packs to the operative site to help minimize pain and swelling for the first 3 days, or as needed afterwards. Unless there is a medical reason to avoid Tylenol, you should take 2 [id number] Tylenol every 6 hours for pain. Remember that the gallbladder helps to to digest fatty foods. If you eat fried foods; rich, creamy sauces; cheese; gravies or other such heavy, greasy foods, you will likely develop gas and bloating and diarrhea. To minimize this risk, eat a high protein, high-fiber, low-fat diet for the next few weeks. Care Plan Goals: Postoperative healing; monitor Health Concerns: Postoperative healing; monitor Plan of Treatment: Postoperative healing; follow-up with RAPID TRANSIT OPERATOR for Assessment: Acute calculous cholecystitis; 12 week intrauterine Discharge Date/Time: 08/13/22 11:00
--- NOTE | 2022-08-12 14:32 | MHC.CM.PN ---
Pt likely to d/c today - waiting for order: Pt will contact her family for transportation and will not require any services
[2022-08-12 15:45] VITALS: BP 97/54; PULSE 93; RESP 18; TEMP 37.1; O2SAT 98
[2022-08-12] MEDS: chlorproMAZINE HCl 10 MG TABLET PO ×2 (18:06→21:43)
[2022-08-12 20:00] VITALS: BP 100/68; PULSE 74; TEMP 36.7; O2SAT 97
[2022-08-12] MEDS: Famotidine 20 MG TABLET PO (21:44)
[2022-08-13 04:00] VITALS: BP 94/51; PULSE 74; RESP 18; TEMP 36.3; O2SAT 99
[2022-08-13] MEDS: Pyridoxine HCl (Vitamin B6) 50 MG TABLET 25 MG PO (04:32)
[2022-08-13 07:47] VITALS: BP 98/54; PULSE 66; RESP 18; TEMP 36.8; O2SAT 98
[2022-08-13] MEDS: Folic Acid 1 MG TABLET 0.5 MG PO (08:54)
--- NOTE | 2022-08-13 09:03 | PM.GYNPNOP ---
SENIOR EMBEDDED SOFTWARE ENGINEER - Subjective Subjective Date of Service: 08/13/22 Interval history: The patient is doing well, ambulating, no abdominal pain. No nausea or heartburn, no vomiting after meals since yesterday, but was able to keep some solid food down, tolerating p.o. vitamin B6 and folic acid. On chlopromazine and pepcid po p.r.n. No pelvic cramping, vaginal bleeding or any other related concerns. FINISH CLEANER Physical Exam Vitals Vital signs: Temp Pulse Resp BP Pulse Ox O2 Del Method 98.3 F 66 18 98/54 L 98 08/13/22 07:47 08/13/22 07:47 08/13/22 07:47 08/13/22 07:47 08/13/22 07:47 08/13/22 07:47 BMI result Body Mass Index 22.7 SENIOR EMBEDDED SOFTWARE ENGINEER - Prog Note: Results Labs 08/12/22 07:20 08/12/22 07:20 SENIOR EMBEDDED SOFTWARE ENGINEER - A/P (1) Nausea & vomiting: Status: Acute Assessment and Plan: will d/c home on po chlorpromazine 10 mg po q 4 prn n/v pepcid 20 mg po bid prn heartburn, vit b6 po , folic acid po. fu in 1 week with obgyn, pt has an apt ascheduled baystste on 08/20 , fu with Dr Ireland postop visit. instruction to call or come back to the ER in case of n/v, vaginal bleeidng, pelvic cramping, temp>100.4. All questions answered the pt verbalized understanding. All communication was through certified [facility] interpreter for the deaf. (2) First trimester : Status: Acute Assessment/Plan Procedure/Diagnosis: Procedures Operation Date: 08/09/22 12:30 Actual Procedure Side Surgeon p Cholecystectomy Laparoscopic Not Applicable Mich Ireland MD Time Spent With Patient Time: Total time managing care of this patient today ____ minutes. Quality Measures - FINISH CLEANER H&P VTE Prior VTE?: No VTE Risk Level:: Surgical - moderate VTE Device Contraindication: N/A - Device Ordered VTE Drug Contraindication: Treatment Not Indicated
--- NOTE | 2022-08-13 09:23 | MHC.CM.PN ---
Patient has been medically cleared for dc to home today, self care.
== END 2022-08-13 11:00 | disposition home or self-care (01) | DRG 547 ==
LOC: HO.ED 08-09 02:44 → HO.EDOVER 08-09 03:38 → HO.S3 08-09 14:44
PROVIDERS: Obstetrics & Gynecology; Physician Assistant Medical; Admitting Provider Surgery; Emergency Provider Internal Medicine; Visit Provider Surgery
PROC: 0FT44ZZ Resection of Gallbladder, Percutaneous Endoscopic Approach (ICD-10-PCS; CPT 47562; principal; 2022-08-09 12:30)
DX: O99.611 Diseases of the digestive system complicating pregnancy, first trimester (principal); K80.00 Calculus of gallbladder with acute cholecystitis without obstruction; Z3A.12 12 weeks gestation of pregnancy; Z20.822 Contact with and (suspected) exposure to COVID-19; Z79.899 Other long term (current) drug therapy
CPT/HCPCS: 0353U; 36415; 71046; 74181; 76705; 76801; 80053; 81001; 82150; 83735; 84443; 84702; 85025; 86850; 86900; 86901; 87086; 87635; 88304; 93005; 96361; 96374; 96375; 99284; 99285; J0131; J0690; J1170; J2270; J2405; J2550; J2765; J3230; Q9967

== ENCOUNTER 2022-08-15 16:22 | Emergency (ER) | payer OTHER, SELFPAY ==
--- NOTE | ~2022-08-15 | US_ITS ---
EXAMINATION: US ABDOMEN LIMITED CLINICAL INFORMATION: Abdominal pain.. COMPARISON: MRCP 08/11/2022. Ultrasound abdomen 08/08/2022, 07/19/2022 TECHNIQUE: Real-time imaging of the right upper quadrant abdominal viscera. Color Doppler exam used. FINDINGS: PANCREAS: Normal. LIVER: Normal. The liver is normal in size. The liver contour is normal. Parenchymal echogenicity is normal. No focal hepatic lesion. There is no intrahepatic biliary duct dilatation seen. GALLBLADDER: Status post cholecystectomy COMMON BILE DUCT: Normal in caliber measuring 0.2 cm in diameter. RIGHT KIDNEY: Normal. No hydronephrosis. No renal calculi or focal parenchymal lesions. The kidney measures 9.1 cm in maximum dimension. FREE FLUID: None. US/US abdomen limited IMPRESSION: Status post cholecystectomy. No acute abnormality of the right upper quadrant.
--- NOTE | ~2022-08-15 | US_ITS ---
EXAMINATION: ULTRASOUND PELVIC, limited CLINICAL INFORMATION: Abdominal pain. . Evaluate heart rate COMPARISON: Obstetrical ultrasound 08/09/2022, 07/19/2022 TECHNIQUE: Transabdominal imaging. Spectral Doppler and color Doppler exam was utilized. LMP: 05/16/2022. Gestational age by LMP 13 weeks 0 days. GREG 02/20/2023 FINDINGS: UTERUS: Single intrauterine gestation. There is motion and cardiac activity. heart rate 153 bpm. ADNEXA: Right and left ovaries are normal in size and contour. Vascular flow was not assessed. Right Ovary: 2.9 x 2.1 x 1.6 cm Left Ovary: 1.9 x 0.9 x 1 cm Cul-de-sac: No Fluid US/US OB limited IMPRESSION: Single intrauterine gestation. There is motion and cardiac activity. heart rate 153 bpm.
[2022-08-15 16:44] VITALS: BP 124/65; PULSE 89; RESP 20; TEMP 37.1; O2SAT 98; BMI 16.8
--- NOTE | 2022-08-15 16:44 | ED.ABDPAIN ---
HPI - Abdominal Pain General Chief Complaint: Abdominal Pain <RAMOS [place] - Last Filed: 08/15/22 16:49> Stated Complaint: vomiting/ body aches/ dizziness <RAMOS [place] - Last Filed: 08/15/22 16:49> Time Seen by Provider: 08/15/22 23:29 <RAMOS [place] - Last Filed: 08/15/22 16:49> Source: patient <Sherman Ellis MD - Last Filed: 08/16/22 02:59> Mode of arrival: ambulatory <Sherman Ellis MD - Last Filed: 08/16/22 02:59> Limitations: no limitations <Sherman Ellis MD - Last Filed: 08/16/22 02:59> History of Present Illness HPI narrative: 26-year-old female, presents with nausea, vomiting, congestion. Symptoms have been ongoing. She describes her symptoms as severe. Can not be assisted with chest pain when she is vomiting. She has minimal to no abdominal pain at this time. She denies any diarrhea. There has been nonbilious nonbloody emesis. She is taking a vitamin for the nausea and vomiting which is not improving her symptoms. She denies any fevers or chills. There are no clear relieving or exacerbating features. Patient is currently unable to tolerate oral intake. She denies any sick contacts. The abdominal pain is generalized. Does not radiate. Again there are no clear relieving or exacerbating features. It is associated with nausea vomiting <Sherman Ellis MD - Last Filed: 08/16/22 02:59> Related Data Home Medications: Previous Rx's Medication Instructions Recorded chlorpromazine 10 mg tablet 10 mg PO Q4H PRN nausea and/or 08/13/22 vomiting #30 tabs famotidine 20 mg tablet 20 mg PO BID PRN Heartburn #40 tabs 08/13/22 folic acid 1 mg tablet 0.5 mg PO DAILY #90 tabs 08/13/22 doxylamine 10 mg-pyridoxine (vit 1 tab PO DAILY #14 tabs 08/16/22 B6) 10 mg tablet,delayed release (Diclegis) <RAMOS [place] Last Filed: 08/15/22 16:49> Allergies/Adverse Reactions: Allergies Allergy/AdvReac Type Severity Reaction Status Date / Time No Known Allergies Allergy Verified 08/08/22 17:59 <RAMOS [place] - Last Filed: 08/15/22 16:49> Review of Systems Review of Systems CONSTITUTIONAL: Denies weight loss, fever and chills. HEENT: Denies changes in vision and hearing. RESPIRATORY: Denies SOB and cough. CV: Denies palpitations no CP. GI: + abdominal pain, nausea, vomiting no diarrhea. : Denies dysuria and urinary frequency. MSK: Denies myalgia and joint pain. SKIN: Denies rash and pruritus. NEUROLOGICAL: Denies headache and syncope. PSYCHIATRIC: Denies recent changes in mood. Denies anxiety and depression. All other ROS are negative unless in HPI <Sherman Ellis MD - Last Filed: 08/16/22 02:59> PMFSH Past Medical History Medical History: Medical History Cholecystitis <RAMOS [place] - Last Filed: 08/15/22 16:49> Social History Social History: Social History Household Members: Spouse and Family Housing: Apartment Do you presently have visiting nurse or other home services: No Alcohol intake: never Patient Tobacco Use Status: Never used Tobacco Smoked in Last 30 Days: No Use of substances other than those prescribed or required for medical reasons: No Advance Directives: No Advance Directives Information Provided: No Patient : Yes service: No <RAMOS [place] - Last Filed: 08/15/22 16:49> Physical Exam ED Vital Signs: Vital Signs - 24 hr 08/15/22 16:44 08/15/22 23:14 08/16/22 01:21 Temperature 98.8 F 98.9 F Pulse Rate 89 74 72 Respiratory Rate 20 20 16 Blood Pressure 124/65 105/70 103/57 L Pulse Oximetry 98 98 96 Oxygen Delivery Method Room Air Room Air Room Air BMI result Body Mass Index 16.8 <RAMOS [place] - Last Filed: 08/15/22 16:49> Vital Signs - 24 hr 08/15/22 16:44 08/15/22 23:14 08/16/22 01:21 Temperature 98.8 F 98.9 F Pulse Rate 89 74 72 Respiratory Rate 20 20 16 Blood Pressure 124/65 105/70 103/57 L Pulse Oximetry 98 98 96 Oxygen Delivery Method Room Air Room Air Room Air BMI result Body Mass Index 16.8 GEN: Well developed, no acute distress, alert, oriented HEENT: Normocephalic, atraumatic, normal external ears, nose appears normal, no oropharyngeal edema or exudates Eyes: Normal to appearance Neck: Supple, no lymphadenopathy Respiratory: Talks in complete sentences, no respiratory distress, clear to auscultation bilaterally Cardiovascular: Regular rate and rhythm, no murmurs rubs or gallops Abdomen: Soft, nontender, nondistended, no guarding, no rebound Back: No CVA tenderness Extremities: No clubbing cyanosis or edema Neurologic: No focal neurologic deficits, cranial nerves 2-12 intact, strength is 5/5 bilaterally, gait normal Skin: No rash <Sherman Ellis MD - Last Filed: 08/16/22 02:59> Course Course Course Narrative: ZANDER-16:45PM - 26yoF [id number] who is currently 12 weeks currently being followed by OBGYN at [facility] who is recently admitted and discharged here on 08/09/2022 until 08/12/22 after her gallbladder was removed for acute cholecystitis by Dr. Ireland who is presenting to the ER with complaints of worsening nausea/vomiting with abdominal pain for the past 2-3 days worse today. Reports she did feel little bit better after she was discharged here. Although soon after she started having all of the symptoms. Plan: Labs, UA, abdominal ultrasound, COVID/RSV/flu swab and patient will be sent back to the waiting room to be evaluated in the ED. <RAMOS [place] - Last Filed: 08/15/22 16:49> Reevaluation(s) Reevaluation #1: 26-year-old female, G1, P0 presents with intractable nausea vomiting. Examination is benign. Abdomen is soft and nontender. She is approximately 13 weeks . Her lab work and ultrasound are complete. She is still quite symptomatic. Will give her intravenous fluids and medications and re-evaluate. <Sherman Ellis MD - Last Filed: 08/16/22 02:59> Time: 23:44 <Sherman Ellis MD - Last Filed: 08/16/22 02:59> Reevaluation #2: Patient still reports nausea. She did receive Reglan. Will try Zofran and re-evaluate. <Sherman Ellis MD - Last Filed: 08/16/22 02:59> Time: 00:48 <Sherman Ellis MD - Last Filed: 08/16/22 02:59> Reevaluation #3: Patient was able to hold down fluids. She is nervous to go home. 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 She is currently . Abdomen is benign although she does complain of some intermittent chest and abdominal pain. Patient have an ultrasound of the abdomen as well as a -related ultrasound to make sure she has a viable intrauterine . Appears she also has a recent history of acalculous cholecystitis. Will obtain an ultrasound to make sure there is no active inflammatory changes. Will treat patient symptomatically and re-evaluate. <Sherman Ellis MD - Last Filed: 08/16/22 02:59> Differential Diagnosis Differential Diagnoses: The differential diagnosis associated with the presentation includes (Intractable nausea vomiting, hyperemesis gravidarum, cholecystitis, gastroenteritis, irritable bowel syndrome, electrolyte abnormality) <Sherman Ellis MD - Last Filed: 08/16/22 02:59> Hyperemesis <Sherman Ellis MD - Last Filed: 08/16/22 02:59> Admission/Observation Consideration of admission/observation: Escalation of care including admission/observation considered <Sherman Ellis MD - Last Filed: 08/16/22 02:59> Lab Data [facility] Lab Attestation statement: I reviewed the patient's lab results. <Sherman Ellis MD - Last Filed: 08/16/22 02:59> Result Diagrams: 08/15/22 18:12 08/15/22 18:12 <RAMOS [place] - Last Filed: 08/15/22 16:49> Labs: Lab Results 08/15/22 08/15/22 08/15/22 Range/Units 18:12 18:12 18:12 WBC 6.7 (4.8-10.8) X10*3/uL RBC 4.17 L D (4.20-5.50) X10*6/uL Hgb 12.5 D (12.0-16.0) g/dl Hct 35.6 L D (37.0-47.0) % MCV 85.4 (80.0-98.0) fL MCH 30.0 (27.0-33.0) pg MCHC 35.1 H (31.0-35.0) g/dl RDW 13.6 (11.0-16.0) % Plt Count 300 (160-400) X10*3/uL MPV 11.0 (9.4-12.3) fL Immature Gran % (Auto) 0.3 (0.0-0.4) % Neut % (Auto) 86.7 H (45-73) % Lymph % (Auto) 9.9 L (20-40) % [place] % (Auto) 3.0 (2-11) % Eos % (Auto) 0.0 (0-4) % Baso % (Auto) 0.1 (0-2) % Lymph # (Auto) 0.7 L (1.2-4.9) X10*3/uL [place] # (Auto) 0.2 (0.1-1.2) X10*3/uL Eos # (Auto) 0.0 (0.0-0.4) X10*3/uL Baso # (Auto) 0.0 (0.0-0.2) X10*3/uL Abs Immat Gran (auto) 0.02 (0.00-0.03) X10*3/uL Absolute Neuts (auto) 5.8 (2.0-8.3) x10*3/uL Absolute Nucleated RBC 0.000 (0.0-0.012) X10*3/uL Nucleated RBC % (auto) 0.0 (0.0-0.2) /100WBC PT 16.2 H (10.0-13.1) SEC INR 1.4 H (0.9-1.1) Sodium 132 L (135-145) mmol/L Potassium 4.0 D (3.3-5.1) mmol/L Chloride 102 (96-108) mmol/L Carbon Dioxide 20 L (22-29) mmol/L Anion Gap 14 (12-20) BUN 7 L (9-16) mg/dL Creatinine 0.49 L (0.5-1.4) mg/dL Estim Creat Clear Calc 116.6 Estimated GFR > 60 Random Glucose 86 (60-115) mg/dL Calcium 9.5 D (8.4-10.2) mg/dL Magnesium 2.0 (1.6-2.6) mg/dL Total Bilirubin 1.0 (0.0-1.0) mg/dL AST 35 H (5-31) U/L ALT 87 H (0-31) U/L Alkaline Phosphatase 114 (39-117) U/L Total Protein 7.3 (6.5-8.0) g/dL Albumin 4.2 (3.5-5.0) g/dL Lipase 26 (8-78) U/L Beta HCG, Quant 38361 mIU/mL Influenza Type A (PCR) (Negative) Influenza Type B (PCR) (Negative) RSV RNA Qual (PCR) (Negative) SARS-CoV-2 RNA (RT-PCR) (Negative) 08/15/22 Range/Units 18:12 WBC (4.8-10.8) X10*3/uL RBC (4.20-5.50) X10*6/uL Hgb (12.0-16.0) g/dl Hct (37.0-47.0) % MCV (80.0-98.0) fL MCH (27.0-33.0) pg MCHC (31.0-35.0) g/dl RDW (11.0-16.0) % Plt Count (160-400) X10*3/uL MPV (9.4-12.3) fL Immature Gran % (Auto) (0.0-0.4) % Neut % (Auto) (45-73) % Lymph % (Auto) (20-40) % [place] % (Auto) (2-11) % Eos % (Auto) (0-4) % Baso % (Auto) (0-2) % Lymph # (Auto) (1.2-4.9) X10*3/uL [place] # (Auto) (0.1-1.2) X10*3/uL Eos # (Auto) (0.0-0.4) X10*3/uL Baso # (Auto) (0.0-0.2) X10*3/uL Abs Immat Gran (auto) (0.00-0.03) X10*3/uL Absolute Neuts (auto) (2.0-8.3) x10*3/uL Absolute Nucleated RBC (0.0-0.012) X10*3/uL Nucleated RBC % (auto) (0.0-0.2) /100WBC PT (10.0-13.1) SEC INR (0.9-1.1) Sodium (135-145) mmol/L Potassium (3.3-5.1) mmol/L Chloride (96-108) mmol/L Carbon Dioxide (22-29) mmol/L Anion Gap (12-20) BUN (9-16) mg/dL Creatinine (0.5-1.4) mg/dL Estim Creat Clear Calc Estimated GFR Random Glucose (60-115) mg/dL Calcium (8.4-10.2) mg/dL Magnesium (1.6-2.6) mg/dL Total Bilirubin (0.0-1.0) mg/dL AST (5-31) U/L ALT (0-31) U/L Alkaline Phosphatase (39-117) U/L Total Protein (6.5-8.0) g/dL Albumin (3.5-5.0) g/dL Lipase (8-78) U/L Beta HCG, Quant mIU/mL Influenza Type A (PCR) NEGATIVE (Negative) Influenza Type B (PCR) NEGATIVE (Negative) RSV RNA Qual (PCR) NEGATIVE (Negative) SARS-CoV-2 RNA (RT-PCR) NEGATIVE (Negative) <RAMOS [place] - Last Filed: 08/15/22 16:49> Lab Results 08/15/22 08/15/22 08/15/22 Range/Units 18:12 18:12 18:12 WBC 6.7 (4.8-10.8) X10*3/uL RBC 4.17 L D (4.20-5.50) X10*6/uL Hgb 12.5 D (12.0-16.0) g/dl Hct 35.6 L D (37.0-47.0) % MCV 85.4 (80.0-98.0) fL MCH 30.0 (27.0-33.0) pg MCHC 35.1 H (31.0-35.0) g/dl RDW 13.6 (11.0-16.0) % Plt Count 300 (160-400) X10*3/uL MPV 11.0 (9.4-12.3) fL Immature Gran % (Auto) 0.3 (0.0-0.4) % Neut % (Auto) 86.7 H (45-73) % Lymph % (Auto) 9.9 L (20-40) % [place] % (Auto) 3.0 (2-11) % Eos % (Auto) 0.0 (0-4) % Baso % (Auto) 0.1 (0-2) % Lymph # (Auto) 0.7 L (1.2-4.9) X10*3/uL [place] # (Auto) 0.2 (0.1-1.2) X10*3/uL Eos # (Auto) 0.0 (0.0-0.4) X10*3/uL Baso # (Auto) 0.0 (0.0-0.2) X10*3/uL Abs Immat Gran (auto) 0.02 (0.00-0.03) X10*3/uL Absolute Neuts (auto) 5.8 (2.0-8.3) x10*3/uL Absolute Nucleated RBC 0.000 (0.0-0.012) X10*3/uL Nucleated RBC % (auto) 0.0 (0.0-0.2) /100WBC PT 16.2 H (10.0-13.1) SEC INR 1.4 H (0.9-1.1) Sodium 132 L (135-145) mmol/L Potassium 4.0 D (3.3-5.1) mmol/L Chloride 102 (96-108) mmol/L Carbon Dioxide 20 L (22-29) mmol/L Anion Gap 14 (12-20) BUN 7 L (9-16) mg/dL Creatinine 0.49 L (0.5-1.4) mg/dL Estim Creat Clear Calc 116.6 Estimated GFR > 60 Random Glucose 86 (60-115) mg/dL Calcium 9.5 D (8.4-10.2) mg/dL Magnesium 2.0 (1.6-2.6) mg/dL Total Bilirubin 1.0 (0.0-1.0) mg/dL AST 35 H (5-31) U/L ALT 87 H (0-31) U/L Alkaline Phosphatase 114 (39-117) U/L Total Protein 7.3 (6.5-8.0) g/dL Albumin 4.2 (3.5-5.0) g/dL Lipase 26 (8-78) U/L Beta HCG, Quant 62345 mIU/mL Influenza Type A (PCR) (Negative) Influenza Type B (PCR) (Negative) RSV RNA Qual (PCR) (Negative) SARS-CoV-2 RNA (RT-PCR) (Negative) 08/15/22 Range/Units 18:12 WBC (4.8-10.8) X10*3/uL RBC (4.20-5.50) X10*6/uL Hgb (12.0-16.0) g/dl Hct (37.0-47.0) % MCV (80.0-98.0) fL MCH (27.0-33.0) pg MCHC (31.0-35.0) g/dl RDW (11.0-16.0) % Plt Count (160-400) X10*3/uL MPV (9.4-12.3) fL Immature Gran % (Auto) (0.0-0.4) % Neut % (Auto) (45-73) % Lymph % (Auto) (20-40) % [place] % (Auto) (2-11) % Eos % (Auto) (0-4) % Baso % (Auto) (0-2) % Lymph # (Auto) (1.2-4.9) X10*3/uL [place] # (Auto) (0.1-1.2) X10*3/uL Eos # (Auto) (0.0-0.4) X10*3/uL Baso # (Auto) (0.0-0.2) X10*3/uL Abs Immat Gran (auto) (0.00-0.03) X10*3/uL Absolute Neuts (auto) (2.0-8.3) x10*3/uL Absolute Nucleated RBC (0.0-0.012) X10*3/uL Nucleated RBC % (auto) (0.0-0.2) /100WBC PT (10.0-13.1) SEC INR (0.9-1.1) Sodium (135-145) mmol/L Potassium (3.3-5.1) mmol/L Chloride (96-108) mmol/L Carbon Dioxide (22-29) mmol/L Anion Gap (12-20) BUN (9-16) mg/dL Creatinine (0.5-1.4) mg/dL Estim Creat Clear Calc Estimated GFR Random Glucose (60-115) mg/dL Calcium (8.4-10.2) mg/dL Magnesium (1.6-2.6) mg/dL Total Bilirubin (0.0-1.0) mg/dL AST (5-31) U/L ALT (0-31) U/L Alkaline Phosphatase (39-117) U/L Total Protein (6.5-8.0) g/dL Albumin (3.5-5.0) g/dL Lipase (8-78) U/L Beta HCG, Quant mIU/mL Influenza Type A (PCR) NEGATIVE (Negative) Influenza Type B (PCR) NEGATIVE (Negative) RSV RNA Qual (PCR) NEGATIVE (Negative) SARS-CoV-2 RNA (RT-PCR) NEGATIVE (Negative) <Sherman Ellis MD - Last Filed: 08/16/22 02:59> Independent Interpretation I performed an independent interpretation of an: Ultrasound (Ultrasound abdomen no acute abnormality, ultrasound gestational, IUP, heart rate approximately 153) <Sherman Ellis MD - Last Filed: 08/16/22 02:59> Radiology Impression Discussion of test interpretation with radiology: I have reviewed the radiologist's reading. (IMPRESSION: Single intrauterine gestation. There is motion and cardiac activity. heart rate 153 bpm. Dictated By:Jason Golden MDSigned By:<Electronically signed by Jason Golden MD in [place]>08/15/22 1831, MPRESSION: Status post cholecystectomy. No acute abnormality of the right uppe) <Sherman Ellis MD - Last Filed: 08/16/22 02:59> External Record Review External record reviewed: Office record (OBGYN from August 13 of August 12) <Sherman Ellis MD - Last Filed: 08/16/22 02:59> Medications Administered Discontinued Medications Generic Name Dose Route Start Last Admin Trade Name Freq PRN Reason Stop Dose Admin Diphenhydramine HCl 25 mg 08/15/22 23:47 08/15/22 23:58 Diphenhydramine Hcl 50 Mg/Ml Vial IVPUSH 08/15/22 23:48 25 mg ONCE ONE Administration Famotidine 20 mg 08/15/22 23:47 08/15/22 23:59 Famotidine/Pf 20 Mg/2 Ml Vial IVPUSH 08/15/22 23:48 20 mg ONCE ONE Administration Sodium Chloride 1,000 mls @ 999 mls/hr 08/15/22 23:45 08/16/22 01:17 Ns IV 08/16/22 00:45 Infused .Q1H1M ALLAN Infusion Metoclopramide HCl 10 mg 08/15/22 23:47 08/15/22 23:58 Metoclopramide Hcl 10 Mg/2 Ml Vial IVPUSH 08/15/22 23:48 10 mg ONCE ONE Administration Ondansetron HCl 4 mg 08/16/22 00:48 08/16/22 01:18 Ondansetron Hcl 4 Mg/2 Ml Vial IVPUSH 08/16/22 00:49 4 mg ONCE ONE Administration <RAMOS [place] - Last Filed: 08/15/22 16:49> Medications Administered Discontinued Medications Generic Name Dose Route Start Last Admin Trade Name Freq PRN Reason Stop Dose Admin Diphenhydramine HCl 25 mg 08/15/22 23:47 08/15/22 23:58 Diphenhydramine Hcl 50 Mg/Ml Vial IVPUSH 08/15/22 23:48 25 mg ONCE ONE Administration Famotidine 20 mg 08/15/22 23:47 08/15/22 23:59 Famotidine/Pf 20 Mg/2 Ml Vial IVPUSH 08/15/22 23:48 20 mg ONCE ONE Administration Sodium Chloride 1,000 mls @ 999 mls/hr 08/15/22 23:45 08/16/22 01:17 Ns IV 08/16/22 00:45 Infused .Q1H1M ALLAN Infusion Metoclopramide HCl 10 mg 08/15/22 23:47 08/15/22 23:58 Metoclopramide Hcl 10 Mg/2 Ml Vial IVPUSH 08/15/22 23:48 10 mg ONCE ONE Administration Ondansetron HCl 4 mg 08/16/22 00:48 08/16/22 01:18 Ondansetron Hcl 4 Mg/2 Ml Vial IVPUSH 08/16/22 00:49 4 mg ONCE ONE Administration <Sherman Ellis MD - Last Filed: 08/16/22 02:59> Discharge Plan Discharge Clinical Impression: First trimester , Nausea & vomiting, Elevated liver function tests <RAMOS [place] - Last Filed: 08/15/22 16:49> Patient Disposition: Home, Self-Care <RAMOS [place] - Last Filed: 08/15/22 16:49> Instructions: Hyperemesis Gravidarum (ED), Acute Nausea and Vomiting (ED), First Trimester (ED) <RAMOS [place] - Last Filed: 08/15/22 16:49> Prescriptions: New doxylamine-pyridoxine (vit B6) [Diclegis] 10-10 mg tablet,delayed release (DR/EC) 1 tab PO DAILY Qty: 14 0RF Discontinued pyridoxine (vitamin B6) 50 mg tablet 25 mg PO Q8H 90 Days Qty: 135 0RF No Action chlorpromazine 10 mg Tablet 10 mg PO Q4H PRN (Reason: nausea and/or vomiting) Qty: 30 0RF famotidine 20 mg Tablet 20 mg PO BID PRN (Reason: Heartburn) Qty: 40 0RF folic acid 1 mg Tablet 0.5 mg PO DAILY Qty: 90 0RF <RAMOS [place] - Last Filed: 08/15/22 16:49> Referrals: Cain Combs MD [Physician] - 2 days <RAMOS [place] - Last Filed: 08/15/22 16:49>
[2022-08-15 18:23] LABS: MANUAL DIFF FLAG NO
[2022-08-15 18:25] LABS: Basophils Percent Auto 0.1 % (0-2); Hematocrit 35.6 % (37.0-47.0); Hemoglobin 12.5 g/dl (12.0-16.0); Imm Gran Abs Auto 0.02 X10*3/uL (0.00-0.03); Imm Gran Pct Auto 0.3 % (0.0-0.4); Lymphocytes Absolute Auto 0.7 X10*3/uL (1.2-4.9); Lymphocytes Percent Auto 9.9 % (20-40); Mean Corpuscular HGB Conc 35.1 g/dl (31.0-35.0); Mean Corpuscular Volume 85.4 fL (80.0-98.0); Monocytes Absolute Auto 0.2 X10*3/uL (0.1-1.2); Neutrophils Absolute Auto 5.8 x10*3/uL (2.0-8.3); Neutrophils Percent Auto 86.7 % (45-73); Platelet Count 300 X10*3/uL (160-400); Red Blood Count 4.17 X10*6/uL (4.20-5.50); Red Cell Distribution Width 13.6 % (11.0-16.0); White Blood Count 6.7 X10*3/uL (4.8-10.8)
[2022-08-15 18:30] LABS: INTERNATIONAL NORM RATIO 1.4 (0.9-1.1); Prothrombin Time 16.2 SEC (10.0-13.1)
[2022-08-15 18:50] LABS: Alanine Aminotransferase 87 U/L (0-31); Albumin Level 4.2 g/dL (3.5-5.0); Alkaline Phosphatase 114 U/L (39-117); Anion Gap 14 (12-20); Aspartate Amino Transferase 35 U/L (5-31); Blood Urea Nitrogen 7 mg/dL (9-16); Calcium 9.5 mg/dL (8.4-10.2); Carbon Dioxide 20 mmol/L (22-29); Chloride 102 mmol/L (96-108); Creatinine Clr Calc Pharmacy 116.6; Estimated Glomerular Filt Rate > 60; Glucose Random 86 mg/dL (60-115); Lipase 26 U/L (8-78); Sodium 132 mmol/L (135-145); Total Protein 7.3 g/dL (6.5-8.0)
[2022-08-15 19:05] LABS: Influenza A PCR NEGATIVE (Negative); Influenza B PCR NEGATIVE (Negative); Resp Syncy Virus RNA Qual PCR NEGATIVE (Negative); SARS COV2 PCR INHOUSE NEGATIVE (Negative)
[2022-08-15 23:14] VITALS: BP 105/70; PULSE 74; RESP 20; TEMP 37.2; O2SAT 98
--- NOTE | 2022-08-15 23:45 | PC.NURSE ---
PT A&Ox4, reports N/V x 3 days. Denies any diarrhea. States I get abdominal pain only when I vomit, and I am not able to keep anything down . IV line established, meds given as documented.
[2022-08-15] MEDS: diphenhydrAMINE HCL 50 MG/ML VIAL 25 MG IVPUSH (23:58)
[2022-08-15] MEDS: Metoclopramide HCl 10 MG/2 ML VIAL IVPUSH (23:58)
[2022-08-15] MEDS: Famotidine/PF 20 MG/2 ML VIAL IVPUSH (23:59)
[2022-08-16] MEDS: 0.9 % Sodium Chloride 1,000 ML 999 ML IV (00:03)
[2022-08-16] MEDS: ondansetron HCL 4 MG/2 ML VIAL IVPUSH (01:18)
[2022-08-16 01:21] VITALS: BP 103/57; PULSE 72; RESP 16; O2SAT 96
== END 2022-08-16 03:29 | disposition home or self-care (01) ==
PROVIDERS: Physician Assistant Medical; Emergency Provider Emergency Medicine
DX: O26.91 Pregnancy related conditions, unspecified, first trimester (principal); Z3A.12 12 weeks gestation of pregnancy; R11.2 Nausea with vomiting, unspecified; M79.10 Myalgia, unspecified site; R42 Dizziness and giddiness; Z20.822 Contact with and (suspected) exposure to COVID-19; Z20.828 Contact with and (suspected) exposure to other viral communicable diseases; Z79.899 Other long term (current) drug therapy
CPT/HCPCS: 0241U; 36415; 76705; 76815; 80053; 83690; 83735; 84702; 85025; 85610; 96361; 96374; 96375; 99284; J1200; J2405; J2765

== ENCOUNTER 2022-08-28 09:17 | Emergency (ER) | payer OTHER, SELFPAY ==
[2022-08-28 09:34] VITALS: BP 94/54; PULSE 91; RESP 14; TEMP 36.8; O2SAT 98; BMI 24.2
--- NOTE | 2022-08-28 10:48 | ED.WOUNDLAC ---
HPI - Wound/Laceration General Chief Complaint: Wound/Laceration Stated Complaint: wound check Time Seen by Provider: 08/28/22 10:01 Source: patient, old records reviewed and front desk specialist Mode of arrival: ambulatory Limitations: no limitations History of Present Illness HPI narrative: 26 yo Georgian-speaking female presents to the ER for postoperative evaluation after she had her gallbladder removed by Dr. jose daniel lei on August 09. She states she has been trying to make an appointment with the office however due to language barrier difficulties she has been unable to successfully make an appointment. She reports her pain has been of 4/10, only with movement and trying to get up out of bed. She does have some difficulty sleeping with position changes throughout the night. She has not been taking any medications for pain. She is moving her bowels normally. No fevers. No redness or drainage from the wounds. Associated symptoms: pain Related Data Previous Rx's Medication Instructions Recorded chlorpromazine 10 mg tablet 10 mg PO Q4H PRN nausea and/or 08/13/22 vomiting #30 tabs famotidine 20 mg tablet 20 mg PO BID PRN Heartburn #40 tabs 08/13/22 folic acid 1 mg tablet 0.5 mg PO DAILY #90 tabs 08/13/22 doxylamine 10 mg-pyridoxine (vit 1 tab PO DAILY #14 tabs 08/16/22 B6) 10 mg tablet,delayed release (Diclegis) Allergies Allergy/AdvReac Type Severity Reaction Status Date / Time No Known Allergies Allergy Verified 08/08/22 17:59 Review of Systems Review of Systems: Yes all other systems are reviewed and are negative PMFSH Past Medical History Medical History Cholecystitis Social History Social History Household Members: Spouse and Family Housing: Apartment Do you presently have visiting nurse or other home services: No Alcohol intake: never Patient Tobacco Use Status: Never used Tobacco Advance Directives: No service: No Physical Exam Vital Signs: Vital Signs: Last Vital Signs Temp 98.3 F 08/28/22 09:34 Pulse 91 08/28/22 09:34 Resp 14 08/28/22 09:34 BP 94/54 L 08/28/22 09:34 Pulse Ox 98 08/28/22 09:34 O2 Del Method 08/28/22 09:34 BMI result Body Mass Index 24.2 Appearance: Alert. Oriented X3. No acute distress. HEENT: normal inspection CVS: Normal heart rate and rhythm. Pulses normal. Respiratory: No respiratory distress. Breath sounds normal. Abdomen: Multiple well healing surgical scars on the abd c/w recent lap cholecystectomy. no surrounding erythema or drainage. Soft with minimal periumbilical tenderness normal +BS x4 Skin: Skin warm and dry. Normal skin color. Normal skin turgor. No rashes. Extremities: Normal inspection x4, normal ROM Neuro: Oriented X 3. nonfocal Course Course Course Narrative: 26-year-old female who is postop from a laparoscopic cholecystectomy on August 09 presents to the ER for evaluation. Unable to make an appointment with outpatient surgery and wants to make sure everything is okay. She appears well. Appears to be healing appropriately. No signs of infection. No OB complications. She is moving her bowels well, no fevers. belling machine operator used to discuss the plan moving forward. Dr. Solano was contacted. He no longer needs to see her in the office. Recommending follow-up with OBGYN. Patient agrees with plan. Stable for discharge home. Medical Decision Making Differential Diagnosis Differential Diagnoses: The differential diagnosis associated with the presentation includes normal post-op pain, no evidence of cellulitis or post-op infection, constipation or bowel obsstruction. Consult Healthcare Provider Management of the patient was discussed with: Director Software Dr. Shu mcguire surgery contacted Independent Historian Clinical information obtained from an independent historian. History obtained from or confirmed by: Spouse External Record Review External record reviewed: Inpatient record, Outpatient record, Prior outpatient labs and Prior outpatient radiology Prescription Management I considered prescription management with: Pain Medication encouraged tylenol only as needed Chronic Conditions Patient?s care impacted by: Other () Critical Care Time Critical Care Time Critical Care Time: No Discharge Plan Discharge Clinical Impression: Post-op pain Patient Disposition: Home, Self-Care Instructions: Pain Management After Surgery (DC) Additional Instructions: It is safe for you to take TYLENOL ONLY for pain Your steri-strips will fall off on their own, do not peel them off Recommend Miralax as needed for constipation Follow up with your WIND FARM OPERATIONS MANAGER If you develop new or worsening symptoms call 911 or come back to the ER for further evaluation. Es seguro para usted emigdio TYLENOL SOLAMENTE para el dolor Tus steri-strips se caer?n solas, no las despegues. Recomiende Miralax seg?n sea necesario para el estre?imiento Cecilia un seguimiento con monsivais obstetra/ginec?logo Si desarrolla s?ntomas nuevos o que empeoran, llame al 911 o regrese a la gil de emergencias para awilda evaluaci?n adicional. Prescriptions: No Action chlorpromazine 10 mg Tablet 10 mg PO Q4H PRN (Reason: nausea and/or vomiting) Qty: 30 0RF famotidine 20 mg Tablet 20 mg PO BID PRN (Reason: Heartburn) Qty: 40 0RF folic acid 1 mg Tablet 0.5 mg PO DAILY Qty: 90 0RF doxylamine-pyridoxine (vit B6) [Diclegis] 10-10 mg tablet,delayed release (DR/EC) 1 tab PO DAILY Qty: 14 0RF Print Language: Georgian
== END 2022-08-28 11:18 | disposition home or self-care (01) ==
PROVIDERS: Emergency Provider Emergency Medicine
DX: G89.18 Other acute postprocedural pain (principal); Z90.49 Acquired absence of other specified parts of digestive tract
CPT/HCPCS: 99282; 99283

== ENCOUNTER 2022-09-07 19:21 | Emergency (ER) | payer OTHER, SELFPAY ==
--- NOTE | ~2022-09-07 | US_ITS ---
EXAMINATION: ULTRASOUND OB LIMITED CLINICAL INFORMATION: Right lower quadrant pain COMPARISON: 08/15/2022 TECHNIQUE: Sonographic evaluation of the pelvis was performed transabdominally. FINDINGS: Single live intrauterine is identified in cephalic position. heart beat is identified with a rate of 147 bpm. movement is observed. Femur length measures 1.9 cm, corresponding to gestational age of 15 weeks 5 days. The left ovary measures 2.7 x 1.3 x 1.3 cm and appears unremarkable. The right ovary measures 2.3 x 1.7 x 1.3 cm and also appears unremarkable. US/US OB limited IMPRESSION: Single live intrauterine . Ovaries appear unremarkable.
--- NOTE | 2022-09-07 19:35 | ED.URI ---
HPI - URI/Sore Throat General Chief Complaint: Upper Respiratory Symptoms <Emmy Santana NP - Last Filed: 09/07/22 19:39> Stated Complaint: headache, throat pain <Emmy Santana NP - Last Filed: 09/07/22 19:39> Time Seen by Provider: 09/07/22 21:05 <Emmy Santana NP - Last Filed: 09/07/22 19:39> Source: patient, family and sales communications manager <Aparna Gifford MD - Last Filed: 09/08/22 01:31> Mode of arrival: ambulatory <Aparna Gifford MD - Last Filed: 09/08/22 01:31> History of Present Illness HPI Narrative: 26-year-old female, currently at 16 weeks of gestation and 1 month out from undergoing laparoscopic cholecystectomy presents for not feeling well for the last 3 days with dry cough, headache, runny nose, difficulty sleeping, nausea, vomiting. I do note that in the triage note she states right lower quadrant pain, but to me she points specifically to the umbilical scar and states that she has pain at that location when she coughs. She otherwise denies any vaginal bleeding or lower abdominal cramping <Aparna Gifford MD - Last Filed: 09/08/22 01:31> Related Data Home Medications: Previous Rx's Medication Instructions Recorded chlorpromazine 10 mg tablet 10 mg PO Q4H PRN nausea and/or 08/13/22 vomiting #30 tabs famotidine 20 mg tablet 20 mg PO BID PRN Heartburn #40 tabs 08/13/22 folic acid 1 mg tablet 0.5 mg PO DAILY #90 tabs 08/13/22 doxylamine 10 mg-pyridoxine (vit 1 tab PO DAILY #14 tabs 08/16/22 B6) 10 mg tablet,delayed release (Diclegis) <Emmy Santana NP - Last Filed: 09/07/22 19:39> Allergies/Adverse Reactions: Allergies Allergy/AdvReac Type Severity Reaction Status Date / Time No Known Allergies Allergy Verified 08/08/22 17:59 <Emmy Santana NP - Last Filed: 09/07/22 19:39> Review of Systems Review of Systems: Pertinent positives and negatives as stated in the HPI <Aparna Gifford MD - Last Filed: 09/08/22 01:31> PMFSH Past Medical History Source: nursing notes reviewed <Aparna Gifford MD - Last Filed: 09/08/22 01:31> Medical History: Medical History Cholecystitis <Emmy Santana NP - Last Filed: 09/07/22 19:39> Social History Social History: Social History Household Members: Spouse and Family Housing: Apartment Do you presently have visiting nurse or other home services: No Alcohol intake: never Patient Tobacco Use Status: Never used Tobacco Advance Directives: Yes Advance Directives on File: Yes Advance Directives Date on File: 08/14/22 service: No <Emmy Santana NP - Last Filed: 09/07/22 19:39> Physical Exam Vital Signs: Vital Signs: Last Vital Signs Temp 98.1 F 09/07/22 19:40 Pulse 82 09/07/22 19:40 Resp 16 09/07/22 19:40 BP 105/54 L 09/07/22 19:40 Pulse Ox 97 09/07/22 19:40 O2 Del Method 09/07/22 19:40 BMI result Body Mass Index 18.6 <Emmy Santana NP - Last Filed: 09/07/22 19:39> Vital Signs: Last Vital Signs Temp 98.1 F 09/07/22 19:40 Pulse 82 09/07/22 19:40 Resp 16 09/07/22 19:40 BP 105/54 L 09/07/22 19:40 Pulse Ox 97 09/07/22 19:40 O2 Del Method 09/07/22 19:40 BMI result Body Mass Index 18.6 VITAL SIGNS: Reviewed. GENERAL: Well developed, well nourished, in mild distress. HEAD: Normocephalic/atraumatic EYES: PERRLA, EOMI EARS: Ext canals without abnormality, TMs non-bulging and non-erythematous NOSE: Nares patent bilateral OROPHARYNX: no oral lesions noted, posterior pharynx clear and non-erythematous without noted tonsillar enlargement/erythema/exudates NECK: Supple, no adenopathy LUNGS: Normal breath sounds. No adventitious sounds or accessory muscle use. SpO2<97> CARDIOVASCULAR: Regular rate and rhythm without noted murmurs ABDOMEN: Soft, some periumbilical discomfort, no hernia appreciated, non-distended with bowel sounds. MUSCULOSKELETAL: No tenderness, deformities, or effusions noted on gross inspection. EXTREMITIES: No cyanosis, clubbing or edema. SKIN: Inspection of the skin reveals no rashes NEUROLOGIC: Alert and oriented x 4. Strength and sensation to light touch were grossly intact x 4. <Aparna Gifford MD - Last Filed: 09/08/22 01:31> Course Course Course Narrative: This is a rapid medical exam. Deferred additional HPI, ROS, PE to primary provider. 26 yo female here with sore throat, headache, rhinorrhea, lower abdominal pain, cough, congestion chest discomfort since yesterday. No sick contact. She is 16 weeks . No vaginal bleeding. Will obtain labs, UA, viral testing/strep. VSS <Emmy Santana NP - Last Filed: 09/07/22 19:39> Medications Administered Discontinued Medications Generic Name Dose Route Start Last Admin Trade Name Freq PRN Reason Stop Dose Admin Acetaminophen 975 mg 09/07/22 22:03 09/07/22 22:27 Acetaminophen 325 Mg Tablet PO 09/07/22 22:04 975 mg ONCE ONE Administration Sodium Chloride 1,000 mls @ 999 mls/hr 09/07/22 22:15 09/08/22 00:47 Ns IV 09/07/22 23:15 Infused .Q1H1M ALLAN Infusion Lactated Ringer's 1,000 mls @ 999 mls/hr 09/07/22 22:30 09/08/22 00:47 Lr IV 09/07/22 23:30 Infused .Q1H1M ALLAN Infusion Ondansetron HCl 4 mg 09/07/22 22:10 09/07/22 22:19 Ondansetron Odt 4 Mg Tab.Rapdis TRANSLINGU 09/07/22 22:11 4 mg ONCE ONE Administration <Emmy Santana NP - Last Filed: 09/07/22 19:39> Medications Administered Discontinued Medications Generic Name Dose Route Start Last Admin Trade Name Freq PRN Reason Stop Dose Admin Acetaminophen 975 mg 09/07/22 22:03 09/07/22 22:27 Acetaminophen 325 Mg Tablet PO 09/07/22 22:04 975 mg ONCE ONE Administration Sodium Chloride 1,000 mls @ 999 mls/hr 09/07/22 22:15 09/08/22 00:47 Ns IV 09/07/22 23:15 Infused .Q1H1M ALLAN Infusion Lactated Ringer's 1,000 mls @ 999 mls/hr 09/07/22 22:30 09/08/22 00:47 Lr IV 09/07/22 23:30 Infused .Q1H1M ALLAN Infusion Ondansetron HCl 4 mg 09/07/22 22:10 09/07/22 22:19 Ondansetron Odt 4 Mg Tab.Rapdis TRANSLINGU 09/07/22 22:11 4 mg ONCE ONE Administration <Aparna Gifford MD - Last Filed: 09/08/22 01:31> Medical Decision Making Medical Decision Making MDM Narrative: 26-year-old female, , on review of all investigations my interpretation is this patient has viral syndrome and is influenza B positive with a component of dehydration. Will rehydrate patient with 2 L of IV fluids, give anti emetics, Tylenol, patient is outside the window for Tamiflu. Although patient states that she has never been given anything for nausea on review of her medication list there are different kinds of medication noted to treat nausea so will confirm that patient understands that these medications are intended for that purpose. Review of all investigations my interpretation is this patient is suffering from viral syndrome, dehydration, influenza. Patient has received 2 L of IV fluids for rehydration, antinausea medication is currently tolerating a p.o. intake. She is strongly encouraged to follow-up with her manager equity tomorrow morning. <Aparna Gifford MD - Last Filed: 09/08/22 01:31> Differential Diagnosis Please see the discussion above <Aparna Gifford MD - Last Filed: 09/08/22 01:31> Lab Data Please see the discussion above <Aparna Gifford MD - Last Filed: 09/08/22 01:31> Result Diagrams: 09/07/22 19:58 09/07/22 19:58 <Emmy Santana NP - Last Filed: 09/07/22 19:39> Labs: Lab Results 09/07/22 09/07/22 09/07/22 Range/Units 19:58 19:58 19:58 WBC 6.4 (4.8-10.8) X10*3/uL RBC 3.65 L (4.20-5.50) X10*6/uL Hgb 10.9 L (12.0-16.0) g/dl Hct 31.1 L (37.0-47.0) % MCV 85.2 (80.0-98.0) fL MCH 29.9 (27.0-33.0) pg MCHC 35.0 (31.0-35.0) g/dl RDW 13.8 (11.0-16.0) % Plt Count 342 (160-400) X10*3/uL MPV 10.0 (9.4-12.3) fL Immature Gran % (Auto) 0.5 H (0.0-0.4) % Neut % (Auto) 74.1 H (45-73) % Lymph % (Auto) 18.1 L (20-40) % [place] % (Auto) 7.1 (2-11) % Eos % (Auto) 0.0 (0-4) % Baso % (Auto) 0.2 (0-2) % Lymph # (Auto) 1.2 (1.2-4.9) X10*3/uL [place] # (Auto) 0.5 (0.1-1.2) X10*3/uL Eos # (Auto) 0.0 (0.0-0.4) X10*3/uL Baso # (Auto) 0.0 (0.0-0.2) X10*3/uL Abs Immat Gran (auto) 0.03 (0.00-0.03) X10*3/uL Absolute Neuts (auto) 4.7 (2.0-8.3) x10*3/uL Absolute Nucleated RBC 0.000 (0.0-0.012) X10*3/uL Nucleated RBC % (auto) 0.0 (0.0-0.2) /100WBC Sodium (135-145) mmol/L Potassium (3.3-5.1) mmol/L Chloride (96-108) mmol/L Carbon Dioxide (22-29) mmol/L Anion Gap (12-20) BUN (9-16) mg/dL Creatinine (0.5-1.4) mg/dL Estim Creat Clear Calc Estimated GFR Random Glucose (60-115) mg/dL Calcium (8.4-10.2) mg/dL Total Bilirubin (0.0-1.0) mg/dL Direct Bilirubin (0.0-0.5) mg/dL AST (5-31) U/L ALT (0-31) U/L Alkaline Phosphatase (39-117) U/L Total Protein (6.5-8.0) g/dL Albumin (3.5-5.0) g/dL Urine Color Urine Appearance Urine pH (5.0-9.0) Ur Specific Schriever (1.005-1.025) Urine Protein (Neg-Trace) mg/dL Urine Glucose (UA) (Negative) mg/dL Urine Ketones (Negative) mg/dL Urine Blood (Negative) Urine Nitrite (Negative) Ur Leukocyte Esterase (Negative) Urine RBC (0-2) /HPF Urine WBC (0-5) /HPF Ur Squamous Epith Cells (0-2) /HPF Urine Bacteria (None Seen) Hyaline Casts (0-2) /LPF Urine Test (NEGATIVE) Influenza Type A (PCR) NEGATIVE (Negative) Influenza Type B (PCR) POSITIVE A (Negative) RSV RNA Qual (PCR) NEGATIVE (Negative) SARS-CoV-2 RNA (RT-PCR) NEGATIVE (Negative) S. pyogenes GrpA PARUL Negative (Negative) 09/07/22 09/07/22 09/07/22 Range/Units 19:58 19:58 19:59 WBC (4.8-10.8) X10*3/uL RBC (4.20-5.50) X10*6/uL Hgb (12.0-16.0) g/dl Hct (37.0-47.0) % MCV (80.0-98.0) fL MCH (27.0-33.0) pg MCHC (31.0-35.0) g/dl RDW (11.0-16.0) % Plt Count (160-400) X10*3/uL MPV (9.4-12.3) fL Immature Gran % (Auto) (0.0-0.4) % Neut % (Auto) (45-73) % Lymph % (Auto) (20-40) % [place] % (Auto) (2-11) % Eos % (Auto) (0-4) % Baso % (Auto) (0-2) % Lymph # (Auto) (1.2-4.9) X10*3/uL [place] # (Auto) (0.1-1.2) X10*3/uL Eos # (Auto) (0.0-0.4) X10*3/uL Baso # (Auto) (0.0-0.2) X10*3/uL Abs Immat Gran (auto) (0.00-0.03) X10*3/uL Absolute Neuts (auto) (2.0-8.3) x10*3/uL Absolute Nucleated RBC (0.0-0.012) X10*3/uL Nucleated RBC % (auto) (0.0-0.2) /100WBC Sodium 134 L (135-145) mmol/L Potassium 3.5 (3.3-5.1) mmol/L Chloride 103 (96-108) mmol/L Carbon Dioxide 19 L (22-29) mmol/L Anion Gap 16 (12-20) BUN 5 L (9-16) mg/dL Creatinine 0.46 L (0.5-1.4) mg/dL Estim Creat Clear Calc 129.2 Estimated GFR > 60 Random Glucose 96 (60-115) mg/dL Calcium 9.0 (8.4-10.2) mg/dL Total Bilirubin 1.0 (0.0-1.0) mg/dL Direct Bilirubin 0.4 (0.0-0.5) mg/dL AST 41 H (5-31) U/L ALT 55 H (0-31) U/L Alkaline Phosphatase 126 H (39-117) U/L Total Protein 6.8 (6.5-8.0) g/dL Albumin 3.8 (3.5-5.0) g/dL Urine Color Dark Yellow Urine Appearance Cloudy Urine pH 5.5 (5.0-9.0) Ur Specific Schriever >= 1.030 H (1.005-1.025) Urine Protein Trace (Neg-Trace) mg/dL Urine Glucose (UA) Negative (Negative) mg/dL Urine Ketones 15 (Negative) mg/dL Urine Blood Negative (Negative) Urine Nitrite Negative (Negative) Ur Leukocyte Esterase Trace H (Negative) Urine RBC 0-2 (0-2) /HPF Urine WBC 0-5 (0-5) /HPF Ur Squamous Epith Cells 11-20 (0-2) /HPF Urine Bacteria 3+ (None Seen) Hyaline Casts 0-2 (0-2) /LPF Urine Test POSITIVE H (NEGATIVE) Influenza Type A (PCR) (Negative) Influenza Type B (PCR) (Negative) RSV RNA Qual (PCR) (Negative) SARS-CoV-2 RNA (RT-PCR) (Negative) S. pyogenes GrpA PARUL (Negative) <Emmy Santana VICE PRESIDENT OF CONTRACTS - Last Filed: 09/07/22 19:39> Lab Results 09/07/22 09/07/22 09/07/22 Range/Units 19:58 19:58 19:58 WBC 6.4 (4.8-10.8) X10*3/uL RBC 3.65 L (4.20-5.50) X10*6/uL Hgb 10.9 L (12.0-16.0) g/dl Hct 31.1 L (37.0-47.0) % MCV 85.2 (80.0-98.0) fL MCH 29.9 (27.0-33.0) pg MCHC 35.0 (31.0-35.0) g/dl RDW 13.8 (11.0-16.0) % Plt Count 342 (160-400) X10*3/uL MPV 10.0 (9.4-12.3) fL Immature Gran % (Auto) 0.5 H (0.0-0.4) % Neut % (Auto) 74.1 H (45-73) % Lymph % (Auto) 18.1 L (20-40) % [place] % (Auto) 7.1 (2-11) % Eos % (Auto) 0.0 (0-4) % Baso % (Auto) 0.2 (0-2) % Lymph # (Auto) 1.2 (1.2-4.9) X10*3/uL [place] # (Auto) 0.5 (0.1-1.2) X10*3/uL Eos # (Auto) 0.0 (0.0-0.4) X10*3/uL Baso # (Auto) 0.0 (0.0-0.2) X10*3/uL Abs Immat Gran (auto) 0.03 (0.00-0.03) X10*3/uL Absolute Neuts (auto) 4.7 (2.0-8.3) x10*3/uL Absolute Nucleated RBC 0.000 (0.0-0.012) X10*3/uL Nucleated RBC % (auto) 0.0 (0.0-0.2) /100WBC Sodium (135-145) mmol/L Potassium (3.3-5.1) mmol/L Chloride (96-108) mmol/L Carbon Dioxide (22-29) mmol/L Anion Gap (12-20) BUN (9-16) mg/dL Creatinine (0.5-1.4) mg/dL Estim Creat Clear Calc Estimated GFR Random Glucose (60-115) mg/dL Calcium (8.4-10.2) mg/dL Total Bilirubin (0.0-1.0) mg/dL Direct Bilirubin (0.0-0.5) mg/dL AST (5-31) U/L ALT (0-31) U/L Alkaline Phosphatase (39-117) U/L Total Protein (6.5-8.0) g/dL Albumin (3.5-5.0) g/dL Urine Color Urine Appearance Urine pH (5.0-9.0) Ur Specific [place] (1.005-1.025) Urine Protein (Neg-Trace) mg/dL Urine Glucose (UA) (Negative) mg/dL Urine Ketones (Negative) mg/dL Urine Blood (Negative) Urine Nitrite (Negative) Ur Leukocyte Esterase (Negative) Urine RBC (0-2) /HPF Urine WBC (0-5) /HPF Ur Squamous Epith Cells (0-2) /HPF Urine Bacteria (None Seen) Hyaline Casts (0-2) /LPF Urine Test (NEGATIVE) Influenza Type A (PCR) NEGATIVE (Negative) Influenza Type B (PCR) POSITIVE A (Negative) RSV RNA Qual (PCR) NEGATIVE (Negative) SARS-CoV-2 RNA (RT-PCR) NEGATIVE (Negative) S. pyogenes GrpA PARUL Negative (Negative) 09/07/22 09/07/22 09/07/22 Range/Units 19:58 19:58 19:59 WBC (4.8-10.8) X10*3/uL RBC (4.20-5.50) X10*6/uL Hgb (12.0-16.0) g/dl Hct (37.0-47.0) % MCV (80.0-98.0) fL MCH (27.0-33.0) pg MCHC (31.0-35.0) g/dl RDW (11.0-16.0) % Plt Count (160-400) X10*3/uL MPV (9.4-12.3) fL Immature Gran % (Auto) (0.0-0.4) % Neut % (Auto) (45-73) % Lymph % (Auto) (20-40) % [place] % (Auto) (2-11) % Eos % (Auto) (0-4) % Baso % (Auto) (0-2) % Lymph # (Auto) (1.2-4.9) X10*3/uL [place] # (Auto) (0.1-1.2) X10*3/uL Eos # (Auto) (0.0-0.4) X10*3/uL Baso # (Auto) (0.0-0.2) X10*3/uL Abs Immat Gran (auto) (0.00-0.03) X10*3/uL Absolute Neuts (auto) (2.0-8.3) x10*3/uL Absolute Nucleated RBC (0.0-0.012) X10*3/uL Nucleated RBC % (auto) (0.0-0.2) /100WBC Sodium 134 L (135-145) mmol/L Potassium 3.5 (3.3-5.1) mmol/L Chloride 103 (96-108) mmol/L Carbon Dioxide 19 L (22-29) mmol/L Anion Gap 16 (12-20) BUN 5 L (9-16) mg/dL Creatinine 0.46 L (0.5-1.4) mg/dL Estim Creat Clear Calc 129.2 Estimated GFR > 60 Random Glucose 96 (60-115) mg/dL Calcium 9.0 (8.4-10.2) mg/dL Total Bilirubin 1.0 (0.0-1.0) mg/dL Direct Bilirubin 0.4 (0.0-0.5) mg/dL AST 41 H (5-31) U/L ALT 55 H (0-31) U/L Alkaline Phosphatase 126 H (39-117) U/L Total Protein 6.8 (6.5-8.0) g/dL Albumin 3.8 (3.5-5.0) g/dL Urine Color Dark Yellow Urine Appearance Cloudy Urine pH 5.5 (5.0-9.0) Ur Specific [place] >= 1.030 H (1.005-1.025) Urine Protein Trace (Neg-Trace) mg/dL Urine Glucose (UA) Negative (Negative) mg/dL Urine Ketones 15 (Negative) mg/dL Urine Blood Negative (Negative) Urine Nitrite Negative (Negative) Ur Leukocyte Esterase Trace H (Negative) Urine RBC 0-2 (0-2) /HPF Urine WBC 0-5 (0-5) /HPF Ur Squamous Epith Cells 11-20 (0-2) /HPF Urine Bacteria 3+ (None Seen) Hyaline Casts 0-2 (0-2) /LPF Urine Test POSITIVE H (NEGATIVE) Influenza Type A (PCR) (Negative) Influenza Type B (PCR) (Negative) RSV RNA Qual (PCR) (Negative) SARS-CoV-2 RNA (RT-PCR) (Negative) S. pyogenes GrpA PARUL (Negative) <Aparna Gifford MD - Last Filed: 09/08/22 01:31> Radiology Impression Radiologist Impression: My interpretation is in agreement with radiology's impression of the imaging study. <Aparna Gifford MD - Last Filed: 09/08/22 01:31> External Record Review External record reviewed: Outpatient record and Prior outpatient labs <Aparna Gifford MD - Last Filed: 09/08/22 01:31> Critical Care Time Critical Care Time Critical Care Time: Yes <Aparna Gifford MD - Last Filed: 09/08/22 01:31> Total Critical Care Time: 30 <Aparna Gifford MD - Last Filed: 09/08/22 01:31> Attestation: I personally attest to this time spent taking care of the patient. <Aparna Gifford MD - Last Filed: 09/08/22 01:31> Discharge Plan Discharge Clinical Impression: Viral syndrome, Influenza B, Dehydration, <Emmy Santana NP - Last Filed: 09/07/22 19:39> Patient Disposition: Home, Self-Care <Emmy Santana NP - Last Filed: 09/07/22 19:39> Instructions: Viral Syndrome (ED), Influenza (ED), (ED), Dehydration (ED) <Emmy Santana NP - Last Filed: 09/07/22 19:39> Additional Instructions: 1. Debe continuar tomando ankit vitaminas prenatales, tambi?n tiene 2 medicamentos diferentes que debe usar para cualquier n?usea y v?chao que est? experimentando. 2. Contin?e bebiendo muchos l?quidos, descanse y llame al consultorio de monsivais obstetra a primera hora de la ma?jv. Regrese a la gil de emergencias si los s?ntomas empeoran. 1. You should continue to take your vitamins, also you have 2 different medications that you should be using for any nausea and vomiting that you are experiencing. 2. Continue to drink plenty of fluids, rest, and call the office of your manager equity 1st thing in the morning. Return to the ER for any worsening symptoms. <Emmy Santana NP - Last Filed: 09/07/22 19:39> Prescriptions: No Action chlorpromazine 10 mg Tablet 10 mg PO Q4H PRN (Reason: nausea and/or vomiting) Qty: 30 0RF famotidine 20 mg Tablet 20 mg PO BID PRN (Reason: Heartburn) Qty: 40 0RF folic acid 1 mg Tablet 0.5 mg PO DAILY Qty: 90 0RF doxylamine-pyridoxine (vit B6) [Diclegis] 10-10 mg tablet,delayed release (DR/EC) 1 tab PO DAILY Qty: 14 0RF <Emmy Santana NP - Last Filed: 09/07/22 19:39> Print Language: Urdu <Emmy Santana VICE PRESIDENT OF CONTRACTS - Last Filed: 09/07/22 19:39>
[2022-09-07 19:40] VITALS: BP 105/54; PULSE 82; RESP 16; TEMP 36.7; O2SAT 97; BMI 18.6
[2022-09-07 20:05] LABS: MANUAL DIFF FLAG NO
[2022-09-07 20:13] LABS: Basophils Percent Auto 0.2 % (0-2); Hematocrit 31.1 % (37.0-47.0); Hemoglobin 10.9 g/dl (12.0-16.0); Imm Gran Abs Auto 0.03 X10*3/uL (0.00-0.03); Imm Gran Pct Auto 0.5 % (0.0-0.4); Lymphocytes Absolute Auto 1.2 X10*3/uL (1.2-4.9); Lymphocytes Percent Auto 18.1 % (20-40); Mean Corpuscular Hemoglobin 29.9 pg (27.0-33.0); Mean Corpuscular Volume 85.2 fL (80.0-98.0); Monocytes Absolute Auto 0.5 X10*3/uL (0.1-1.2); Monocytes Percent Auto 7.1 % (2-11); Neutrophils Absolute Auto 4.7 x10*3/uL (2.0-8.3); Neutrophils Percent Auto 74.1 % (45-73); Platelet Count 342 X10*3/uL (160-400); Red Blood Count 3.65 X10*6/uL (4.20-5.50); Red Cell Distribution Width 13.8 % (11.0-16.0); White Blood Count 6.4 X10*3/uL (4.8-10.8)
[2022-09-07 20:14] LABS: Appearance Urine Cloudy; Color Urine Dark Yellow; Glucose Urine UA Negative (Negative); Leukocyte Esterase Urine Trace (Negative); Nitrite Urine Negative (Negative); PH 5.5 (5.0-9.0); Specific Gravity - Urine >= 1.030 (1.005-1.025); UMIC TRIGGER UACC YES; Urine Blood Negative (Negative); Urine Ketones 15 mg/dL (Negative); Urine Protein Trace mg/dL (Neg-Trace)
[2022-09-07 20:16] LABS: UPreg QC Valid YES; Urine Pregnancy POSITIVE (NEGATIVE)
[2022-09-07 20:24] LABS: Bacteria Urine 3+ (None Seen); Hyaline Casts Urine 0-2 /LPF (0-2); RBC Urine 0-2 /HPF (0-2); WBC Urine 0-5 /HPF (0-5)
[2022-09-07 20:29] LABS: Alanine Aminotransferase 55 U/L (0-31); Albumin Level 3.8 g/dL (3.5-5.0); Alkaline Phosphatase 126 U/L (39-117); Anion Gap 16 (12-20); Aspartate Amino Transferase 41 U/L (5-31); Bilirubin Direct 0.4 mg/dL (0.0-0.5); Blood Urea Nitrogen 5 mg/dL (9-16); Carbon Dioxide 19 mmol/L (22-29); Chloride 103 mmol/L (96-108); Creatinine Clr Calc Pharmacy 129.2; Estimated Glomerular Filt Rate > 60; Glucose Random 96 mg/dL (60-115); Potassium 3.5 mmol/L (3.3-5.1); Sodium 134 mmol/L (135-145); Total Protein 6.8 g/dL (6.5-8.0)
[2022-09-07 20:37] LABS: IDNOW Serial# 6674DD1D; Strep A Nucleic Acid Negative (Negative)
[2022-09-07 21:09] LABS: Influenza A PCR NEGATIVE (Negative); Influenza B PCR POSITIVE (Negative); Resp Syncy Virus RNA Qual PCR NEGATIVE (Negative); SARS COV2 PCR INHOUSE NEGATIVE (Negative)
[2022-09-07] MEDS: Ondansetron ODT 4 MG TAB.RAPDIS TRANSLINGU (22:19)
[2022-09-07] MEDS: Acetaminophen 325 MG TABLET 975 MG PO (22:27)
[2022-09-07] MEDS: Lactated Ringers 1,000 ML 999 ML IV (23:27)
[2022-09-07] MEDS: 0.9 % Sodium Chloride 1,000 ML 999 ML IV (23:27)
--- NOTE | 2022-09-08 00:03 | PC.NURSE ---
late entry-pt partner at bedside at this time. iv placed. pt medicated according to sep. HOB lowered lights dimmed at this time
[2022-09-08 01:37] VITALS: BP 103/58; PULSE 70; RESP 20; TEMP 36.4; O2SAT 98
--- NOTE | 2022-09-08 03:13 | PC.NURSE ---
this transition mgr rn pt @ 0205. pt did not leave room until 0300. delivery rep utilized for discharge plan. pt verbalized understanding. pt partner at bedside at this time
== END 2022-09-08 03:15 | disposition home or self-care (01) ==
PROVIDERS: Nurse Practitioner Family; Emergency Provider Student in an Organized Health Care Education/Training Program
DX: J10.1 Influenza due to other identified influenza virus with other respiratory manifestations (principal); B34.9 Viral infection, unspecified; E86.0 Dehydration; R10.2 Pelvic and perineal pain; Z20.828 Contact with and (suspected) exposure to other viral communicable diseases; Z20.822 Contact with and (suspected) exposure to COVID-19; Z79.899 Other long term (current) drug therapy
CPT/HCPCS: 0241U; 36415; 76815; 80048; 80076; 81001; 81025; 85025; 87651; 99284